=== PATIENT | male | born 1975 | race Caucasian/White ===

== ENCOUNTER → 2016-06-08 | Outpatient (CLI) | payer MEDICARE, MEDICAID ==
[~2016-06-08] MED LIST: /AUGM875TA; /NEPHROTA; ACET65TA; AMLO10TA; CARV25TA PO; CATA0.2T; CIPRO; CLON-412 PO; CLON0.2T; COLA100C2; COLA50CA; CORE12.5; CORE25TA; COUM1TAB14 PO; COUM6TAB PO; EPOGEN; KLON0.5T; KLON2TAB; KLON2TAB PO; LYRI200C; LYRI200C PO; LYRI75CA; METH10TA2; METH40TA PO; METH5TAB2; METHADONE; MINOXIDIL; NEPHROVITE; No Historical Meds; PRIL40CA PO; RENA800T; RENA800T7 PO; RENAGEL; VITATAB11 PO; XANA3TAB; [UNRECOGNIZED DRUG - CODE]; [UNRECOGNIZED DRUG - OTHER]; loratidine; minoxidil; sensipar
== END ==
LOC: M LAB 09:38
PROVIDERS: ATTEND Family Medicine
DX: F11.20 Opioid dependence, uncomplicated (principal)

== ENCOUNTER 2016-06-13 00:04 | Emergency (ER) | payer MEDICARE, MEDICAID ==
[2016-06-13] MEDS ORDERED: KETOROLAC 30 MG/ML VIAL (J1885) As Ordered ONE (01:22)
[2016-06-13 01:34] LABS: ABG BASE EXCESS 0.8 (-2.0-2.0); ABG DEVICE NASAL CANN; ABG HCO3 25.7 MEQ/L (22.0-26.0); ABG PARTIAL PRESSURE CO2 41.8 mmHg (35.0-45.0); ABG PARTIAL PRESSURE O2 96.3 mmHg (75.0-100.0); ABG STANDARD HCO3 25.2 MEQ/L (22.0-26.0); ABG TOTAL CO2 26.9 MEQ/L (22.0-29.0); ABG pH (ARTERIAL) 7.406 UNITS (7.350-7.450)
--- NOTE | 2016-06-13 03:40 | EDDOCDS ---
Nurse's Notes [facility] Name: Jas Khan Ii Age: 40 yrs Sex: Male : 1975 Arrival Date: 06/13/2016 Time: 00:04 Bed 15 Private MD: Diagnosis: Pleurodynia;Chest pain on breathing Presentation: 06/13 00:07 Presenting complaint: Patient states: Patient reports sharp pain on inspiration. jmb Patient reports that it does not radiate. Patient reports symptoms present x 3 days. Aspirin was not taken prior to arrival. Adult Sepsis Screening: The patient does not have new or worsening altered mentation. Patient's respiratory rate is less than 22. Systolic blood pressure is greater than 100. Patient has a qSOFA score of. Suicide/Homicide risk assessment- the patient denies having any suicidal and/or homicidal ideations and does not present with any other emotional, behavioral or mental health complaints. Status: Patient is not a service or work dispatcher or dependent. Transition of care: patient was not received from another setting of care. 00:07 Acuity: BRAULIO Level 3 b 00:07 Method Of Arrival: Walkin/Carried/Asstd jmb Triage Assessment: 00:09 General: Appears in no apparent distress. Pain: Location: anterior aspect of right jmb upper chest and right breast Pain currently is 8 out of 10 on a pain scale. HIV screening NA for this visit Offered previously. Neurological: Level of Consciousness is awake, alert, obeys commands, Oriented to person, place, time, Speech is normal, Facial symmetry appears normal, Facial symmetry: tongue is midline. Cardiovascular: Chest pain is described as Pain is 8 out of 10 on a pain scale. radiates Does not radiate. episodes are intermittent began 3 days ago. Respiratory: Airway is patent Respiratory effort is even, unlabored, Respiratory pattern is regular, symmetrical. Derm: Skin is pink, warm & dry. Decubitus. Musculoskeletal: Range of motion intact in all extremities. Historical: - Allergies: No known drug Allergies; - Home Meds: 1. BuSpar 10 mg Oral tab 1 tab 2 times per day 2. Coreg 3.125 mg Oral tab 1 tab 2 times per day 3. Coumadin 2 mg Oral tab once daily for has not been taking 4. gabapentin 800 mg Oral tab 1 tab twice a day 5. Lyrica 200 mg Oral 2 times per day out of 6. methadone 5 mg/5 mL Oral soln 40 mg daily 7. nephrovite 1 tab qd 8. omeprazole 20 mg Oral cpDR 1 cap once daily 9. oscal 500mg 1 tab bid 10. Renvela 800 mg oral tab 1 tab 3 times per day 11. Sensipar 30 mg oral tab 1 tab once daily 12. Xanax 2 mg Oral tab 1 tab 4 times per day - PMHx: CAD; Hypertension; Renal Failure with Dialysis; - PSHx: none; - Social history: Smoking status: Patient uses tobacco products, heavy tobacco smoker. No barriers to communication noted, The patient speaks fluent Martiniquais, Speaks appropriately for age. - Family history: Not pertinent. - : The pt / caregiver states he / she is on anticoagulants: coumadin. Home medication list is obtained from the patient. - Exposure Risk Screening:: None identified. Screenin:21 Screening information is obtained from the patient. Fall risk: No risks identified. tm5 Assistance ADL's: requires no assistance with activities of daily living. Abuse/DV Screen: The patient / caregiver reports he/she is: not in a situation that causes fear, pain or injury. Nutritional screening: No deficits noted. Advance Directives: There is no active DNR order. home support is adequate. Assessment: 00:28 General: Appears in no apparent distress, Behavior is appropriate for age, cooperative. tm5 Pain: Location: anterior aspect of right upper chest and right breast Pain currently is 5 out of 10 on a pain scale. Quality of pain is described as aching, Pain began 2-3 days ago. Neurological: Level of Consciousness is awake, alert, Oriented to person, place, time. Cardiovascular: Rhythm is sinus rhythm No ectopy. Respiratory: Airway is patent Respiratory effort is even, unlabored, Respiratory pattern is regular, symmetrical, Breath sounds are clear bilaterally. GI: No deficits noted. : No deficits noted. Derm: Skin is pink, warm & dry. 01:25 General: medicated per orders, Resp therapy at bedside to draw ABG. Cardiovascular: tm5 Rhythm is sinus rhythm No ectopy. 02:49 Reassessment: Patient appears in no apparent distress at this time. Patient states tm5 feeling better. Patient states symptoms have improved. Cardiovascular: Rhythm is sinus rhythm No ectopy. 03:38 General: [employer] taxi called for pt by this RN, pt awaiting ride in the waiting room . tm5 Vital Signs: 00:09 BP 123 / 78; Pulse 111; Resp 20; Temp 98.0(TE); Pulse Ox 100% ; Weight 61.23 kg (R); [facility] Height 5 ft. 5 in. (165.10 cm) (R); Pain 8/10; 00:26 BP 102 / 64 (auto/); tm5 00:27 Pulse 100 MON; Resp 18 S; Pulse Ox 100% on R/A; Pain 6/10; tm5 00:55 BP 121 / 61 (auto/); tm5 00:55 Pulse 100 MON; Pulse Ox 99% ; tm5 02:49 BP 122 / 58; Pulse 77; Resp 18; Pulse Ox 98% on R/A; Pain 7/10; tm5 03:35 BP 118 / 56; Pulse 74; Resp 18; Temp 98.3; Pulse Ox 100% on R/A; Pain 3/10; tm5 00:09 Body Mass Index 22.46 (61.23 kg, 165.10 cm) [facility] Vitals: 00:09 Log In Time: June 13, 2016 at 00:10. [facility] ED Course: 00:05 Patient visited by Renuka Seals Reg. hs2 00:05 Patient moved to Waiting hs2 00:08 Triage Initiated b 00:13 Jonathon Roberts DO is Attending Physician. cs11 00:13 Patient moved to 15 b 00:14 Patient visited by Jonathon Roberts DO. cs11 00:21 Patient visited by Avani Esparza RN. tm5 00:27 Awaiting ED physician evaluation. tm5 00:27 The patient / caregiver is instructed regarding the plan of care and ED course. Cardiac tm5 monitor on. Pulse ox on. NIBP on. 00:28 Avani Esparza,HARLAN is Primary Nurse. tm5 00:28 Patient visited by Avani Esparza RN. tm5 00:29 Patient visited by Syeda Reynoso, Ordering Machine Operator. jlm 00:29 EKG done. (by ED staff). Reviewed by Jonathon Roberts DO. jlm 00:59 Patient visited by Avani Esparza RN. tm5 00:59 Patient moved back from radiology. tm5 01:12 [facility] Payment Agreement was scanned into [employer] and attached to record. pm4 01:31 -Arterial Blood Gas Sent. jc3 02:28 Patient visited by Avani Esparza RN. tm5 02:49 Patient visited by Avani Esparza RN. tm5 02:49 awaiting re-evaluation by ER physician. tm5 03:35 Patient visited by Avani Esparza RN. tm5 03:35 No IV's were initiated during this patient's visit. No procedures done that require tm5 assistance. Administered Medications: 01:25 Drug: ketorolac 60 mg [ketorolac 30 mg/mL (1 mL) injection solution (2 mL)] Route: IM; tm5 Site: right gluteus; 02:00 Follow up: Response: No Adverse Reaction; Pain is decreased tm5 RT: 01:31 ABG's drawn from right radial artery pressure held for 5 minutes no bleeding noted jc3 pressure bandage applied specimen sent pt. tolerated well. Order Results: Lab Order: -Arterial Blood Gas; SPEC'M 06/13/16 01:26 Test: ABG pH (ARTERIAL); Value: 7.406; Range: 7.350-7.450; Units: UNITS; Status: F Test: ABG PARTIAL PRESSURE CO2; Value: 41.8; Range: 35.0-45.0; Units: mmHg; Status: F Test: ABG PARTIAL PRESSURE O2; Value: 96.3; Range: 75.0-100.0; Units: mmHg; Status: F Test: ABG TOTAL CO2; Value: 26.9; Range: 22.0-29.0; Units: MEQ/L; Status: F Test: ABG HCO3; Value: 25.7; Range: 22.0-26.0; Units: MEQ/L; Status: F Test: ABG BASE EXCESS; Value: 0.8; Range: -2.0-2.0; Status: F Test: ABG STANDARD HCO3; Value: 25.2; Range: 22.0-26.0; Units: MEQ/L; Status: F Test: ABG O2 SATURATION; Value: 97.4; Range: 95.0-99.0; Units: %; Status: F Test: ABG DEVICE; Value: NASAL BRYN; Status: F Outcome: 03:23 Discharge ordered by Provider. cs11 03:35 Discharge Assessment: Patient awake, alert and oriented x 3. No cognitive and/or tm5 functional deficits noted. Patient verbalized understanding of disposition instructions. patient administered narcotics - no. The following High Risk Discharge criteria are identified: None. Discharged to home ambulatory. Condition: good Condition: stable Condition: improved. Discharge instructions given to patient, Instructed on discharge instructions, follow up and referral plans. medication usage, Demonstrated understanding of instructions, medications, Pt was receptive of discharge instructions/ teaching. Prescriptions given X 1. No special radiology studies were completed. Property :Personal belongings accompany Pt. 03:39 Patient left the ED. tm5 Signatures: Jarocho Bell jc3 Jonathon Roberts, DO cs11 Robby Fernandez,RN RN Syeda Haley, Ordering Machine Operator [facility] Renuka Seals, Reg Reg hs2 Avani EsparzaRN RN tm5 Isac Do, Reg Reg pm4 MTDD
--- NOTE | 2016-06-13 03:40 | EDDOCDS ---
Physician Documentation [facility] Name: Jas Khan Ii Age: 40 yrs Sex: Male : 1975 Arrival Date: 06/13/2016 Time: 00:04 Bed 15 Private MD: Disposition: 06/13/16 03:23 Discharged to Home/Self Care. Impression: Pleurodynia, Chest pain on breathing. - Condition is Stable. - Prescriptions for ketorolac 10 mg Oral Tablet - take 1 tablet by ORAL route 3 times per day As needed MDD- 30mg. Up to 5 days total use.; 9 tablet. - Medication Reconciliation, Local Pharmacy Hours form. - Follow up: Private Physician; When: Call to arrange an appointment; Reason: Recheck today's complaints. - Problem is new. - Symptoms have improved. Historical: - Allergies: No known drug Allergies; - Home Meds: 1. BuSpar 10 mg Oral tab 1 tab 2 times per day 2. Coreg 3.125 mg Oral tab 1 tab 2 times per day 3. Coumadin 2 mg Oral tab once daily for has not been taking 4. gabapentin 800 mg Oral tab 1 tab twice a day 5. Lyrica 200 mg Oral 2 times per day out of 6. methadone 5 mg/5 mL Oral soln 40 mg daily 7. nephrovite 1 tab qd 8. omeprazole 20 mg Oral cpDR 1 cap once daily 9. oscal 500mg 1 tab bid 10. Renvela 800 mg oral tab 1 tab 3 times per day 11. Sensipar 30 mg oral tab 1 tab once daily 12. Xanax 2 mg Oral tab 1 tab 4 times per day - PMHx: CAD; Hypertension; Renal Failure with Dialysis; - PSHx: none; - Social history: Smoking status: Patient uses tobacco products, heavy tobacco smoker. No barriers to communication noted, The patient speaks fluent South Sudanese, Speaks appropriately for age. - Family history: Not pertinent. - : The pt / caregiver states he / she is on anticoagulants: coumadin. Home medication list is obtained from the patient. - Exposure Risk Screening:: None identified. Vital Signs: 06/13 00:09 BP 123 / 78; Pulse 111; Resp 20; Temp 98.0(TE); Pulse Ox 100% ; Weight 61.23 kg / jmb 134.99 lbs (R); Height 5 ft. 5 in. (165.10 cm) (R); Pain 8/10; 00:26 BP 102 / 64 (auto/); tm5 00:27 Pulse 100 MON; Resp 18 S; Pulse Ox 100% on R/A; Pain 6/10; tm5 00:55 BP 121 / 61 (auto/); tm5 00:55 Pulse 100 MON; Pulse Ox 99% ; tm5 02:49 BP 122 / 58; Pulse 77; Resp 18; Pulse Ox 98% on R/A; Pain 7/10; tm5 03:35 BP 118 / 56; Pulse 74; Resp 18; Temp 98.3; Pulse Ox 100% on R/A; Pain 3/10; tm5 00:09 Body Mass Index 22.46 (61.23 kg, 165.10 cm) jesus MDM: 00:13 ECG WITH READING ER PHYS+CARDIAG ordered. EDMS 00:54 Financial registration complete. pm4 00:55 Chest, 2 View (pa\E\lat) Ordered. EDMS 01:12 [facility] Payment Agreement was scanned into [employer] and attached to record. pm4 01:15 ketorolac 60 mg IM once ordered. cs11 01:15 Call Respiratory ordered. cs11 01:16 -Arterial Blood Gas Ordered. EDMS 01:17 Call Respiratory complete. tmm1 01:45 -Arterial Blood Gas Reviewed. cs11 Administered Medications: 01:25 Drug: ketorolac 60 mg [ketorolac 30 mg/mL (1 mL) injection solution (2 mL)] Route: IM; tm5 Site: right gluteus; 02:00 Follow up: Response: No Adverse Reaction; Pain is decreased tm5 Signatures: Dispatcher [employer] EDMS Jonathon Roberts DO DO cs11 Tata Saucedo, STYLE ADVISOR STYLE ADVISOR tmm1 Robby Fernandez RN RN jmb Avani Esparza,HARLAN RN tm5 Isac Do, Reg Reg pm4 The chart was reviewed and I authenticate all verbal orders and agree with the evaluation and treatment provided.Attachments: 01:12 [facility] Payment Agreement pm4 MTDD
--- NOTE | 2016-06-13 07:16 | ECGEPIP ---
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
--- NOTE | 2016-06-13 08:20 | REP ---
Clinical: Chest pain. Technique: PA and lateral. Comparison: 09/17/2014. Findings: Vascular stent extends from the mediastinum to the right upper extremity stable compared to prior examination. Dialysis catheter with tips in the right atrium. Evidence of prior sternotomy. Cardiac silhouette is normal. Lung tavares are clear without focal consolidation, effusion, or pneumothorax. Skeletal structures are intact. Impression: No acute cardiopulmonary process or focal consolidation. Signed by Reuben Garza MD 06/13/2016 08:11 A
--- NOTE | 2016-06-15 04:40 | EDDOCDS ---
Physician Documentation [facility] Name: Jas Khan Ii Age: 40 yrs Sex: Male : 1975 Arrival Date: 06/13/2016 Time: 00:04 Bed 15 Private MD: Disposition: 06/13/16 03:23 Discharged to Home/Self Care. Impression: Pleurodynia, Chest pain on breathing. - Condition is Stable. - Prescriptions for ketorolac 10 mg Oral Tablet - take 1 tablet by ORAL route 3 times per day As needed MDD- 30mg. Up to 5 days total use.; 9 tablet. - Medication Reconciliation, Local Pharmacy Hours form. - Follow up: Private Physician; When: Call to arrange an appointment; Reason: Recheck today's complaints. - Problem is new. - Symptoms have improved. Historical: - Allergies: No known drug Allergies; - Home Meds: 1. BuSpar 10 mg Oral tab 1 tab 2 times per day 2. Coreg 3.125 mg Oral tab 1 tab 2 times per day 3. Coumadin 2 mg Oral tab once daily for has not been taking 4. gabapentin 800 mg Oral tab 1 tab twice a day 5. Lyrica 200 mg Oral 2 times per day out of 6. methadone 5 mg/5 mL Oral soln 40 mg daily 7. nephrovite 1 tab qd 8. omeprazole 20 mg Oral cpDR 1 cap once daily 9. oscal 500mg 1 tab bid 10. Renvela 800 mg oral tab 1 tab 3 times per day 11. Sensipar 30 mg oral tab 1 tab once daily 12. Xanax 2 mg Oral tab 1 tab 4 times per day - PMHx: CAD; Hypertension; Renal Failure with Dialysis; - PSHx: none; - Social history: Smoking status: Patient uses tobacco products, heavy tobacco smoker. No barriers to communication noted, The patient speaks fluent Bruneian, Speaks appropriately for age. - Family history: Not pertinent. - : The pt / caregiver states he / she is on anticoagulants: coumadin. Home medication list is obtained from the patient. - Exposure Risk Screening:: None identified. Vital Signs: 06/13 00:09 BP 123 / 78; Pulse 111; Resp 20; Temp 98.0(TE); Pulse Ox 100% ; Weight 61.23 kg / jmb 134.99 lbs (R); Height 5 ft. 5 in. (165.10 cm) (R); Pain 8/10; 00:26 BP 102 / 64 (auto/); tm5 00:27 Pulse 100 MON; Resp 18 S; Pulse Ox 100% on R/A; Pain 6/10; tm5 00:55 BP 121 / 61 (auto/); tm5 00:55 Pulse 100 MON; Pulse Ox 99% ; tm5 02:49 BP 122 / 58; Pulse 77; Resp 18; Pulse Ox 98% on R/A; Pain 7/10; tm5 03:35 BP 118 / 56; Pulse 74; Resp 18; Temp 98.3; Pulse Ox 100% on R/A; Pain 3/10; tm5 00:09 Body Mass Index 22.46 (61.23 kg, 165.10 cm) jesus MDM: 00:13 ECG WITH READING ER PHYS+CARDIAG ordered. EDMS 00:54 Financial registration complete. pm4 00:55 Chest, 2 View (pa\E\lat) Ordered. EDMS 01:12 [facility] Payment Agreement was scanned into [employer] and attached to record. pm4 01:15 ketorolac 60 mg IM once ordered. cs11 01:15 Call Respiratory ordered. cs11 01:16 -Arterial Blood Gas Ordered. EDMS 01:17 Call Respiratory complete. tmm1 01:45 -Arterial Blood Gas Reviewed. cs11 07:43 T-Sheet-- Draft Copy was scanned into [employer] and attached to record. seh 13:11 ECG/EKG was scanned into [employer] and attached to record. gb Administered Medications: 01:25 Drug: ketorolac 60 mg [ketorolac 30 mg/mL (1 mL) injection solution (2 mL)] Route: IM; tm5 Site: right gluteus; 02:00 Follow up: Response: No Adverse Reaction; Pain is decreased tm5 Signatures: Dispatcher [employer] EDMS Zahraa Richards, Reg Reg gb Jonathon Roberts DO DO cs11 McLear, Tata, SCOOP MACHINE OPERATOR SCOOP MACHINE OPERATOR tmm1 Robby Fernandez,RN Katarina Chowdary Tonya, RN RN tm5 Isac Do, Reg Reg pm4 The chart was reviewed and I authenticate all verbal orders and agree with the evaluation and treatment provided.Attachments: 01:12 [facility] Payment Agreement pm4 07:43 T-Sheet-- Draft Copy [facility] 13:11 ECG/EKG gb Chart Complete MTDD
--- NOTE | 2016-06-15 04:40 | EDDOCDS ---
Nurse's Notes [facility] Name: Jas Khan Ii Age: 40 yrs Sex: Male : 1975 Arrival Date: 06/13/2016 Time: 00:04 Bed 15 Private MD: Diagnosis: Pleurodynia;Chest pain on breathing Presentation: 06/13 00:07 Presenting complaint: Patient states: Patient reports sharp pain on inspiration. jmb Patient reports that it does not radiate. Patient reports symptoms present x 3 days. Aspirin was not taken prior to arrival. Adult Sepsis Screening: The patient does not have new or worsening altered mentation. Patient's respiratory rate is less than 22. Systolic blood pressure is greater than 100. Patient has a qSOFA score of. Suicide/Homicide risk assessment- the patient denies having any suicidal and/or homicidal ideations and does not present with any other emotional, behavioral or mental health complaints. Status: Patient is not a environmental services worker or dependent. Transition of care: patient was not received from another setting of care. 00:07 Acuity: BRAULIO Level 3 b 00:07 Method Of Arrival: Walkin/Carried/Asstd jmb Triage Assessment: 00:09 General: Appears in no apparent distress. Pain: Location: anterior aspect of right jmb upper chest and right breast Pain currently is 8 out of 10 on a pain scale. HIV screening NA for this visit Offered previously. Neurological: Level of Consciousness is awake, alert, obeys commands, Oriented to person, place, time, Speech is normal, Facial symmetry appears normal, Facial symmetry: tongue is midline. Cardiovascular: Chest pain is described as Pain is 8 out of 10 on a pain scale. radiates Does not radiate. episodes are intermittent began 3 days ago. Respiratory: Airway is patent Respiratory effort is even, unlabored, Respiratory pattern is regular, symmetrical. Derm: Skin is pink, warm & dry. Decubitus. Musculoskeletal: Range of motion intact in all extremities. Historical: - Allergies: No known drug Allergies; - Home Meds: 1. BuSpar 10 mg Oral tab 1 tab 2 times per day 2. Coreg 3.125 mg Oral tab 1 tab 2 times per day 3. Coumadin 2 mg Oral tab once daily for has not been taking 4. gabapentin 800 mg Oral tab 1 tab twice a day 5. Lyrica 200 mg Oral 2 times per day out of 6. methadone 5 mg/5 mL Oral soln 40 mg daily 7. nephrovite 1 tab qd 8. omeprazole 20 mg Oral cpDR 1 cap once daily 9. oscal 500mg 1 tab bid 10. Renvela 800 mg oral tab 1 tab 3 times per day 11. Sensipar 30 mg oral tab 1 tab once daily 12. Xanax 2 mg Oral tab 1 tab 4 times per day - PMHx: CAD; Hypertension; Renal Failure with Dialysis; - PSHx: none; - Social history: Smoking status: Patient uses tobacco products, heavy tobacco smoker. No barriers to communication noted, The patient speaks fluent [place]an, Speaks appropriately for age. - Family history: Not pertinent. - : The pt / caregiver states he / she is on anticoagulants: coumadin. Home medication list is obtained from the patient. - Exposure Risk Screening:: None identified. Screenin:21 Screening information is obtained from the patient. Fall risk: No risks identified. tm5 Assistance ADL's: requires no assistance with activities of daily living. Abuse/DV Screen: The patient / caregiver reports he/she is: not in a situation that causes fear, pain or injury. Nutritional screening: No deficits noted. Advance Directives: There is no active DNR order. home support is adequate. Assessment: 00:28 General: Appears in no apparent distress, Behavior is appropriate for age, cooperative. tm5 Pain: Location: anterior aspect of right upper chest and right breast Pain currently is 5 out of 10 on a pain scale. Quality of pain is described as aching, Pain began 2-3 days ago. Neurological: Level of Consciousness is awake, alert, Oriented to person, place, time. Cardiovascular: Rhythm is sinus rhythm No ectopy. Respiratory: Airway is patent Respiratory effort is even, unlabored, Respiratory pattern is regular, symmetrical, Breath sounds are clear bilaterally. GI: No deficits noted. : No deficits noted. Derm: Skin is pink, warm & dry. 01:25 General: medicated per orders, Resp therapy at bedside to draw ABG. Cardiovascular: tm5 Rhythm is sinus rhythm No ectopy. 02:49 Reassessment: Patient appears in no apparent distress at this time. Patient states tm5 feeling better. Patient states symptoms have improved. Cardiovascular: Rhythm is sinus rhythm No ectopy. 03:38 General: Medicaid taxi called for pt by this RN, pt awaiting ride in the waiting room . tm5 Vital Signs: 00:09 BP 123 / 78; Pulse 111; Resp 20; Temp 98.0(TE); Pulse Ox 100% ; Weight 61.23 kg (R); [facility] Height 5 ft. 5 in. (165.10 cm) (R); Pain 8/10; 00:26 BP 102 / 64 (auto/); tm5 00:27 Pulse 100 MON; Resp 18 S; Pulse Ox 100% on R/A; Pain 6/10; tm5 00:55 BP 121 / 61 (auto/); tm5 00:55 Pulse 100 MON; Pulse Ox 99% ; tm5 02:49 BP 122 / 58; Pulse 77; Resp 18; Pulse Ox 98% on R/A; Pain 7/10; tm5 03:35 BP 118 / 56; Pulse 74; Resp 18; Temp 98.3; Pulse Ox 100% on R/A; Pain 3/10; tm5 00:09 Body Mass Index 22.46 (61.23 kg, 165.10 cm) [facility] Vitals: 00:09 Log In Time: June 13, 2016 at 00:10. [facility] ED Course: 00:05 Patient visited by Renuka Seals Reg. hs2 00:05 Patient moved to Waiting hs2 00:08 Triage Initiated b 00:13 Jonathon Barker DO is Attending Physician. cs11 00:13 Patient moved to 15 b 00:14 Patient visited by Jonathon Barker DO. cs11 00:21 Patient visited by Avani Esparza RN. tm5 00:27 Awaiting ED physician evaluation. tm5 00:27 The patient / caregiver is instructed regarding the plan of care and ED course. Cardiac tm5 monitor on. Pulse ox on. NIBP on. 00:28 Avani Esparza,HARLAN is Primary Nurse. tm5 00:28 Patient visited by Avani Esparza RN. tm5 00:29 Patient visited by Syeda Reynoso, Digital Producer. jlm 00:29 EKG done. (by ED staff). Reviewed by Jonathon Barker DO. jlm 00:59 Patient visited by Avani Esparza RN. tm5 00:59 Patient moved back from radiology. tm5 01:12 [facility] Payment Agreement was scanned into [employer] and attached to record. pm4 01:31 -Arterial Blood Gas Sent. jc3 02:28 Patient visited by Avani Esparza,HARLAN. tm5 02:49 Patient visited by Avani Esparza RN. tm5 02:49 awaiting re-evaluation by ER physician. tm5 03:35 Patient visited by Avani Esparza,HARLAN. tm5 03:35 No IV's were initiated during this patient's visit. No procedures done that require tm5 assistance. 07:23 EKG-ADULT Returned. EDMS 07:43 T-Sheet-- Draft Copy was scanned into [employer] and attached to record. seh 08:46 Chest, 2 View (pa\E\lat) Returned. EDMS 13:11 ECG/EKG was scanned into [employer] and attached to record. gb Administered Medications: 01:25 Drug: ketorolac 60 mg [ketorolac 30 mg/mL (1 mL) injection solution (2 mL)] Route: IM; tm5 Site: right gluteus; 02:00 Follow up: Response: No Adverse Reaction; Pain is decreased tm5 RT: 01:31 ABG's drawn from right radial artery pressure held for 5 minutes no bleeding noted jc3 pressure bandage applied specimen sent pt. tolerated well. Order Results: Lab Order: -Arterial Blood Gas; SPEC'M 06/13/16 01:26 Test: ABG pH (ARTERIAL); Value: 7.406; Range: 7.350-7.450; Units: UNITS; Status: F Test: ABG PARTIAL PRESSURE CO2; Value: 41.8; Range: 35.0-45.0; Units: mmHg; Status: F Test: ABG PARTIAL PRESSURE O2; Value: 96.3; Range: 75.0-100.0; Units: mmHg; Status: F Test: ABG TOTAL CO2; Value: 26.9; Range: 22.0-29.0; Units: MEQ/L; Status: F Test: ABG HCO3; Value: 25.7; Range: 22.0-26.0; Units: MEQ/L; Status: F Test: ABG BASE EXCESS; Value: 0.8; Range: -2.0-2.0; Status: F Test: ABG STANDARD HCO3; Value: 25.2; Range: 22.0-26.0; Units: MEQ/L; Status: F Test: ABG O2 SATURATION; Value: 97.4; Range: 95.0-99.0; Units: %; Status: F Test: ABG DEVICE; Value: NASAL BRYN; Status: F Radiology Order: EKG-ADULT Test: EKG-ADULT REASON FOR EXAMINATION: Chest Pain; Stationary ECG Study; [facility] - ED; ; Test Date: 2016-06-13; Pat Name: JAS KHAN II Department:; Room: -; Gender: M 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: onel; : 1975 Requested By: JONATHON BARKER; Order Number: [id number] Reading MD: Katarina Crum; Measurements; Intervals [place]; Rate: 99 P: 75; IL: 127 QRS: 83; QRSD: 88 T: 71; QT: 334; QTc: 430; Interpretive Statements; SINUS RHYTHM; RIGHT ATRIAL ENLARGEMENT; NONSPECIFIC T-WAVE ABNORMALITY; DECREASED RATE 01/19/15; Electronically Signed On 06-13-2016 7:15:54 EST by Katarina Crum; Radiology Order: Chest, 2 View (pa\E\lat) Test: Chest, 2 View (pa\E\lat) REASON FOR EXAMINATION: Chest Pain; Clinical: Chest pain.; ; Technique: PA and lateral.; ; Comparison: 09/17/2014.; ; Findings:; Vascular stent extends from the mediastinum to the right upper extremity stable; compared to prior examination. Dialysis catheter with tips in the right atrium.; Evidence of prior sternotomy. Cardiac silhouette is normal. Lung tavares are; clear without focal consolidation, effusion, or pneumothorax. Skeletal; structures are intact.; ; Impression:; No acute cardiopulmonary process or focal consolidation.; ; ; Signed by; Reuben Garza MD 06/13/2016 08:11 A; Outcome: 03:23 Discharge ordered by Provider. cs11 03:35 Discharge Assessment: Patient awake, alert and oriented x 3. No cognitive and/or tm5 functional deficits noted. Patient verbalized understanding of disposition instructions. patient administered narcotics - no. The following High Risk Discharge criteria are identified: None. Discharged to home ambulatory. Condition: good Condition: stable Condition: improved. Discharge instructions given to patient, Instructed on discharge instructions, follow up and referral plans. medication usage, Demonstrated understanding of instructions, medications, Pt was receptive of discharge instructions/ teaching. Prescriptions given X 1. No special radiology studies were completed. Property :Personal belongings accompany Pt. 03:39 Patient left the ED. tm5 Signatures: Dispatcher [employer] EDMS Zahraa Richards, Reg Reg gb Jarocho Bell jc3 Jonathon Barker, DO cs11 Robby Fernandez,RN RN Syeda Haley, Digital Producer Unit m Renuka Seals, Reg Reg hs2 Katarina Waggoner Tonya, RN RN tm5 Isac Do, Reg Reg pm4 Chart Complete [facility]
--- NOTE | 2016-06-15 04:40 | EDDOCDS ---
Physician Documentation [facility] Name: Jas Khan Ii Age: 40 yrs Sex: Male : 1975 Arrival Date: 06/13/2016 Time: 00:04 Bed 15 Private MD: Disposition: 06/13/16 03:23 Discharged to Home/Self Care. Impression: Pleurodynia, Chest pain on breathing. - Condition is Stable. - Prescriptions for ketorolac 10 mg Oral Tablet - take 1 tablet by ORAL route 3 times per day As needed MDD- 30mg. Up to 5 days total use.; 9 tablet. - Medication Reconciliation, Local Pharmacy Hours form. - Follow up: Private Physician; When: Call to arrange an appointment; Reason: Recheck today's complaints. - Problem is new. - Symptoms have improved. Historical: - Allergies: No known drug Allergies; - Home Meds: 1. BuSpar 10 mg Oral tab 1 tab 2 times per day 2. Coreg 3.125 mg Oral tab 1 tab 2 times per day 3. Coumadin 2 mg Oral tab once daily for has not been taking 4. gabapentin 800 mg Oral tab 1 tab twice a day 5. Lyrica 200 mg Oral 2 times per day out of 6. methadone 5 mg/5 mL Oral soln 40 mg daily 7. nephrovite 1 tab qd 8. omeprazole 20 mg Oral cpDR 1 cap once daily 9. oscal 500mg 1 tab bid 10. Renvela 800 mg oral tab 1 tab 3 times per day 11. Sensipar 30 mg oral tab 1 tab once daily 12. Xanax 2 mg Oral tab 1 tab 4 times per day - PMHx: CAD; Hypertension; Renal Failure with Dialysis; - PSHx: none; - Social history: Smoking status: Patient uses tobacco products, heavy tobacco smoker. No barriers to communication noted, The patient speaks fluent Canadian, Speaks appropriately for age. - Family history: Not pertinent. - : The pt / caregiver states he / she is on anticoagulants: coumadin. Home medication list is obtained from the patient. - Exposure Risk Screening:: None identified. Vital Signs: 06/13 00:09 BP 123 / 78; Pulse 111; Resp 20; Temp 98.0(TE); Pulse Ox 100% ; Weight 61.23 kg / jmb 134.99 lbs (R); Height 5 ft. 5 in. (165.10 cm) (R); Pain 8/10; 00:26 BP 102 / 64 (auto/); tm5 00:27 Pulse 100 MON; Resp 18 S; Pulse Ox 100% on R/A; Pain 6/10; tm5 00:55 BP 121 / 61 (auto/); tm5 00:55 Pulse 100 MON; Pulse Ox 99% ; tm5 02:49 BP 122 / 58; Pulse 77; Resp 18; Pulse Ox 98% on R/A; Pain 7/10; tm5 03:35 BP 118 / 56; Pulse 74; Resp 18; Temp 98.3; Pulse Ox 100% on R/A; Pain 3/10; tm5 00:09 Body Mass Index 22.46 (61.23 kg, 165.10 cm) jesus MDM: 00:13 ECG WITH READING ER PHYS+CARDIAG ordered. EDMS 00:54 Financial registration complete. pm4 00:55 Chest, 2 View (pa\E\lat) Ordered. EDMS 01:12 [facility] Payment Agreement was scanned into [employer] and attached to record. pm4 01:15 ketorolac 60 mg IM once ordered. cs11 01:15 Call Respiratory ordered. cs11 01:16 -Arterial Blood Gas Ordered. EDMS 01:17 Call Respiratory complete. tmm1 01:45 -Arterial Blood Gas Reviewed. cs11 07:43 T-Sheet-- Draft Copy was scanned into [employer] and attached to record. seh 13:11 ECG/EKG was scanned into [employer] and attached to record. gb Administered Medications: 01:25 Drug: ketorolac 60 mg [ketorolac 30 mg/mL (1 mL) injection solution (2 mL)] Route: IM; tm5 Site: right gluteus; 02:00 Follow up: Response: No Adverse Reaction; Pain is decreased tm5 Signatures: Dispatcher [employer] EDMS Zahraa Richards, Reg Reg gb Jonathon Roberts DO DO cs11 McLear, Tata, DIRECTOR OF INFECTION PREVENTION DIRECTOR OF INFECTION PREVENTION tmm1 Robby Fernandez,RN Katarina Chowdary Tonya, RN RN tm5 Isac Do, Reg Reg pm4 The chart was reviewed and I authenticate all verbal orders and agree with the evaluation and treatment provided.Attachments: 01:12 [facility] Payment Agreement pm4 07:43 T-Sheet-- Draft Copy [facility] 13:11 ECG/EKG gb Chart Complete MTDD
== END 2016-06-13 03:39 | disposition home or self-care (01) ==
LOC: M ED 00:04
DX: R07.81 Pleurodynia (principal); I25.10 Atherosclerotic heart disease of native coronary artery without angina pectoris; I12.9 Hypertensive chronic kidney disease with stage 1 through stage 4 chronic kidney disease, or unspecified chronic kidney disease; N18.9 Chronic kidney disease, unspecified; Z99.2 Dependence on renal dialysis; F17.200 Nicotine dependence, unspecified, uncomplicated; Z79.01 Long term (current) use of anticoagulants; Z79.899 Other long term (current) drug therapy
CPT/HCPCS: 36600; 71020; 82803; 93005; 96372; 99284; J1885

== ENCOUNTER → 2016-07-01 | Outpatient (CLI) | payer MEDICARE, MEDICAID ==
[~2016-07-01] MED LIST changes: +LIDOCAINE 1% MDV 20ML VIAL As Ordered ONE; +LIDOCAINE 2% MDV 20 ML VIAL As Ordered ONE; +SODIUM BICARBONATE 8.4% INJ 50MEQ 50 ML VIAL As Ordered ONE
--- NOTE | 2016-07-01 17:40 | REPKIM ---
CLINICAL HISTORY: Patient with ESRD presents with a tunneled left IJ hemodialysis catheter. Patient now has a functioning left femoral AVG. The referring nephrology service has requested to remove the TDC because it is no longer needed. PROCEDURE PERFORMED: Left IJ Tunneled Dialysis Catheter Removal INTERVENTIONALIST: Dr. Lesley Wilkerson CONSENT: The risks, benefits and alternatives to the procedure were explained to the patient and informed written consent was obtained. MEDICATION: Local Lidocaine 2% EBL: 5 mL PROCEDURE/FINDINGS: The patient was brought to the interventional radiology suite and placed in the supine position with head of bed elevated. Time out procedure was performed. The area was prepped and draped in a usual sterile fashion. Local anesthesia was administered subcutaneously to the catheter exit site using 2% Lidocaine. The catheter cuff was bluntly dissected free from the surrounding soft tissues. The catheter was removed, inspected and confirmed to be removed in its entirety. Hemostasis was achieved by manual compression. A sterile dressing was applied. The patient tolerated the procedure well with no immediate complications. No imaging was used. Dr. Wilkerson was present. IMPRESSION: Tunneled dialysis catheter removal as discussed above. cc: Camila Webster MD MTDD
== END | disposition home or self-care (01) ==
LOC: M IRPRO 12:52
PROVIDERS: ATTEND Internal Medicine Nephrology
DX: Z45.2 Encounter for adjustment and management of vascular access device (principal); N18.6 End stage renal disease

== ENCOUNTER 2016-07-02 16:22 | Emergency (ER) | payer MEDICARE, MEDICAID ==
[~2016-07-02 16:22] MED LIST changes: -LIDOCAINE 1% MDV 20ML VIAL As Ordered ONE; -LIDOCAINE 2% MDV 20 ML VIAL As Ordered ONE; -SODIUM BICARBONATE 8.4% INJ 50MEQ 50 ML VIAL As Ordered ONE
[2016-07-02] MEDS ORDERED: PERCOCET 5MG/325MG TAB As Ordered ONE (17:47)
--- NOTE | 2016-07-02 19:02 | REP ---
PA CHEST WITH LEFT RIB SERIES: 07/02/2016. COMPARISON: 06/13/2016 chest x-ray. CLINICAL HISTORY: Trauma, patient fell with bruising left chest. FINDINGS: PA CHEST: Sternotomy wires and clips from CABG are noted. There is no gross cardiomegaly, vascular redistribution or joyce edema. Underlying mild prominence of interstitial markings seen. No effusion, lateral pleural thickening, apical scar or pneumothorax. Wall stents are noted in the right subclavian and axillary vein into the brachial vein in the right upper extremity. There are surgical clips and calcifications in the soft tissues of the medial upper arm on the left, likely from dialysis graft. The left subclavian dialysis catheter has been removed since the previous chest. No free air under the diaphragm. No visible fracture. LEFT RIBS: Four views of the left ribs show no visible or displaced rib fracture. The bones are demineralized and washed out radiographically, which could obscure subtle nondisplaced fractures. There is no effusion, lateral pleural thickening, apical scarring or pneumothorax. Clavicle, scapula and humerus are intact. Visualized vertebral bodies show no compression deformity. The posterior rib articulations intact. IMPRESSION: 1. No acute cardiopulmonary change. Some chronic changes in the chest with wall stents and the subclavian and the axillary vein and brachial vein in the right upper extremity along with sternotomy wires and clips from CABG. 2. Interval removal of the left subclavian catheter in the previous chest x-ray 2 weeks ago. 3. Demineralization of the bones makes exclusion of a nondisplaced fracture very difficult, but no visible or displaced fracture, pleural effusion or pneumothorax. Signed by Jules Gudino MD 07/02/2016 07:57 P
--- NOTE | 2016-07-02 19:28 | EDDOCDS ---
Nurse's Notes [facility] Name: Joyce Khan Ii Age: 40 yrs Sex: Male : 1975 Arrival Date: 07/02/2016 Time: 16:22 Bed PR1 / 25 Private MD: Camila Webster Diagnosis: Contusion of left front wall of thorax Presentation: 07/02 16:36 Presenting complaint: Patient states: Slipped and fell onto the coffee table. Has pain jo3 to left arm and left rib area. Adult Sepsis Screening: The patient does not have new or worsening altered mentation. Patient's respiratory rate is less than 22. Systolic blood pressure is greater than 100. Patient has a qSOFA score of 0- Negative Sepsis Screen. Suicide/Homicide risk assessment- the patient denies having any suicidal and/or homicidal ideations and does not present with any other emotional, behavioral or mental health complaints. Status: Patient is not a therapeutic activities services worker or dependent. Transition of care: patient was not received from another setting of care. 16:36 Acuity: BRAULIO Level 4 jo3 16:36 Method Of Arrival: Walkin/Carried/Asstd jo3 Triage Assessment: 16:39 General: Appears in no apparent distress, Behavior is appropriate for age, cooperative. jo3 Pain: Pain currently is 10 out of 10 on a pain scale. HIV screening NA for this visit Offered previously. Neurological: Level of Consciousness is awake, alert. Historical: - Allergies: No known drug Allergies; - Home Meds: 1. BuSpar 10 mg Oral tab 1 tab 2 times per day 2. Coreg 3.125 mg Oral tab 1 tab 2 times per day 3. Coumadin 2 mg Oral tab once daily for has not been taking 4. gabapentin 800 mg Oral tab 1 tab twice a day 5. Lyrica 200 mg Oral 2 times per day out of 6. methadone 5 mg/5 mL Oral soln 40 mg daily 7. nephrovite 1 tab qd 8. omeprazole 20 mg Oral cpDR 1 cap once daily 9. oscal 500mg 1 tab bid 10. Renvela 800 mg oral tab 1 tab 3 times per day 11. Sensipar 30 mg oral tab 1 tab once daily 12. Xanax 2 mg Oral tab 1 tab 4 times per day - PMHx: CAD; Hypertension; Renal Failure with Dialysis; - PSHx: none; - Social history: Smoking status: Patient uses tobacco products, light tobacco smoker. No barriers to communication noted, The patient speaks fluent Monegasque, Speaks appropriately for age. - Family history: Not pertinent. - : The pt / caregiver states he / she is on anticoagulants: coumadin. Home medication list is obtained from the patient. - Exposure Risk Screening:: None identified. Screenin:05 Fall risk: No risks identified. Assistance ADL's: requires no assistance with jo3 activities of daily living. Abuse/DV Screen: The patient / caregiver reports he/she is: not in a situation that causes fear, pain or injury. Nutritional screening: No deficits noted. Advance Directives: There is no active DNR order. home support is adequate. 19:26 Screening information is obtained from the patient. jo3 Assessment: 18:50 General: Appears in no apparent distress, Behavior is cooperative, flat. Neurological: jo3 Level of Consciousness is awake, alert, Oriented to person, place, time. Respiratory: Airway is patent Respiratory effort is even, unlabored. Derm: 19:21 Reassessment: Pt dissatisfied with provider decision to prescribe Lidoderm. Asking to jo3 speak to surgical garment assembly supervisor. Penelope Zamarripa notified and went to room . 19:26 Reassessment: Pt refused paperwork and left ED . jo3 Vital Signs: 16:24 BP 102 / 62; Pulse 116; Resp 20; Temp 98.5(O); Pulse Ox 96% ; Weight 61.23 kg; Height 5 elp ft. 5 in. (165.10 cm); Pain 10/10; 19:01 BP 102 / 56; Pulse 108; Resp 18; Temp 97.6(O); Pulse Ox 98% on R/A; Pain 10/10; ct3 16:24 Body Mass Index 22.46 (61.23 kg, 165.10 cm) [facility] Vitals: 16:24 Log In Time: July 02, 2016 at 16:10. [facility] ED Course: 16:23 Patient visited by Zena Lee PCA. elp 16:23 Patient moved to Waiting elp 16:24 Camila Webster is Private Physician. elp 16:25 Patient visited by Zena Lee PCA. elp 16:25 Patient moved to Pre RCE elp 16:38 Triage Initiated jo3 16:40 Patient visited by Stefanie Matamoros RN. jo3 17:25 Jaime Duarte PA-C is PHCP. cc10 17:25 Kd Carrillo MD is Attending Physician. cc10 17:25 Patient moved to Triage 3 ct3 17:34 Patient visited by Malia Lozano RN. ck1 17:34 Patient visited by Jaime Duarte PA-C. cc10 17:34 Patient visited by Jaime Duarte PA-C. cc10 17:51 Patient moved to TR2 kcs 17:55 ON LICENSE OF [facility] Payment Agreement was scanned into [email or web address] and attached to record. gjb 18:06 Patient visited by Kristy Brian PCA. ct3 18:49 Patient moved to PR1 / 25 kcs 19:01 Patient visited by Kristy Brian PCA. ct3 19:05 The patient / caregiver is instructed regarding the plan of care and ED course. jo3 19:05 No IV's were initiated during this patient's visit. No procedures done that require jo3 assistance. 19:09 Camila Webster is Referral Physician. cc10 19:17 [facility] is Referral Physician. cc10 19:19 Rib Unilat W/PA Chest Only Returned. EDMS 19:22 Patient visited by Stefanie Matamoros RN. jo3 Administered Medications: 17:50 Drug: oxyCODONE-acetaminophen 1 tabs [oxycodone-acetaminophen 5 mg-325 mg tablet (1 kcs tabs)] Route: PO; 17:50 Follow up: Response: Confirmed pt not driving. kcs Order Results: Radiology Order: Rib Unilat W/PA Chest Only Test: Rib Unilat W/PA Chest Only REASON FOR EXAMINATION: Trauma; PA CHEST WITH LEFT RIB SERIES: 07/02/2016.; ; COMPARISON: 06/13/2016 chest x-ray.; ; CLINICAL HISTORY: Trauma, patient fell with bruising left chest.; ; FINDINGS:; ; PA CHEST: Sternotomy wires and clips from CABG are noted. There is no gross; cardiomegaly, vascular redistribution or joyce edema. Underlying mild prominence; of interstitial markings seen. No effusion, lateral pleural thickening, apical; scar or pneumothorax. Wall stents are noted in the right subclavian and axillary; vein into the brachial vein in the right upper extremity. There are surgical; clips and calcifications in the soft tissues of the medial upper arm on the left,; likely from dialysis graft. The left subclavian dialysis catheter has been; removed since the previous chest. No free air under the diaphragm. No visible; fracture.; ; LEFT RIBS: Four views of the left ribs show no visible or displaced rib fracture.; The bones are demineralized and washed out radiographically, which could obscure; subtle nondisplaced fractures. There is no effusion, lateral pleural thickening,; apical scarring or pneumothorax. Clavicle, scapula and humerus are intact.; Visualized vertebral bodies show no compression deformity. The posterior rib; articulations intact.; ; IMPRESSION:; 1. No acute cardiopulmonary change. Some chronic changes in the chest with wall; stents and the subclavian and the axillary vein and brachial vein in the right; upper extremity along with sternotomy wires and clips from CABG.; 2. Interval removal of the left subclavian catheter in the previous chest x-ray; 2 weeks ago.; 3. Demineralization of the bones makes exclusion of a nondisplaced fracture very; difficult, but no visible or displaced fracture, pleural effusion or; pneumothorax.; ; ; ; ; Unreviewed; Outcome: 19:05 Discharge Assessment: Patient awake, alert and oriented x 3. No cognitive and/or jo3 functional deficits noted. Patient verbalized understanding of disposition instructions. patient administered narcotics - no. The following High Risk Discharge criteria are identified: None. Discharged to home ambulatory. Condition: stable. No special radiology studies were completed. Property sent home with patient. 19:09 Discharge ordered by Provider. cc10 19:28 Patient left the ED. jo3 Signatures: Dispatcher [employer] EDIN Re Garduno RN RN [facility] Malia LozanoRN RN ck1 Stefanie MatamorosRN RN jo3 Kristy Brian, ELECTRICAL AND RADIO AIRCRAFT MECHANIC ELECTRICAL AND RADIO AIRCRAFT MECHANIC ct3 Zena Lee, ELECTRICAL AND RADIO AIRCRAFT MECHANIC ELECTRICAL AND RADIO AIRCRAFT MECHANIC elp Jaime Duarte, PA-C PA-C cc10 Génesis Koch Corrections: (The following items were deleted from the chart) 19:27 19:26 Reassessment: Pt refused paperwork and VS and left ED . jo3 jo3 MTDD
--- NOTE | 2016-07-02 19:28 | EDDOCDS ---
Physician Documentation [facility] Name: Jas Khan Ii Age: 40 yrs Sex: Male : 1975 Arrival Date: 07/02/2016 Time: 16:22 Bed PR Private MD: Camila Webster Disposition: 07/02/16 19:09 Discharged to Home/Self Care. Impression: Contusion of left front wall of thorax. - Condition is Stable. - Discharge Instructions: Chest Contusion. - Prescriptions for Lidoderm 5 % Topical - apply to affected area 1 application by TOPICAL route as needed; 1 box. - Medication Reconciliation, Local Pharmacy Hours form. - Follow up: Camila Webster; When: Call to arrange an appointment; Reason: Recheck today's complaints, Continuance of care. [facility]; When: Call to arrange an appointment; Reason: Wound/Symptom Recheck, Recheck today's complaints, Worsening of conditions, Continuance of care. - Problem is an ongoing problem. - Symptoms are unchanged. Historical: - Allergies: No known drug Allergies; - Home Meds: 1. BuSpar 10 mg Oral tab 1 tab 2 times per day 2. Coreg 3.125 mg Oral tab 1 tab 2 times per day 3. Coumadin 2 mg Oral tab once daily for has not been taking 4. gabapentin 800 mg Oral tab 1 tab twice a day 5. Lyrica 200 mg Oral 2 times per day out of 6. methadone 5 mg/5 mL Oral soln 40 mg daily 7. nephrovite 1 tab qd 8. omeprazole 20 mg Oral cpDR 1 cap once daily 9. oscal 500mg 1 tab bid 10. Renvela 800 mg oral tab 1 tab 3 times per day 11. Sensipar 30 mg oral tab 1 tab once daily 12. Xanax 2 mg Oral tab 1 tab 4 times per day - PMHx: CAD; Hypertension; Renal Failure with Dialysis; - PSHx: none; - Social history: Smoking status: Patient uses tobacco products, light tobacco smoker. No barriers to communication noted, The patient speaks fluent Sudanese, Speaks appropriately for age. - Family history: Not pertinent. - : The pt / caregiver states he / she is on anticoagulants: coumadin. Home medication list is obtained from the patient. - Exposure Risk Screening:: None identified. Vital Signs: 02 16:24 BP 102 / 62; Pulse 116; Resp 20; Temp 98.5(O); Pulse Ox 96% ; Weight 61.23 kg / 134.99 elp lbs; Height 5 ft. 5 in. (165.10 cm); Pain 10/10; 19:01 BP 102 / 56; Pulse 108; Resp 18; Temp 97.6(O); Pulse Ox 98% on R/A; Pain 10/10; ct3 16:24 Body Mass Index 22.46 (61.23 kg, 165.10 cm) elp MDM: 17:44 oxyCODONE-acetaminophen 5 mg-325 mg 1 tabs PO once ordered. cc10 17:45 Rib Unilat W/PA Chest Only Ordered. EDMS 17:51 Financial registration complete. ruben 17:55 [facility] Payment Agreement was scanned into [employer] and attached to record. gjfarrukh Administered Medications: 17:50 Drug: oxyCODONE-acetaminophen 1 tabs [oxycodone-acetaminophen 5 mg-325 mg tablet (1 kcs tabs)] Route: PO; 17:50 Follow up: Response: Confirmed pt not driving. kcs Signatures: Dispatcher [employer] EDMS Stefanie Matamoros RN RN Jaime Rojo, PATeressaC PA-C cc10 Génesis Koch Kacey RN kcs The chart was reviewed and I authenticate all verbal orders and agree with the evaluation and treatment provided.Attachments: 17:55 [facility] Payment Agreement gjfarrukh MTDD
--- NOTE | 2016-07-04 20:29 | EDDOCDS ---
Nurse's Notes [facility] Name: Joyce Khan Ii Age: 40 yrs Sex: Male : 1975 Arrival Date: 07/02/2016 Time: 16:22 Bed PR1 / 25 Private MD: Camila Webster Diagnosis: Contusion of left front wall of thorax Presentation: 07/02 16:36 Presenting complaint: Patient states: Slipped and fell onto the coffee table. Has pain jo3 to left arm and left rib area. Adult Sepsis Screening: The patient does not have new or worsening altered mentation. Patient's respiratory rate is less than 22. Systolic blood pressure is greater than 100. Patient has a qSOFA score of 0- Negative Sepsis Screen. Suicide/Homicide risk assessment- the patient denies having any suicidal and/or homicidal ideations and does not present with any other emotional, behavioral or mental health complaints. Status: Patient is not a underwriting service representative or dependent. Transition of care: patient was not received from another setting of care. 16:36 Acuity: BRAULIO Level 4 jo3 16:36 Method Of Arrival: Walkin/Carried/Asstd jo3 Triage Assessment: 16:39 General: Appears in no apparent distress, Behavior is appropriate for age, cooperative. jo3 Pain: Pain currently is 10 out of 10 on a pain scale. HIV screening NA for this visit Offered previously. Neurological: Level of Consciousness is awake, alert. Historical: - Allergies: No known drug Allergies; - Home Meds: 1. BuSpar 10 mg Oral tab 1 tab 2 times per day 2. Coreg 3.125 mg Oral tab 1 tab 2 times per day 3. Coumadin 2 mg Oral tab once daily for has not been taking 4. gabapentin 800 mg Oral tab 1 tab twice a day 5. Lyrica 200 mg Oral 2 times per day out of 6. methadone 5 mg/5 mL Oral soln 40 mg daily 7. nephrovite 1 tab qd 8. omeprazole 20 mg Oral cpDR 1 cap once daily 9. oscal 500mg 1 tab bid 10. Renvela 800 mg oral tab 1 tab 3 times per day 11. Sensipar 30 mg oral tab 1 tab once daily 12. Xanax 2 mg Oral tab 1 tab 4 times per day - PMHx: CAD; Hypertension; Renal Failure with Dialysis; - PSHx: none; - Social history: Smoking status: Patient uses tobacco products, light tobacco smoker. No barriers to communication noted, The patient speaks fluent Barbadian, Speaks appropriately for age. - Family history: Not pertinent. - : The pt / caregiver states he / she is on anticoagulants: coumadin. Home medication list is obtained from the patient. - Exposure Risk Screening:: None identified. Screenin:05 Fall risk: No risks identified. Assistance ADL's: requires no assistance with jo3 activities of daily living. Abuse/DV Screen: The patient / caregiver reports he/she is: not in a situation that causes fear, pain or injury. Nutritional screening: No deficits noted. Advance Directives: There is no active DNR order. home support is adequate. 19:26 Screening information is obtained from the patient. jo3 Assessment: 18:50 General: Appears in no apparent distress, Behavior is cooperative, flat. Neurological: jo3 Level of Consciousness is awake, alert, Oriented to person, place, time. Respiratory: Airway is patent Respiratory effort is even, unlabored. Derm: 19:21 Reassessment: Pt dissatisfied with provider decision to prescribe Lidoderm. Asking to jo3 speak to supervisor matrix. Penelope Zamarripa notified and went to room . 19:26 Reassessment: Pt refused paperwork and left ED . jo3 Vital Signs: 16:24 BP 102 / 62; Pulse 116; Resp 20; Temp 98.5(O); Pulse Ox 96% ; Weight 61.23 kg; Height 5 elp ft. 5 in. (165.10 cm); Pain 10/10; 19:01 BP 102 / 56; Pulse 108; Resp 18; Temp 97.6(O); Pulse Ox 98% on R/A; Pain 10/10; ct3 16:24 Body Mass Index 22.46 (61.23 kg, 165.10 cm) [facility] Vitals: 16:24 Log In Time: July 02, 2016 at 16:10. [facility] ED Course: 16:23 Patient visited by Zena Lee PCA. elp 16:23 Patient moved to Waiting elp 16:24 Camila Webster is Private Physician. elp 16:25 Patient visited by Zena Lee PCA. elp 16:25 Patient moved to Pre RCE elp 16:38 Triage Initiated jo3 16:40 Patient visited by Stefanie Matamoros RN. jo3 17:25 Jaime Duarte PA-C is PHCP. cc10 17:25 Kd Carrillo MD is Attending Physician. cc10 17:25 Patient moved to Triage 3 ct3 17:34 Patient visited by Malia Lozano RN. ck1 17:34 Patient visited by Jaime Duarte PA-C. cc10 17:34 Patient visited by Jaime Duarte PA-C. cc10 17:51 Patient moved to TR2 kcs 17:55 [facility] Payment Agreement was scanned into [employer] and attached to record. gjb 18:06 Patient visited by Kristy Brian PCA. ct3 18:49 Patient moved to PR1 / 25 kcs 19:01 Patient visited by Kristy Brian PCA. ct3 19:05 The patient / caregiver is instructed regarding the plan of care and ED course. jo3 19:05 No IV's were initiated during this patient's visit. No procedures done that require jo3 assistance. 19:09 Camila Webster is Referral Physician. cc10 19:17 [facility] is Referral Physician. cc10 19:19 Rib Unilat W/PA Chest Only Returned. EDMS 19:22 Patient visited by Stefanie Matamoros RN. jo3 0203 11:45 T-Sheet-- Draft Copy was scanned into [employer] and attached to record. gb Administered Medications: 07/02 17:50 Drug: oxyCODONE-acetaminophen 1 tabs [oxycodone-acetaminophen 5 mg-325 mg tablet (1 kcs tabs)] Route: PO; 17:50 Follow up: Response: Confirmed pt not driving. kcs Order Results: Radiology Order: Rib Unilat W/PA Chest Only Test: Rib Unilat W/PA Chest Only REASON FOR EXAMINATION: Trauma; PA CHEST WITH LEFT RIB SERIES: 07/02/2016.; ; COMPARISON: 06/13/2016 chest x-ray.; ; CLINICAL HISTORY: Trauma, patient fell with bruising left chest.; ; FINDINGS:; ; PA CHEST: Sternotomy wires and clips from CABG are noted. There is no gross; cardiomegaly, vascular redistribution or joyce edema. Underlying mild prominence; of interstitial markings seen. No effusion, lateral pleural thickening, apical; scar or pneumothorax. Wall stents are noted in the right subclavian and axillary; vein into the brachial vein in the right upper extremity. There are surgical; clips and calcifications in the soft tissues of the medial upper arm on the left,; likely from dialysis graft. The left subclavian dialysis catheter has been; removed since the previous chest. No free air under the diaphragm. No visible; fracture.; ; LEFT RIBS: Four views of the left ribs show no visible or displaced rib fracture.; The bones are demineralized and washed out radiographically, which could obscure; subtle nondisplaced fractures. There is no effusion, lateral pleural thickening,; apical scarring or pneumothorax. Clavicle, scapula and humerus are intact.; Visualized vertebral bodies show no compression deformity. The posterior rib; articulations intact.; ; IMPRESSION:; ; 1. No acute cardiopulmonary change. Some chronic changes in the chest with wall; stents and the subclavian and the axillary vein and brachial vein in the right; upper extremity along with sternotomy wires and clips from CABG.; ; 2. Interval removal of the left subclavian catheter in the previous chest x-ray; 2 weeks ago.; ; 3. Demineralization of the bones makes exclusion of a nondisplaced fracture very; difficult, but no visible or displaced fracture, pleural effusion or; pneumothorax.; ; ; Signed by; Jules Gudino MD 07/02/2016 07:57 P; Outcome: 19:05 Discharge Assessment: Patient awake, alert and oriented x 3. No cognitive and/or jo3 functional deficits noted. Patient verbalized understanding of disposition instructions. patient administered narcotics - no. The following High Risk Discharge criteria are identified: None. Discharged to home ambulatory. Condition: stable. No special radiology studies were completed. Property sent home with patient. 19:09 Discharge ordered by Provider. cc10 19:28 Patient left the ED. jo3 Signatures: Dispatcher [employer] EDMS Re Garduno, RN RN Zahraa Menard, Reg Reg Malia Mohamud RN RN ck1 Stefanie Matamoros RN RN jo3 Kristy Brian, THERAPY COORDINATOR THERAPY COORDINATOR ct3 Zena Lee, THERAPY COORDINATOR THERAPY COORDINATOR elp ConJaime adams PA-C PATeressaC cc10 Génesis Kochb Corrections: (The following items were deleted from the chart) 19:27 19:26 Reassessment: Pt refused paperwork and VS and left ED . jo3 jo3 Chart Complete MTDD
--- NOTE | 2016-07-04 20:29 | EDDOCDS ---
Physician Documentation [facility] Name: Jas Khan Ii Age: 40 yrs Sex: Male : 1975 Arrival Date: 07/02/2016 Time: 16:22 Bed PR Private MD: Camila Webster Disposition: 07/02/16 19:09 Discharged to Home/Self Care. Impression: Contusion of left front wall of thorax. - Condition is Stable. - Discharge Instructions: Chest Contusion. - Prescriptions for Lidoderm 5 % Topical - apply to affected area 1 application by TOPICAL route as needed; 1 box. - Medication Reconciliation, Local Pharmacy Hours form. - Follow up: Camila Webster; When: Call to arrange an appointment; Reason: Recheck today's complaints, Continuance of care. [facility]; When: Call to arrange an appointment; Reason: Wound/Symptom Recheck, Recheck today's complaints, Worsening of conditions, Continuance of care. - Problem is an ongoing problem. - Symptoms are unchanged. Historical: - Allergies: No known drug Allergies; - Home Meds: 1. BuSpar 10 mg Oral tab 1 tab 2 times per day 2. Coreg 3.125 mg Oral tab 1 tab 2 times per day 3. Coumadin 2 mg Oral tab once daily for has not been taking 4. gabapentin 800 mg Oral tab 1 tab twice a day 5. Lyrica 200 mg Oral 2 times per day out of 6. methadone 5 mg/5 mL Oral soln 40 mg daily 7. nephrovite 1 tab qd 8. omeprazole 20 mg Oral cpDR 1 cap once daily 9. oscal 500mg 1 tab bid 10. Renvela 800 mg oral tab 1 tab 3 times per day 11. Sensipar 30 mg oral tab 1 tab once daily 12. Xanax 2 mg Oral tab 1 tab 4 times per day - PMHx: CAD; Hypertension; Renal Failure with Dialysis; - PSHx: none; - Social history: Smoking status: Patient uses tobacco products, light tobacco smoker. No barriers to communication noted, The patient speaks fluent Luxembourger, Speaks appropriately for age. - Family history: Not pertinent. - : The pt / caregiver states he / she is on anticoagulants: coumadin. Home medication list is obtained from the patient. - Exposure Risk Screening:: None identified. Vital Signs: 02 16:24 BP 102 / 62; Pulse 116; Resp 20; Temp 98.5(O); Pulse Ox 96% ; Weight 61.23 kg / 134.99 elp lbs; Height 5 ft. 5 in. (165.10 cm); Pain 10/10; 19:01 BP 102 / 56; Pulse 108; Resp 18; Temp 97.6(O); Pulse Ox 98% on R/A; Pain 10/10; ct3 16:24 Body Mass Index 22.46 (61.23 kg, 165.10 cm) elp MDM: 17:44 oxyCODONE-acetaminophen 5 mg-325 mg 1 tabs PO once ordered. cc10 17:45 Rib Unilat W/PA Chest Only Ordered. EDMS 17:51 Financial registration complete. [facility] 17:55 [facility] Payment Agreement was scanned into [employer] and attached to record. [facility] 07/03 11:45 T-Sheet-- Draft Copy was scanned into [employer] and attached to record. gb Administered Medications: 07/02 17:50 Drug: oxyCODONE-acetaminophen 1 tabs [oxycodone-acetaminophen 5 mg-325 mg tablet (1 kcs tabs)] Route: PO; 17:50 Follow up: Response: Confirmed pt not driving. kcs Signatures: Dispatcher [employer] EDNJ Zahraa Richards, Reg Reg Stefanie Matamoros RN RN Jaime Rojo, PATeressaC PATeressaC cc10 Génesis Koch Re Castorena RN The chart was reviewed and I authenticate all verbal orders and agree with the evaluation and treatment provided.Attachments: 17:55 [facility] Payment Agreement [facility] 07/03 11:45 T-Sheet-- Draft Copy gb Chart Complete MTDD
--- NOTE | 2016-07-04 20:29 | EDDOCDS ---
Physician Documentation [facility] Name: Jas Khan Ii Age: 40 yrs Sex: Male : 1975 Arrival Date: 07/02/2016 Time: 16:22 Bed PR Private MD: Camila Webster Disposition: 07/02/16 19:09 Discharged to Home/Self Care. Impression: Contusion of left front wall of thorax. - Condition is Stable. - Discharge Instructions: Chest Contusion. - Prescriptions for Lidoderm 5 % Topical - apply to affected area 1 application by TOPICAL route as needed; 1 box. - Medication Reconciliation, Local Pharmacy Hours form. - Follow up: Camila Webster; When: Call to arrange an appointment; Reason: Recheck today's complaints, Continuance of care. [facility]; When: Call to arrange an appointment; Reason: Wound/Symptom Recheck, Recheck today's complaints, Worsening of conditions, Continuance of care. - Problem is an ongoing problem. - Symptoms are unchanged. Historical: - Allergies: No known drug Allergies; - Home Meds: 1. BuSpar 10 mg Oral tab 1 tab 2 times per day 2. Coreg 3.125 mg Oral tab 1 tab 2 times per day 3. Coumadin 2 mg Oral tab once daily for has not been taking 4. gabapentin 800 mg Oral tab 1 tab twice a day 5. Lyrica 200 mg Oral 2 times per day out of 6. methadone 5 mg/5 mL Oral soln 40 mg daily 7. nephrovite 1 tab qd 8. omeprazole 20 mg Oral cpDR 1 cap once daily 9. oscal 500mg 1 tab bid 10. Renvela 800 mg oral tab 1 tab 3 times per day 11. Sensipar 30 mg oral tab 1 tab once daily 12. Xanax 2 mg Oral tab 1 tab 4 times per day - PMHx: CAD; Hypertension; Renal Failure with Dialysis; - PSHx: none; - Social history: Smoking status: Patient uses tobacco products, light tobacco smoker. No barriers to communication noted, The patient speaks fluent Jamaican, Speaks appropriately for age. - Family history: Not pertinent. - : The pt / caregiver states he / she is on anticoagulants: coumadin. Home medication list is obtained from the patient. - Exposure Risk Screening:: None identified. Vital Signs: 02 16:24 BP 102 / 62; Pulse 116; Resp 20; Temp 98.5(O); Pulse Ox 96% ; Weight 61.23 kg / 134.99 elp lbs; Height 5 ft. 5 in. (165.10 cm); Pain 10/10; 19:01 BP 102 / 56; Pulse 108; Resp 18; Temp 97.6(O); Pulse Ox 98% on R/A; Pain 10/10; ct3 16:24 Body Mass Index 22.46 (61.23 kg, 165.10 cm) elp MDM: 17:44 oxyCODONE-acetaminophen 5 mg-325 mg 1 tabs PO once ordered. cc10 17:45 Rib Unilat W/PA Chest Only Ordered. EDMS 17:51 Financial registration complete. [facility] 17:55 [facility] Payment Agreement was scanned into [employer]orus and attached to record. [facility] 07/03 11:45 T-Sheet-- Draft Copy was scanned into [employer]orus and attached to record. gb Administered Medications: 07/02 17:50 Drug: oxyCODONE-acetaminophen 1 tabs [oxycodone-acetaminophen 5 mg-325 mg tablet (1 kcs tabs)] Route: PO; 17:50 Follow up: Response: Confirmed pt not driving. kcs Signatures: Dispatcher [employer] EDMA Zahraa Richards, Reg Reg Stefanie Matamoros RN RN Jaime Rojo, PATeressaC PATeressaC cc10 Génesis Koch Re Castorena RN The chart was reviewed and I authenticate all verbal orders and agree with the evaluation and treatment provided.Attachments: 17:55 [facility] Payment Agreement [facility] 07/03 11:45 T-Sheet-- Draft Copy gb Chart Complete MTDD
== END 2016-07-02 19:28 | disposition home or self-care (01) ==
LOC: M ED 16:22
DX: S20.219A Contusion of unspecified front wall of thorax, initial encounter (principal); W01.190A Fall on same level from slipping, tripping and stumbling with subsequent striking against furniture, initial encounter; Y92.098 Other place in other non-institutional residence as the place of occurrence of the external cause; Y93.89 Activity, other specified; Y99.8 Other external cause status; I25.10 Atherosclerotic heart disease of native coronary artery without angina pectoris; I10 Essential (primary) hypertension; N19 Unspecified kidney failure; Z99.2 Dependence on renal dialysis; Z79.899 Other long term (current) drug therapy; Z79.01 Long term (current) use of anticoagulants; F17.210 Nicotine dependence, cigarettes, uncomplicated; F19.10 Other psychoactive substance abuse, uncomplicated

== ENCOUNTER 2016-07-03 15:25 | Emergency (ER) | payer MEDICARE, MEDICAID ==
[2016-07-03] MEDS ORDERED: diphenhydrAMINE 25 MG CAP As Ordered ONE (16:00)
[2016-07-03] MEDS ORDERED: METOCLOPRAMIDE INJ 10MG/2ML VIAL (J2765) As Ordered ONE (16:00)
[2016-07-03 16:14] LABS: BASO % 0.4 % (0.0-1.0); EOS # 0.4 K/mm3 (0.0-0.50); EOS % 5.4 % (0.0-3.0); LARGE UNSTAINED CELL # 0.2 K/mm3 (0.0-0.4); LARGE UNSTAINED CELL % 3.6 % (0.0-4.0); LYMPH # 1.6 K/mm3 (1.5-4.5); LYMPH % 20.4 % (24.0-44.0); MEAN CORPUSCULAR HEMOGLOBIN 33.8 pg (27.0-33.0); MEAN CORPUSCULAR HGB CONC 32.2 g/dl (32.0-36.5); MEAN CORPUSCULAR VOLUME 104.8 fl (80.0-96.0); MONO # 0.6 K/mm3 (0.0-0.8); MONO % 8.6 % (0.0-5.0); NEUTROPHILS % 61.6 % (36.0-66.0); PLATELET COUNT, AUTOMATED 145 k/mm3 (150-450); RED CELL DISTRIBUTION WIDTH 13.3 % (11.5-14.5); WHITE BLOOD COUNT 6.5 K/mm3 (4.0-10.0)
[2016-07-03 16:21] LABS: INR 1.18
[2016-07-03 16:38] LABS: ALBUMIN 3.3 GM/DL (3.2-5.2); ALBUMIN/GLOBULIN RATIO 0.85 (1.00-1.93); BILIRUBIN,TOTAL 0.5 MG/DL (0.2-1.0); CALCIUM LEVEL 8.4 MG/DL (8.5-10.1); CREATININE FOR GFR 11.8 MG/DL (0.70-1.30); GLOMERULAR FILTRATION RATE 5.1 (>60); TOTAL PROTEIN 7.2 GM/DL (6.4-8.2)
[2016-07-03 16:43] LABS: POTASSIUM SERUM 5.6 MEQ/L (3.5-5.1)
--- NOTE | 2016-07-03 17:04 | REP ---
CT study of the abdomen and pelvis with IV or oral contrast: History: Left upper quadrant pain. Patient has a history of renal failure on dialysis. CT findings: Preliminary digital paint and table edger radiograph demonstrates air and stool in a dilated colon. Dilated small bowel loops are noted as well. The lung bases show a small amount of left pleural fluid and minimal plate-like atelectasis in the left lower lobe. There is a large quantity of formed stool throughout the colon including the rectum and rectosigmoid colon. There is gaseous distension in addition to fecal content within the colon. Moderate gaseous distension of dilated small bowel loops is also seen. No evidence of free intraperitoneal air is noted. The liver and the spleen are normal in size and homogeneous in texture. The gallbladder is unremarkable. No pancreatic lesion is appreciated. There are multiple collateral veins in the anterior abdominal wall subcutaneous space throughout the abdomen and into the chest. The patient's benton kidneys are profoundly atrophic bilaterally without hydronephrosis. Prostate and seminal vesicles are unremarkable. Bladder is largely empty. No focal GI tract lesion is seen. Bone window settings show evidence of osteomalacia consistent with chronic renal disease. No focal bony destructive lesion is seen. A normal appendix is seen. Impression: Constipation pattern with gas and stool distended colon. Dilated small bowel loops also noted diffusely. No other obstructive lesion seen. Osteomalacia consistent with renal osteodystrophy. Profoundly atrophic benton kidneys bilaterally. No evidence of free air. Collateral veins in the anterior abdominal wall. A normal appendix is seen. Signed by Rich Rogel MD 07/03/2016 07:30 P
[2016-07-03] MEDS ORDERED: MAGNESIUM CITRATE 300 ML BTL As Ordered ONE (17:15)
--- NOTE | 2016-07-03 17:26 | EDDOCDS ---
Physician Documentation [facility] Name: Jas Khan Ii Age: 40 yrs Sex: Male : 1975 Arrival Date: 07/03/2016 Time: 15:25 Bed Private MD: Camila Webster P Disposition: 07/03/16 17:10 Discharged to Home/Self Care. Impression: Left upper quadrant abdominal tenderness, Constipation. - Condition is Stable. - Discharge Instructions: End-Stage Kidney Disease, Constipation, Adult, [id number], Abdominal Pain, Adult, [id number]. - Medication Reconciliation, Local Pharmacy Hours form. - Follow up: Camila Webster; When: As soon as possible; Reason: Further diagnostic work-up, Recheck today's complaints, Continuance of care. - Problem is an ongoing problem. - Symptoms are unchanged. Historical: - Allergies: no known allergies; - Home Meds: 1. BuSpar 10 mg Oral tab 1 tab 2 times per day 2. Coreg 3.125 mg Oral tab 1 tab 2 times per day 3. Coumadin 2 mg Oral tab once daily for has not been taking 4. gabapentin 800 mg Oral tab 1 tab twice a day 5. Lyrica 200 mg Oral 2 times per day out of 6. methadone 5 mg/5 mL Oral soln 40 mg daily 7. nephrovite 1 tab qd 8. omeprazole 20 mg Oral cpDR 1 cap once daily 9. oscal 500mg 1 tab bid 10. Renvela 800 mg oral tab 1 tab 3 times per day 11. Sensipar 30 mg oral tab 1 tab once daily 12. Xanax 2 mg Oral tab 1 tab 4 times per day - PMHx: CAD; Hypertension; Renal Failure with Dialysis; - PSHx: CABG; Dialysis Graft Construction, Leg; Dialysis Graft Construction, Arm; - Social history: Smoking status: Patient uses tobacco products, current every day smoker. No barriers to communication noted, The patient speaks fluent Macanese. - Family history: Not pertinent. - : The pt / caregiver states he / she is on anticoagulants: coumadin. Home medication list is obtained from the patient, CRE Secure import data. - Exposure Risk Screening:: None identified. Vital Signs: 07/03 15:27 BP 114 / 75; Pulse 114; Resp 20; Temp 97.3; Pulse Ox 97% ; Weight 61.23 kg / 134.99 lbs elp (R); Height 5 ft. 5 in. (165.10 cm) (R); Pain 10/10; 17:19 BP 133 / 75; Pulse 110; Resp 18; Temp 95.7(T); Pulse Ox 99% on R/A; Pain 6/10; ttb 15:27 Body Mass Index 22.46 (61.23 kg, 165.10 cm) elp MDM: 15:57 Metoclopramide 10 mg IM once ordered. btw 15:57 diphenhydrAMINE 50 mg PO once ordered. btw 15:59 CBC with Diff Ordered. EDMS 15:59 Complete Comphrensive Metabolic Ordered. EDMS 15:59 CT ABD & PELVIS: No Contrast Ordered. EDMS 15:59 PT/INR Ordered. EDMS 16:35 Financial registration complete. zo 16:47 [facility] Payment Agreement was scanned into [employer] and attached to record. jp5 16:47 Undo -Financial registration. jp5 16:47 Financial registration complete. jp5 16:48 CBC with Diff Reviewed. btw 16:48 Complete Comphrensive Metabolic Reviewed. btw 16:48 PT/INR Reviewed. btw 17:10 Magnesium Citrate Liquid 300 ml PO once; Dispense home with pt. ordered. btw 17:10 CT ABD & PELVIS: No Contrast Reviewed. btw Administered Medications: 16:05 Drug: Metoclopramide 10 mg [metoclopramide 5 mg/mL injection solution (2 mL)] Route: ttb IM; Site: left gluteus; 16:05 Drug: diphenhydrAMINE 50 mg [diphenhydramine 25 mg capsule (2 caps)] Route: PO; ttb 17:19 Drug: Magnesium Citrate 300 ml [magnesium citrate oral solution (300 mL)] Route: PO; ttb 17:19 Follow up: Response: Med's dispensed home ttb Signatures: Dispatcher [employer] EDAntonio Calle Brandon, PA PA btw Conner, Teresa, RN RN ttb Lesli Fuller RN RN [id number] Tony Boudreaux jp5 The chart was reviewed and I authenticate all verbal orders and agree with the evaluation and treatment provided.Attachments: 16:47 [facility] Payment Agreement jp5 MTDD
--- NOTE | 2016-07-03 17:26 | EDDOCDS ---
Nurse's Notes [facility] Name: Jas Khan Ii Age: 40 yrs Sex: Male : 1975 Arrival Date: 07/03/2016 Time: 15:25 Bed PR Private MD: Camila Webster P Diagnosis: Left upper quadrant abdominal tenderness;Constipation Presentation: 07/03 15:28 Presenting complaint: Patient states: that he is having severe pains to his LUQ. Pt ms18 states the pain started yesterday and that he fell unto that side approx 1 week ago. Risk factors: the patient reports not having a history of previous torsion. Adult Sepsis Screening: The patient does not have new or worsening altered mentation. Patient's respiratory rate is less than 22. Systolic blood pressure is greater than 100. Patient has a qSOFA score of 0- Negative Sepsis Screen. Suicide/Homicide risk assessment- the patient denies having any suicidal and/or homicidal ideations and does not present with any other emotional, behavioral or mental health complaints. Status: Patient is not a check services clerk or dependent. Transition of care: patient was not received from another setting of care. 15:28 Acuity: BRAULIO Level 3 ms18 15:28 Method Of Arrival: Walkin/Carried/Asstd ms18 Triage Assessment: 15:31 General: Appears in no apparent distress, uncomfortable, Behavior is appropriate for ms18 age, cooperative. Pain: Location: left upper quadrant Pain currently is 9 out of 10 on a pain scale. HIV screening NA for this visit Offered previously. Neurological: No deficits noted. Respiratory: Airway is patent Respiratory effort is even, unlabored. GI: Abdomen is non- distended Denies diarrhea, nausea, vomiting. Derm: Skin is pink, warm & dry. Historical: - Allergies: no known allergies; - Home Meds: 1. BuSpar 10 mg Oral tab 1 tab 2 times per day 2. Coreg 3.125 mg Oral tab 1 tab 2 times per day 3. Coumadin 2 mg Oral tab once daily for has not been taking 4. gabapentin 800 mg Oral tab 1 tab twice a day 5. Lyrica 200 mg Oral 2 times per day out of 6. methadone 5 mg/5 mL Oral soln 40 mg daily 7. nephrovite 1 tab qd 8. omeprazole 20 mg Oral cpDR 1 cap once daily 9. oscal 500mg 1 tab bid 10. Renvela 800 mg oral tab 1 tab 3 times per day 11. Sensipar 30 mg oral tab 1 tab once daily 12. Xanax 2 mg Oral tab 1 tab 4 times per day - PMHx: CAD; Hypertension; Renal Failure with Dialysis; - PSHx: CABG; Dialysis Graft Construction, Leg; Dialysis Graft Construction, Arm; - Social history: Smoking status: Patient uses tobacco products, current every day smoker. No barriers to communication noted, The patient speaks fluent Turkmen. - Family history: Not pertinent. - : The pt / caregiver states he / she is on anticoagulants: coumadin. Home medication list is obtained from the patient, [employer] import data. - Exposure Risk Screening:: None identified. Screenin:05 Screening information is obtained from the patient. Fall risk: No risks identified. ttb Assistance ADL's: requires no assistance with activities of daily living. Abuse/DV Screen: The patient / caregiver reports he/she is: not in a situation that causes fear, pain or injury. Nutritional screening: No deficits noted. Advance Directives: Currently, there is no health care proxy. home support is adequate. Assessment: 16:05 General: Appears uncomfortable, Behavior is anxious, appropriate for age, restless. ttb Neurological: Level of Consciousness is awake, alert. Cardiovascular: Chest pain is denied. Respiratory: No deficits noted. Airway is patent Respiratory effort is even, unlabored, Denies cough, shortness of breath. GI: Abdomen is flat, Reports constipation, lower abdominal pain, upper abd pain. Derm: Skin is normal, dusky. Injury Description: No known injury. 16:07 General: meds given per orders.. ttb 16:30 Reassessment: pt requests food d/t abd pain : aware NPO until CT resulted.. ttb 17:19 Reassessment: pain slightly improved. Pt ready for DC. . ttb 17:20 General: MEDICAID CAB REQUESTED AND SECURED PER REQUEST. ttb Vital Signs: 15:27 BP 114 / 75; Pulse 114; Resp 20; Temp 97.3; Pulse Ox 97% ; Weight 61.23 kg (R); Height elp 5 ft. 5 in. (165.10 cm) (R); Pain 10/10; 17:19 BP 133 / 75; Pulse 110; Resp 18; Temp 95.7(T); Pulse Ox 99% on R/A; Pain 6/10; ttb 15:27 Body Mass Index 22.46 (61.23 kg, 165.10 cm) elp Vitals: 15:27 Log In Time: July 03, 2016 at 15:25. elp ED Course: 15:26 Patient visited by Zena Lee PCA. elp 15:26 Patient moved to Waiting elp 15:27 Camila Webster is Private Physician. elp 15:28 Patient visited by Zena Lee PCA. elp 15:28 Patient moved to Pre RCE elp 15:30 Triage Initiated ms18 15:33 Patient moved to Triage 2 ms18 15:38 [facility]. btw 15:38 Kd Carrillo MD is Attending Physician. btw 15:38 Patient visited by Carlos Bravo PA. btw 16:04 Patient moved to TR1 jb5 16:04 PT/INR Sent. jb5 16:04 Complete Comphrensive Metabolic Sent. jb5 16:04 CBC with Diff Sent. jb5 16:05 The patient / caregiver is instructed regarding the plan of care and ED course. Patient ttb has correct armband on for positive identification. 16:05 Labs drawn. (by ED staff). ttb 16:07 Patient visited by Lesli Fuller RN. ms18 16:07 Patient visited by Heather Jacobs, HARLAN. ttb 16:38 Patient visited by Heather Jacobs, HARLAN. ttb 16:38 Patient visited by Heather Jacobs, HARLAN. ttb 16:47 [facility] Payment Agreement was scanned into [employer] and attached to record. jp5 17:09 Camila Webster is Referral Physician. btw 17:10 CT ABD & PELVIS: No Contrast Returned. EDMS 17:11 Patient moved to PR1 / 25 ttb 17:19 No IV's were initiated during this patient's visit. No procedures done that require ttb assistance. Administered Medications: 16:05 Drug: Metoclopramide 10 mg [metoclopramide 5 mg/mL injection solution (2 mL)] Route: ttb IM; Site: left gluteus; 16:05 Drug: diphenhydrAMINE 50 mg [diphenhydramine 25 mg capsule (2 caps)] Route: PO; ttb 17:19 Drug: Magnesium Citrate 300 ml [magnesium citrate oral solution (300 mL)] Route: PO; ttb 17:19 Follow up: Response: Med's dispensed home ttb Order Results: Lab Order: CBC with Diff; SPEC'M 07/03/16 16:04 Test: WHITE BLOOD COUNT; Value: 6.5; Range: 4.0-10.0; Units: K/mm3; Status: F Test: RED BLOOD COUNT; Value: 4.38; Range: 4.30-6.10; Units: M/mm3; Status: F Test: HEMOGLOBIN; Value: 14.8; Range: 14.0-18.0; Units: g/dl; Status: F Test: HEMATOCRIT; Value: 46.0; Range: 42.0-52.0; Units: %; Status: F Test: MEAN CORPUSCULAR VOLUME; Value: 104.8; Range: 80.0-96.0; Abnormal: Above high normal; Units: fl; Status: F Test: MEAN CORPUSCULAR HEMOGLOBIN; Value: 33.8; Range: 27.0-33.0; Abnormal: Above high normal; Units: pg; Status: F Test: MEAN CORPUSCULAR HGB CONC; Value: 32.2; Range: 32.0-36.5; Units: g/dl; Status: F Test: RED CELL DISTRIBUTION WIDTH; Value: 13.3; Range: 11.5-14.5; Units: %; Status: F Test: PLATELET COUNT, AUTOMATED; Value: 145; Range: 150-450; Abnormal: Below low normal; Units: k/mm3; Status: F Test: NEUTROPHILS %; Value: 61.6; Range: 36.0-66.0; Units: %; Status: F Test: LYMPH %; Value: 20.4; Range: 24.0-44.0; Abnormal: Below low normal; Units: %; Status: F Test: MONO %; Value: 8.6; Range: 0.0-5.0; Abnormal: Above high normal; Units: %; Status: F Test: EOS %; Value: 5.4; Range: 0.0-3.0; Abnormal: Above high normal; Units: %; Status: F Test: BASO %; Value: 0.4; Range: 0.0-1.0; Units: %; Status: F Test: LARGE UNSTAINED CELL %; Value: 3.6; Range: 0.0-4.0; Units: %; Status: F Test: NEUTROPHILS #; Value: 4.0; Range: 1.8-7.7; Units: K/mm3; Status: F Test: LYMPH #; Value: 1.6; Range: 1.5-4.5; Units: K/mm3; Status: F Test: MONO #; Value: 0.6; Range: 0.0-0.8; Units: K/mm3; Status: F Test: EOS #; Value: 0.4; Range: 0.0-0.50; Units: K/mm3; Status: F Test: BASO #; Value: 0.0; Range: 0.0-0.2; Units: K/mm3; Status: F Test: LARGE UNSTAINED CELL #; Value: 0.2; Range: 0.0-0.4; Units: K/mm3; Status: F Lab Order: Complete Comphrensive Metabolic; SPEC'M 07/03/16 16:04 Test: GLUCOSE, FASTING; Value: 98; Range: 70-105; Units: MG/DL; Status: F Test: BLOOD UREA NITROGEN; Value: 77; Range: 7-18; Abnormal: Above high normal; Units: MG/DL; Status: F Test: CREATININE FOR GFR; Value: 11.80; Range: 0.70-1.30; Abnormal: Above high normal; Units: MG/DL; Status: F Test: GLOMERULAR FILTRATION RATE; Value: 5.1; Range: >60; Abnormal: Below low normal; Status: F Test: SODIUM LEVEL; Value: 138; Range: 136-145; Units: MEQ/L; Status: F Test: POTASSIUM SERUM; Value: 5.6; Range: 3.5-5.1; Abnormal: Above high normal; Units: MEQ/L; Status: F Test: CHLORIDE LEVEL; Value: 98; Range: 98-107; Units: MEQ/L; Status: F Test: CARBON DIOXIDE LEVEL; Value: 26; Range: 21-32; Units: MEQ/L; Status: F Test: ANION GAP; Value: 14; Range: 8-16; Units: MEQ/L; Status: F Test: CALCIUM LEVEL; Value: 8.4; Range: 8.5-10.1; Abnormal: Below low normal; Units: MG/DL; Status: F Test: AST/SGOT; Value: 28; Range: 15-37; Units: U/L; Status: F Test: ALT/SGPT; Value: 34; Range: 12-78; Units: U/L; Status: F Test: ALKALINE PHOSPHATASE; Value: 356; Range: 45-117; Abnormal: Above high normal; Units: U/L; Status: F Test: BILIRUBIN,TOTAL; Value: 0.5; Range: 0.2-1.0; Units: MG/DL; Status: F Test: TOTAL PROTEIN; Value: 7.2; Range: 6.4-8.2; Units: GM/DL; Status: F Test: ALBUMIN; Value: 3.3; Range: 3.2-5.2; Units: GM/DL; Status: F Test: ALBUMIN/GLOBULIN RATIO; Value: 0.85; Range: 1.00-1.93; Abnormal: Below low normal; Status: F Test Note: ; Units are mL/min/1.73 m2 Chronic Kidney Disease Staging per NKF: Stage I & II GFR >=60 Normal to Mildly Decreased Stage III GFR 30-59 Moderately Decreased Stage IV GFR 15-29 Severely Decreased Stage V GFR <15 Very Little GFR Left ESRD GFR <15 on [facility]GER [facility] Lab Order: PT/INR; SPEC'M 07/03/16 16:04 Test: PROTHROMBIN TIME; Value: 15.1; Range: 12.3-14.5; Abnormal: Above high normal; Units: SECONDS; Status: F Test: INR; Value: 1.18; Status: F Test Note: ; THERAPUTIC HUMAN INR VALUES INDICATIONS NORMAL RANGES PROPHYLAXIS/TREATMENT OF: VENOUS THROMBOSIS 2.0-3.0 PULMONARY EMBOLISM 2.0-3.0 PREVENTION OF SYSTEMIC EMBOLISM FROM: TISSUE HEART VALVES 2.0-3.0 ACUTE MYOCARDIAL INFARCTION 2.0-3.0 VALVULAR HEART DISEASE 2.0-3.0 ATRIAL FIBRILLATION 2.0-3.0 MECHANICAL VALVES(HIGH RISK) 2.5-3.5 RECURRENT MYOCARDIAL INFARCTION 2.5-3.5 Radiology Order: CT ABD & PELVIS: No Contrast Test: CT ABD & PELVIS: No Contrast REASON FOR EXAMINATION: LUQ pain; CT study of the abdomen and pelvis with IV or oral contrast:; ; History: Left upper quadrant pain. Patient has a history of renal failure on; dialysis.; ; CT findings: Preliminary digital director of program management radiograph demonstrates air and stool in; a dilated colon. Dilated small bowel loops are noted as well. The lung bases; show a small amount of left pleural fluid and minimal plate-like atelectasis in; the left lower lobe.; ; There is a large quantity of formed stool throughout the colon including the; rectum and rectosigmoid colon. There is gaseous distension in addition to fecal; content within the colon. Moderate gaseous distension of dilated small bowel; loops is also seen. No evidence of free intraperitoneal air is noted. The liver; and the spleen are normal in size and homogeneous in texture. The gallbladder is; unremarkable. No pancreatic lesion is appreciated. There are multiple; collateral veins in the anterior abdominal wall subcutaneous space throughout the; abdomen and into the chest. The patient's [place] kidneys are profoundly atrophic; bilaterally without hydronephrosis. Prostate and seminal vesicles are; unremarkable. Bladder is largely empty. No focal GI tract lesion is seen. Bone; window settings show evidence of osteomalacia consistent with chronic renal; disease. No focal bony destructive lesion is seen. A normal appendix is seen.; ; Impression:; ; Constipation pattern with gas and stool distended colon. Dilated small bowel; loops also noted diffusely. No other obstructive lesion seen. Osteomalacia; consistent with renal osteodystrophy. Profoundly atrophic [place] kidneys; bilaterally. No evidence of free air. Collateral veins in the anterior; abdominal wall. A normal appendix is seen.; ; ; ; ; Unreviewed; Outcome: 16:05 CT Study completed. ttb 17:10 Discharge ordered by Provider. btw 17:19 Discharge Assessment: Patient awake, alert and oriented x 3. No cognitive and/or ttb functional deficits noted. Patient verbalized understanding of disposition instructions. Patient awake and alert. patient administered narcotics - no. The following High Risk Discharge criteria are identified: None. Discharged to home ambulatory. Condition: stable Condition: improved. Discharge instructions given to patient, Instructed on discharge instructions, follow up and referral plans. medication usage, diet, Demonstrated understanding of instructions, medications, Pt was receptive of discharge instructions/ teaching. Property :Personal belongings accompany Pt. 17:25 Patient left the ED. ttb Signatures: Dispatcher [employer] EDMS Ni Santiago, BRIAR SHOP SUPERVISOR BRIAR SHOP SUPERVISOR jb5 Carlos Bravo PA PA btw Conner, Teresa, RN RN ttb Zena Lee, BRIAR SHOP SUPERVISOR BRIAR SHOP SUPERVISOR Lesli GamezRN RN ms18 Tony Boudreaux jp5 MTDD
--- NOTE | 2016-07-05 18:26 | EDDOCDS ---
Physician Documentation [facility] Name: Jas Khan Ii Age: 40 yrs Sex: Male : 1975 Arrival Date: 07/03/2016 Time: 15:25 Bed Private MD: Camila Webster P Disposition: 07/03/16 17:10 Discharged to Home/Self Care. Impression: Left upper quadrant abdominal tenderness, Constipation. - Condition is Stable. - Discharge Instructions: End-Stage Kidney Disease, Constipation, Adult, [id number], Abdominal Pain, Adult, [id number]. - Medication Reconciliation, Local Pharmacy Hours form. - Follow up: Camila Webster; When: As soon as possible; Reason: Further diagnostic work-up, Recheck today's complaints, Continuance of care. - Problem is an ongoing problem. - Symptoms are unchanged. Historical: - Allergies: no known allergies; - Home Meds: 1. BuSpar 10 mg Oral tab 1 tab 2 times per day 2. Coreg 3.125 mg Oral tab 1 tab 2 times per day 3. Coumadin 2 mg Oral tab once daily for has not been taking 4. gabapentin 800 mg Oral tab 1 tab twice a day 5. Lyrica 200 mg Oral 2 times per day out of 6. methadone 5 mg/5 mL Oral soln 40 mg daily 7. nephrovite 1 tab qd 8. omeprazole 20 mg Oral cpDR 1 cap once daily 9. oscal 500mg 1 tab bid 10. Renvela 800 mg oral tab 1 tab 3 times per day 11. Sensipar 30 mg oral tab 1 tab once daily 12. Xanax 2 mg Oral tab 1 tab 4 times per day - PMHx: CAD; Hypertension; Renal Failure with Dialysis; - PSHx: CABG; Dialysis Graft Construction, Leg; Dialysis Graft Construction, Arm; - Social history: Smoking status: Patient uses tobacco products, current every day smoker. No barriers to communication noted, The patient speaks fluent Cymraes. - Family history: Not pertinent. - : The pt / caregiver states he / she is on anticoagulants: coumadin. Home medication list is obtained from the patient, [employer] import data. - Exposure Risk Screening:: None identified. Vital Signs: 07/03 15:27 BP 114 / 75; Pulse 114; Resp 20; Temp 97.3; Pulse Ox 97% ; Weight 61.23 kg / 134.99 lbs elp (R); Height 5 ft. 5 in. (165.10 cm) (R); Pain 10/10; 17:19 BP 133 / 75; Pulse 110; Resp 18; Temp 95.7(T); Pulse Ox 99% on R/A; Pain 6/10; ttb 15:27 Body Mass Index 22.46 (61.23 kg, 165.10 cm) elp MDM: 15:57 Metoclopramide 10 mg IM once ordered. btw 15:57 diphenhydrAMINE 50 mg PO once ordered. btw 15:59 CBC with Diff Ordered. EDMS 15:59 Complete Comphrensive Metabolic Ordered. EDMS 15:59 CT ABD & PELVIS: No Contrast Ordered. EDMS 15:59 PT/INR Ordered. EDMS 16:35 Financial registration complete. zo 16:47 [id number] Payment Agreement was scanned into [employer] and attached to record. jp5 16:47 Un[facility] -Financial registration. jp5 16:47 Financial registration complete. jp5 16:48 CBC with Diff Reviewed. btw 16:48 Complete Comphrensive Metabolic Reviewed. btw 16:48 PT/INR Reviewed. btw 17:10 Magnesium Citrate Liquid 300 ml PO once; Dispense home with pt. ordered. btw 17:10 CT ABD & PELVIS: No Contrast Reviewed. btw 0204 10:12 T-Sheet-- Draft Copy was scanned into [employer] and attached to record. mm15 Administered Medications: 07/03 16:05 Drug: Metoclopramide 10 mg [metoclopramide 5 mg/mL injection solution (2 mL)] Route: ttb IM; Site: left gluteus; 16:05 Drug: diphenhydrAMINE 50 mg [diphenhydramine 25 mg capsule (2 caps)] Route: PO; ttb 17:19 Drug: Magnesium Citrate 300 ml [magnesium citrate oral solution (300 mL)] Route: PO; ttb 17:19 Follow up: Response: Med's dispensed home ttb Signatures: Dispatcher [employer] [employer] EDMS Antonio Vick Brandon, PA PA btw Heather Jacobs RN RN ttb Gabi Altman mm15 Lesli Fuller RN RN ms18 Tony Boudreaux jp5 The chart was reviewed and I authenticate all verbal orders and agree with the evaluation and treatment provided.Attachments: 16:47 [facility] Payment Agreement jp5 07/04 10:12 T-Sheet-- Draft Copy mm15 Chart Complete MTDD
--- NOTE | 2016-07-05 18:26 | EDDOCDS ---
Nurse's Notes [facility] Name: Jas Khan Ii Age: 40 yrs Sex: Male : 1975 Arrival Date: 07/03/2016 Time: 15:25 Bed PR Private MD: Camila Webster P Diagnosis: Left upper quadrant abdominal tenderness;Constipation Presentation: 07/03 15:28 Presenting complaint: Patient states: that he is having severe pains to his LUQ. Pt ms18 states the pain started yesterday and that he fell unto that side approx 1 week ago. Risk factors: the patient reports not having a history of previous torsion. Adult Sepsis Screening: The patient does not have new or worsening altered mentation. Patient's respiratory rate is less than 22. Systolic blood pressure is greater than 100. Patient has a qSOFA score of 0- Negative Sepsis Screen. Suicide/Homicide risk assessment- the patient denies having any suicidal and/or homicidal ideations and does not present with any other emotional, behavioral or mental health complaints. Status: Patient is not a food service agent or dependent. Transition of care: patient was not received from another setting of care. 15:28 Acuity: BRAULIO Level 3 ms18 15:28 Method Of Arrival: Walkin/Carried/Asstd ms18 Triage Assessment: 15:31 General: Appears in no apparent distress, uncomfortable, Behavior is appropriate for ms18 age, cooperative. Pain: Location: left upper quadrant Pain currently is 9 out of 10 on a pain scale. HIV screening NA for this visit Offered previously. Neurological: No deficits noted. Respiratory: Airway is patent Respiratory effort is even, unlabored. GI: Abdomen is non- distended Denies diarrhea, nausea, vomiting. Derm: Skin is pink, warm & dry. Historical: - Allergies: no known allergies; - Home Meds: 1. BuSpar 10 mg Oral tab 1 tab 2 times per day 2. Coreg 3.125 mg Oral tab 1 tab 2 times per day 3. Coumadin 2 mg Oral tab once daily for has not been taking 4. gabapentin 800 mg Oral tab 1 tab twice a day 5. Lyrica 200 mg Oral 2 times per day out of 6. methadone 5 mg/5 mL Oral soln 40 mg daily 7. nephrovite 1 tab qd 8. omeprazole 20 mg Oral cpDR 1 cap once daily 9. oscal 500mg 1 tab bid 10. Renvela 800 mg oral tab 1 tab 3 times per day 11. Sensipar 30 mg oral tab 1 tab once daily 12. Xanax 2 mg Oral tab 1 tab 4 times per day - PMHx: CAD; Hypertension; Renal Failure with Dialysis; - PSHx: CABG; Dialysis Graft Construction, Leg; Dialysis Graft Construction, Arm; - Social history: Smoking status: Patient uses tobacco products, current every day smoker. No barriers to communication noted, The patient speaks fluent Bulgarian. - Family history: Not pertinent. - : The pt / caregiver states he / she is on anticoagulants: coumadin. Home medication list is obtained from the patient, [employer] import data. - Exposure Risk Screening:: None identified. Screenin:05 Screening information is obtained from the patient. Fall risk: No risks identified. ttb Assistance ADL's: requires no assistance with activities of daily living. Abuse/DV Screen: The patient / caregiver reports he/she is: not in a situation that causes fear, pain or injury. Nutritional screening: No deficits noted. Advance Directives: Currently, there is no health care proxy. home support is adequate. Assessment: 16:05 General: Appears uncomfortable, Behavior is anxious, appropriate for age, restless. ttb Neurological: Level of Consciousness is awake, alert. Cardiovascular: Chest pain is denied. Respiratory: No deficits noted. Airway is patent Respiratory effort is even, unlabored, Denies cough, shortness of breath. GI: Abdomen is flat, Reports constipation, lower abdominal pain, upper abd pain. Derm: Skin is normal, dusky. Injury Description: No known injury. 16:07 General: meds given per orders.. ttb 16:30 Reassessment: pt requests food d/t abd pain : aware NPO until CT resulted.. ttb 17:19 Reassessment: pain slightly improved. Pt ready for DC. . ttb 17:20 General: MEDICAID CAB REQUESTED AND SECURED PER REQUEST. ttb Vital Signs: 15:27 BP 114 / 75; Pulse 114; Resp 20; Temp 97.3; Pulse Ox 97% ; Weight 61.23 kg (R); Height elp 5 ft. 5 in. (165.10 cm) (R); Pain 10/10; 17:19 BP 133 / 75; Pulse 110; Resp 18; Temp 95.7(T); Pulse Ox 99% on R/A; Pain 6/10; ttb 15:27 Body Mass Index 22.46 (61.23 kg, 165.10 cm) elp Vitals: 15:27 Log In Time: July 03, 2016 at 15:25. elp ED Course: 15:26 Patient visited by Zena Lee PCA. elp 15:26 Patient moved to Waiting elp 15:27 Camila Webster is Private Physician. elp 15:28 Patient visited by Zena Lee PCA. elp 15:28 Patient moved to Pre RCE elp 15:30 Triage Initiated ms18 15:33 Patient moved to Triage 2 ms18 15:38 [facility] btw 15:38 Kd Carrillo MD is Attending Physician. btw 15:38 Patient visited by Carlos Bravo PA. btw 16:04 Patient moved to TR1 jb5 16:04 PT/INR Sent. jb5 16:04 Complete Comphrensive Metabolic Sent. jb5 16:04 CBC with Diff Sent. jb5 16:05 The patient / caregiver is instructed regarding the plan of care and ED course. Patient ttb has correct armband on for positive identification. 16:05 Labs drawn. (by ED staff). ttb 16:07 Patient visited by Lesli Fuller RN. ms18 16:07 Patient visited by Heather Jacobs, HARLAN. ttb 16:38 Patient visited by Heather Jacobs, HARLAN. ttb 16:38 Patient visited by Heather Jacobs, HARLAN. ttb 16:47 [facility] Payment Agreement was scanned into [employer] and attached to record. jp5 17:09 Camila Webster is Referral Physician. btw 17:10 CT ABD & PELVIS: No Contrast Returned. EDMS 17:11 Patient moved to PR ttb 17:19 No IV's were initiated during this patient's visit. No procedures done that require ttb assistance. 19:40 CT ABD & PELVIS: No Contrast Returned. EDMS 02 10:12 T-Sheet-- Draft Copy was scanned into [employer] and attached to record. mm15 Administered Medications: 07/03 16:05 Drug: Metoclopramide 10 mg [metoclopramide 5 mg/mL injection solution (2 mL)] Route: ttb IM; Site: left gluteus; 16:05 Drug: diphenhydrAMINE 50 mg [diphenhydramine 25 mg capsule (2 caps)] Route: PO; ttb 17:19 Drug: Magnesium Citrate 300 ml [magnesium citrate oral solution (300 mL)] Route: PO; ttb 17:19 Follow up: Response: Med's dispensed home ttb Order Results: Lab Order: CBC with Diff; SPEC'M 07/03/16 16:04 Test: WHITE BLOOD COUNT; Value: 6.5; Range: 4.0-10.0; Units: K/mm3; Status: F Test: RED BLOOD COUNT; Value: 4.38; Range: 4.30-6.10; Units: M/mm3; Status: F Test: HEMOGLOBIN; Value: 14.8; Range: 14.0-18.0; Units: g/dl; Status: F Test: HEMATOCRIT; Value: 46.0; Range: 42.0-52.0; Units: %; Status: F Test: MEAN CORPUSCULAR VOLUME; Value: 104.8; Range: 80.0-96.0; Abnormal: Above high normal; Units: fl; Status: F Test: MEAN CORPUSCULAR HEMOGLOBIN; Value: 33.8; Range: 27.0-33.0; Abnormal: Above high normal; Units: pg; Status: F Test: MEAN CORPUSCULAR HGB CONC; Value: 32.2; Range: 32.0-36.5; Units: g/dl; Status: F Test: RED CELL DISTRIBUTION WIDTH; Value: 13.3; Range: 11.5-14.5; Units: %; Status: F Test: PLATELET COUNT, AUTOMATED; Value: 145; Range: 150-450; Abnormal: Below low normal; Units: k/mm3; Status: F Test: NEUTROPHILS %; Value: 61.6; Range: 36.0-66.0; Units: %; Status: F Test: LYMPH %; Value: 20.4; Range: 24.0-44.0; Abnormal: Below low normal; Units: %; Status: F Test: MONO %; Value: 8.6; Range: 0.0-5.0; Abnormal: Above high normal; Units: %; Status: F Test: EOS %; Value: 5.4; Range: 0.0-3.0; Abnormal: Above high normal; Units: %; Status: F Test: BASO %; Value: 0.4; Range: 0.0-1.0; Units: %; Status: F Test: LARGE UNSTAINED CELL %; Value: 3.6; Range: 0.0-4.0; Units: %; Status: F Test: NEUTROPHILS #; Value: 4.0; Range: 1.8-7.7; Units: K/mm3; Status: F Test: LYMPH #; Value: 1.6; Range: 1.5-4.5; Units: K/mm3; Status: F Test: MONO #; Value: 0.6; Range: 0.0-0.8; Units: K/mm3; Status: F Test: EOS #; Value: 0.4; Range: 0.0-0.50; Units: K/mm3; Status: F Test: BASO #; Value: 0.0; Range: 0.0-0.2; Units: K/mm3; Status: F Test: LARGE UNSTAINED CELL #; Value: 0.2; Range: 0.0-0.4; Units: K/mm3; Status: F Lab Order: Complete Comphrensive Metabolic; SPEC'M 07/03/16 16:04 Test: GLUCOSE, FASTING; Value: 98; Range: 70-105; Units: MG/DL; Status: F Test: BLOOD UREA NITROGEN; Value: 77; Range: 7-18; Abnormal: Above high normal; Units: MG/DL; Status: F Test: CREATININE FOR GFR; Value: 11.80; Range: 0.70-1.30; Abnormal: Above high normal; Units: MG/DL; Status: F Test: GLOMERULAR FILTRATION RATE; Value: 5.1; Range: >60; Abnormal: Below low normal; Status: F Test: SODIUM LEVEL; Value: 138; Range: 136-145; Units: MEQ/L; Status: F Test: POTASSIUM SERUM; Value: 5.6; Range: 3.5-5.1; Abnormal: Above high normal; Units: MEQ/L; Status: F Test: CHLORIDE LEVEL; Value: 98; Range: 98-107; Units: MEQ/L; Status: F Test: CARBON DIOXIDE LEVEL; Value: 26; Range: 21-32; Units: MEQ/L; Status: F Test: ANION GAP; Value: 14; Range: 8-16; Units: MEQ/L; Status: F Test: CALCIUM LEVEL; Value: 8.4; Range: 8.5-10.1; Abnormal: Below low normal; Units: MG/DL; Status: F Test: AST/SGOT; Value: 28; Range: 15-37; Units: U/L; Status: F Test: ALT/SGPT; Value: 34; Range: 12-78; Units: U/L; Status: F Test: ALKALINE PHOSPHATASE; Value: 356; Range: 45-117; Abnormal: Above high normal; Units: U/L; Status: F Test: BILIRUBIN,TOTAL; Value: 0.5; Range: 0.2-1.0; Units: MG/DL; Status: F Test: TOTAL PROTEIN; Value: 7.2; Range: 6.4-8.2; Units: GM/DL; Status: F Test: ALBUMIN; Value: 3.3; Range: 3.2-5.2; Units: GM/DL; Status: F Test: ALBUMIN/GLOBULIN RATIO; Value: 0.85; Range: 1.00-1.93; Abnormal: Below low normal; Status: F Test Note: ; Units are mL/min/1.73 m2 Chronic Kidney Disease Staging per NKF: Stage I & II GFR >=60 Normal to Mildly Decreased Stage III GFR 30-59 Moderately Decreased Stage IV GFR 15-29 Severely Decreased Stage V GFR <15 Very Little GFR Left ESRD GFR <15 on MANAGER HI Lab Order: PT/INR; SPEC'M 07/03/16 16:04 Test: PROTHROMBIN TIME; Value: 15.1; Range: 12.3-14.5; Abnormal: Above high normal; Units: SECONDS; Status: F Test: INR; Value: 1.18; Status: F Test Note: ; THERAPUTIC HUMAN INR VALUES INDICATIONS NORMAL RANGES PROPHYLAXIS/TREATMENT OF: VENOUS THROMBOSIS 2.0-3.0 PULMONARY EMBOLISM 2.0-3.0 PREVENTION OF SYSTEMIC EMBOLISM FROM: TISSUE HEART VALVES 2.0-3.0 ACUTE MYOCARDIAL INFARCTION 2.0-3.0 VALVULAR HEART DISEASE 2.0-3.0 ATRIAL FIBRILLATION 2.0-3.0 MECHANICAL VALVES(HIGH RISK) 2.5-3.5 RECURRENT MYOCARDIAL INFARCTION 2.5-3.5 Radiology Order: CT ABD & PELVIS: No Contrast Test: CT ABD & PELVIS: No Contrast REASON FOR EXAMINATION: LUQ pain; CT study of the abdomen and pelvis with IV or oral contrast:; ; History: Left upper quadrant pain. Patient has a history of renal failure on; dialysis.; ; CT findings: Preliminary digital shale planer operator helper radiograph demonstrates air and stool in; a dilated colon. Dilated small bowel loops are noted as well. The lung bases; show a small amount of left pleural fluid and minimal plate-like atelectasis in; the left lower lobe.; ; There is a large quantity of formed stool throughout the colon including the; rectum and rectosigmoid colon. There is gaseous distension in addition to fecal; content within the colon. Moderate gaseous distension of dilated small bowel; loops is also seen. No evidence of free intraperitoneal air is noted. The liver; and the spleen are normal in size and homogeneous in texture. The gallbladder is; unremarkable. No pancreatic lesion is appreciated. There are multiple; collateral veins in the anterior abdominal wall subcutaneous space throughout the; abdomen and into the chest. The patient's [place] kidneys are profoundly atrophic; bilaterally without hydronephrosis. Prostate and seminal vesicles are; unremarkable. Bladder is largely empty. No focal GI tract lesion is seen. Bone; window settings show evidence of osteomalacia consistent with chronic renal; disease. No focal bony destructive lesion is seen. A normal appendix is seen.; ; Impression:; ; Constipation pattern with gas and stool distended colon. Dilated small bowel; loops also noted diffusely. No other obstructive lesion seen. Osteomalacia; consistent with renal osteodystrophy. Profoundly atrophic [place] kidneys; bilaterally. No evidence of free air. Collateral veins in the anterior; abdominal wall. A normal appendix is seen.; ; ; Signed by; Rich Rogel MD 07/03/2016 07:30 P; Outcome: 16:05 CT Study completed. ttb 17:10 Discharge ordered by Provider. btw 17:19 Discharge Assessment: Patient awake, alert and oriented x 3. No cognitive and/or ttb functional deficits noted. Patient verbalized understanding of disposition instructions. Patient awake and alert. patient administered narcotics - no. The following High Risk Discharge criteria are identified: None. Discharged to home ambulatory. Condition: stable Condition: improved. Discharge instructions given to patient, Instructed on discharge instructions, follow up and referral plans. medication usage, diet, Demonstrated understanding of instructions, medications, Pt was receptive of discharge instructions/ teaching. Property :Personal belongings accompany Pt. 17:25 Patient left the ED. ttb Signatures: Dispatcher [employer] EDMS Ni Santiago, GIS INSTRUCTOR GIS INSTRUCTOR jb5 Carlos Bravo PA PA btw Conner, Teresa, RN RN ttb Gabi Altman mm15 Zena Lee, GIS INSTRUCTOR GIS INSTRUCTOR Lesli Gamez RN RN ms18 Tony Boudreaux jp5 Chart Complete MTDD
--- NOTE | 2016-07-05 18:26 | EDDOCDS ---
Physician Documentation [facility] Name: Jas Khan Ii Age: 40 yrs Sex: Male : 1975 Arrival Date: 07/03/2016 Time: 15:25 Bed Private MD: Camila Webster P Disposition: 07/03/16 17:10 Discharged to Home/Self Care. Impression: Left upper quadrant abdominal tenderness, Constipation. - Condition is Stable. - Discharge Instructions: End-Stage Kidney Disease, Constipation, Adult, [id number], Abdominal Pain, Adult, [id number]. - Medication Reconciliation, Local Pharmacy Hours form. - Follow up: Camila Webster; When: As soon as possible; Reason: Further diagnostic work-up, Recheck today's complaints, Continuance of care. - Problem is an ongoing problem. - Symptoms are unchanged. Historical: - Allergies: no known allergies; - Home Meds: 1. BuSpar 10 mg Oral tab 1 tab 2 times per day 2. Coreg 3.125 mg Oral tab 1 tab 2 times per day 3. Coumadin 2 mg Oral tab once daily for has not been taking 4. gabapentin 800 mg Oral tab 1 tab twice a day 5. Lyrica 200 mg Oral 2 times per day out of 6. methadone 5 mg/5 mL Oral soln 40 mg daily 7. nephrovite 1 tab qd 8. omeprazole 20 mg Oral cpDR 1 cap once daily 9. oscal 500mg 1 tab bid 10. Renvela 800 mg oral tab 1 tab 3 times per day 11. Sensipar 30 mg oral tab 1 tab once daily 12. Xanax 2 mg Oral tab 1 tab 4 times per day - PMHx: CAD; Hypertension; Renal Failure with Dialysis; - PSHx: CABG; Dialysis Graft Construction, Leg; Dialysis Graft Construction, Arm; - Social history: Smoking status: Patient uses tobacco products, current every day smoker. No barriers to communication noted, The patient speaks fluent Macanese. - Family history: Not pertinent. - : The pt / caregiver states he / she is on anticoagulants: coumadin. Home medication list is obtained from the patient, [facility] import data. - Exposure Risk Screening:: None identified. Vital Signs: 07/03 15:27 BP 114 / 75; Pulse 114; Resp 20; Temp 97.3; Pulse Ox 97% ; Weight 61.23 kg / 134.99 lbs elp (R); Height 5 ft. 5 in. (165.10 cm) (R); Pain 10/10; 17:19 BP 133 / 75; Pulse 110; Resp 18; Temp 95.7(T); Pulse Ox 99% on R/A; Pain 6/10; ttb 15:27 Body Mass Index 22.46 (61.23 kg, 165.10 cm) elp MDM: 15:57 Metoclopramide 10 mg IM once ordered. btw 15:57 diphenhydrAMINE 50 mg PO once ordered. btw 15:59 CBC with Diff Ordered. EDMS 15:59 Complete Comphrensive Metabolic Ordered. EDMS 15:59 CT ABD & PELVIS: No Contrast Ordered. EDMS 15:59 PT/INR Ordered. EDMS 16:35 Financial registration complete. zo 16:47 [facility] Payment Agreement was scanned into [employer] and attached to record. jp5 16:47 Undo -Financial registration. jp5 16:47 Financial registration complete. jp5 16:48 CBC with Diff Reviewed. btw 16:48 Complete Comphrensive Metabolic Reviewed. btw 16:48 PT/INR Reviewed. btw 17:10 Magnesium Citrate Liquid 300 ml PO once; Dispense home with pt. ordered. btw 17:10 CT ABD & PELVIS: No Contrast Reviewed. btw 0204 10:12 T-Sheet-- Draft Copy was scanned into [employer] and attached to record. mm15 Administered Medications: 07/03 16:05 Drug: Metoclopramide 10 mg [metoclopramide 5 mg/mL injection solution (2 mL)] Route: ttb IM; Site: left gluteus; 16:05 Drug: diphenhydrAMINE 50 mg [diphenhydramine 25 mg capsule (2 caps)] Route: PO; ttb 17:19 Drug: Magnesium Citrate 300 ml [magnesium citrate oral solution (300 mL)] Route: PO; ttb 17:19 Follow up: Response: Med's dispensed home ttb Signatures: Dispatcher [employer] EDMS Antonio Vick Brandon, PA PA btw Heather Jacobs RN RN ttb Gabi Altman mm15 Lesli Fuller RN RN [id number] Tony Boudreaux jp5 The chart was reviewed and I authenticate all verbal orders and agree with the evaluation and treatment provided.Attachments: 16:47 [facility] Payment Agreement jp5 07/04 10:12 T-Sheet-- Draft Copy mm15 Chart Complete MTDD
== END 2016-07-03 17:25 | disposition home or self-care (01) ==
LOC: M ED 15:25
DX: K59.00 Constipation, unspecified (principal); I25.10 Atherosclerotic heart disease of native coronary artery without angina pectoris; I12.0 Hypertensive chronic kidney disease with stage 5 chronic kidney disease or end stage renal disease; N18.6 End stage renal disease; Z99.2 Dependence on renal dialysis; F17.210 Nicotine dependence, cigarettes, uncomplicated; Z95.5 Presence of coronary angioplasty implant and graft; Z79.899 Other long term (current) drug therapy
CPT/HCPCS: 36415; 74176; 80053; 85025; 85610; 96372; 99284; J2765

== ENCOUNTER → 2017-05-06 | Outpatient (CLI) | payer OTHER ==
[~2017-05-06] MED LIST changes: +ISOVUE-300 61% 50ML VIAL (Q9967) As Ordered ONE; +MIDAZOLAM INJ 2 MG/2 ML VIAL (J2250) As Ordered ONE; +RENA1TAB PO; -RENA800T7 PO; +fentaNYL 100 MCG/2 ML INJECTION (J3010) As Ordered ONE
--- NOTE | 2017-05-19 13:42 | REPIR ---
DATE OF PROCEDURE: 05/06/2017 PREPROCEDURE DIAGNOSIS: Endstage renal disease. Dysfunctional left superficial femoral artery, superficial femoral vein arteriovenous graft. POSTPROCEDURE DIAGNOSIS: Endstage renal disease. Dysfunctional left superficial femoral artery, superficial femoral vein arteriovenous graft. PROCEDURE: Left superficial femoral artery superficial femoral vein arteriovenous graft fistulogram, retrograde left superficial femoral artery angiogram, left superficial femoral artery angioplasty with 8 x 200 balloon, left le dialysis axis graft angioplasty o8 x 200 balloon. SURGEON: Dr. Andrea Eagle. DWARF TREE GROWER: Sakina Merchant and Cristi Almeida. ANESTHESIA: Local sedation with 2 mg versed, 100 mcg fentanyl, and 1 mL of 2% lidocaine. Sedation time was from 16:10 pm to 16:20 pm with the sedation and cardiopulmonary monitoring performed by the RN in the room under my direct supervision. I was present for and directed the entire case. COMPLICATIONS: None. DRAINS: None. SPECIMENS: None. FLUORO TIME: 2.222 minutes. CONTRAST: 7 mL. INDICATION: The patient is a 41-year-old male with endstage renal disease with dialysis through a left leg superficial femoral artery and superficial femoral vein arteriovenous graft who has had difficulty with excessive bleeding on de-cannulization, difficulty with cannulation of the arteriovenous limb and pulsatility within the graft. The patient will undergo a fistulogram and possible angioplasty and stent. The risks, benefits and alternative treatment options were discussed with the patient. DESCRIPTION OF PROCEDURE: The patient was taken to the angiography suite and placed supine on the angiography table and then prepped and draped in a sterile surgical fashion. The left leg graft was cannulated with a micropuncture needle after anesthetizing the overlying skin with 1% lidocaine. A fistulogram was performed through the micropuncture sheath showing an approximate 80% stenosis of the graft to superficial femoral artery anastomosis. This was angioplastied with an 8 x 200 balloon with a followup fistulogram showing resolution of the stenosis. A retrograde left femoral artery angiogram was performed showing no intervention required. The catheter and wires were removed. The sheath was removed and a #2-0 Prolene suture placed at the puncture site for hemostasis. Dressings were then applied. The patient tolerated the procedure well. All instrument, sponge and needle counts were correct at the end of the case. There were no complications. Dr. Eagle was present for and directed the entire case. The patient was transferred to the holding area and subsequently discharged in stable condition once the #2-0 Prolene suture was removed. RADIOLOGIC SUPERVISION INTERPRETATION: The fistulogram showed stenosis of the graft to femoral vein anastomosis which was angioplastied with an 8 x 200 balloon with good angiographic result on followup fistulogram.
== END | disposition home or self-care (01) ==
LOC: M IRPRO 13:39
PROVIDERS: ATTEND Surgery Vascular Surgery
DX: T82.858A Stenosis of other vascular prosthetic devices, implants and grafts, initial encounter (principal); N18.6 End stage renal disease
CPT/HCPCS: 36902; 99152; C1725; C1769; C1894; J2250; J3010; Q9967

== ENCOUNTER → 2017-08-26 | Outpatient (CLI) | payer OTHER ==
[~2017-08-26] MED LIST changes: -/AUGM875TA; -/NEPHROTA; -ACET65TA; -AMLO10TA; -CARV25TA PO; -CATA0.2T; -CIPRO; -CLON-412 PO; -CLON0.2T; -COLA100C2; -COLA50CA; -CORE12.5; -CORE25TA; -COUM1TAB14 PO; -COUM6TAB PO; -EPOGEN; +ISOVUE-300 61% 50ML VIAL (Q9967) As Ordered; -ISOVUE-300 61% 50ML VIAL (Q9967) As Ordered ONE; -KLON0.5T; -KLON2TAB; -KLON2TAB PO; -LYRI200C; -LYRI200C PO; -LYRI75CA; -METH10TA2; -METH40TA PO; -METH5TAB2; -METHADONE; +MIDAZOLAM INJ 2 MG/2 ML VIAL (J2250) As Ordered; -MIDAZOLAM INJ 2 MG/2 ML VIAL (J2250) As Ordered ONE; -MINOXIDIL; -NEPHROVITE; -No Historical Meds; -PRIL40CA PO; -RENA1TAB PO; -RENA800T; -RENAGEL; -VITATAB11 PO; -XANA3TAB; -[UNRECOGNIZED DRUG - CODE]; -[UNRECOGNIZED DRUG - OTHER]; +fentaNYL 100 MCG/2 ML INJECTION (J3010) As Ordered; -fentaNYL 100 MCG/2 ML INJECTION (J3010) As Ordered ONE; -loratidine; -minoxidil; -sensipar
== END | disposition home or self-care (01) ==
LOC: M IRPRO 14:21
DX: T82.858A Stenosis of other vascular prosthetic devices, implants and grafts, initial encounter (principal); I12.0 Hypertensive chronic kidney disease with stage 5 chronic kidney disease or end stage renal disease; N18.6 End stage renal disease; Z99.2 Dependence on renal dialysis
CPT/HCPCS: 36902

== ENCOUNTER → 2018-01-25 | Outpatient (CLI) | payer OTHER ==
[~2018-01-25] MED LIST changes: +LIDOCAINE 2% MDV 20 ML VIAL As Ordered
== END | disposition home or self-care (01) ==
LOC: M IRPRO 07:29
DX: T82.590A Other mechanical complication of surgically created arteriovenous fistula, initial encounter (principal); N18.6 End stage renal disease; Z99.2 Dependence on renal dialysis
CPT/HCPCS: 36901

== ENCOUNTER 2022-03-13 18:09 | Inpatient (IN) | payer MEDICARE, MEDICAID ==
[~2022-03-13] VITALS: Ht 167.6 cm; Wt 50.4 kg
[~2022-03-13 18:09] MED LIST changes: +/AUGM875TA; +ACET65TA; +AMLO10TA; +CARV25TA PO; +CATA0.2T; +CIPRO; +CLON-412 PO; +CLON0.2T; +COLA100C2; +COLA50CA; +CORE12.5; +CORE25TA; +COUM4TAB8 PO; +COUM6TAB10 PO; +EPOGEN; -ISOVUE-300 61% 50ML VIAL (Q9967) As Ordered; +KLON0.5T; +KLON2TAB; +KLON2TAB PO; -LIDOCAINE 2% MDV 20 ML VIAL As Ordered; +LYRI200C; +LYRI200C PO; +LYRI75CA; +METH10TA2; +METH40TA PO; +METH5TAB2; +METHADONE; -MIDAZOLAM INJ 2 MG/2 ML VIAL (J2250) As Ordered; +MINOXIDIL; +NEPH1TAB8; +NEPHROVITE; +No Historical Meds; +PRIL40CA PO; +RENA1TAB PO; +RENA800T; +RENAGEL; +VITATAB11 PO; +XANA3TAB; +[UNRECOGNIZED DRUG - CODE]; +[UNRECOGNIZED DRUG - OTHER]; -fentaNYL 100 MCG/2 ML INJECTION (J3010) As Ordered; +loratidine; +minoxidil; +sensipar
[2022-03-13] MEDS ORDERED: NICOTINE 21MG/24HR 1 EA TRANSDERMAL TD ONE (20:10)
[2022-03-13 20:57] LABS: BASO # 0.1 10^3/uL (0.0-0.2); BASO % 0.9 % (0.0-1.0); EOS # 0.1 10^3/uL (0.0-0.5); EOS % 2.1 % (0.0-3.0); HEMATOCRIT 37.1 % (42.0-52.0); MEAN CORPUSCULAR HEMOGLOBIN 36.1 pg (27.0-33.0); MEAN CORPUSCULAR HGB CONC 32.3 g/dl (32.0-36.5); MEAN CORPUSCULAR VOLUME 111.7 fl (80.0-96.0); MONO # 0.6 10^3/uL (0.0-0.8); MONO % 11.7 % (2.0-8.0); NEUTROPHILS # 3.5 10^3/uL (1.5-8.5); NEUTROPHILS % 66.1 % (36.0-66.0); PLATELET COUNT, AUTOMATED 163 10^3/uL (150-450); RED BLOOD COUNT 3.32 10^6/uL (4.30-6.10); WHITE BLOOD COUNT 5.3 10^3/uL (4.0-10.0)
[2022-03-13 21:13] LABS: INR 2.34
[2022-03-13] MEDS ORDERED: CLON2TAB7 PO (21:15)
[2022-03-13] MEDS ORDERED: CARV25TA PO (21:15)
[2022-03-13] MEDS ORDERED: METH10SO PO (21:15)
[2022-03-13] MEDS ORDERED: WARF-58 PO (21:15)
[2022-03-13] MEDS ORDERED: RENA1TAB PO (21:15)
[2022-03-13] MEDS ORDERED: CLONI1TA PO (21:15)
[2022-03-13] MEDS ORDERED: MED REC COMMENT (21:19)
[2022-03-13] MEDS ORDERED: HOME MED LIST COMPLETE! XX SCH (21:25)
[2022-03-13 21:29] LABS: RSV AMPLIFICATION NEGATIVE (NEGATIVE)
[2022-03-13 21:34] LABS: CPK CREATINE PHOSPHOKINASE 178 U/L (39-308)
[2022-03-13 21:35] LABS: CALCIUM LEVEL 10.3 MG/DL (8.5-10.1); CREATININE FOR GFR 9.2 MG/DL (0.70-1.30); GLOMERULAR FILTRATION RATE 6.6 (>60); POTASSIUM SERUM 4.4 MEQ/L (3.5-5.1)
[2022-03-14] MEDS ORDERED: ACETAMINOPHEN TAB 650MG DOSE (2X325MG) PO PRN (00:30)
[2022-03-14] MEDS ORDERED: WARFARIN SOD 3MG TAB PO ONE (00:30)
[2022-03-14] MEDS ORDERED: METHADONE 5MG TAB PO ONE (00:30)
[2022-03-14 02:30] VITALS: BP 162/94
[2022-03-14 06:00] VITALS: BP 111/65
[2022-03-14 06:56] LABS: HEMATOCRIT 32.9 % (42.0-52.0); HEMOGLOBIN 10.9 g/dl (13.5-17.5); MEAN CORPUSCULAR HEMOGLOBIN 36.6 pg (27.0-33.0); MEAN CORPUSCULAR HGB CONC 33.1 g/dl (32.0-36.5); MEAN CORPUSCULAR VOLUME 110.4 fl (80.0-96.0); PLATELET COUNT, AUTOMATED 142 10^3/uL (150-450); RED BLOOD COUNT 2.98 10^6/uL (4.30-6.10); WHITE BLOOD COUNT 4.2 10^3/uL (4.0-10.0)
[2022-03-14 07:06] LABS: INR 2.44; PROTHROMBIN TIME 26.9 SECONDS (12.5-14.5)
[2022-03-14 07:36] LABS: CREATININE FOR GFR 9.91 MG/DL (0.70-1.30); GLOMERULAR FILTRATION RATE 6.1 (>60); MAGNESIUM LEVEL 3.3 MG/DL (1.8-2.4); POTASSIUM SERUM 4.7 MEQ/L (3.5-5.1)
[2022-03-14] MEDS ORDERED: INFLUENZA QUADRIVALENT PF VACCINE 0.5ML SYRINGE IM.IMMUN ONE (09:00)
[2022-03-14] MEDS: CARVedilol 12.5 MG TAB PO SCH ×2 (09:57→20:10)
[2022-03-14] MEDS: cloNIDine 0.1MG TABLET PO SCH (09:58)
[2022-03-14] MEDS: clonazePAM 1 MG TAB PO SCH ×2 (09:58→20:10)
[2022-03-14] MEDS ORDERED: SODIUM CHLORIDE 0.9% 1000ML IV PRN (11:00)
[2022-03-14] MEDS ORDERED: LIDOCAINE 1% SDV 5ML VIAL SC PRN (11:00)
[2022-03-14] MEDS ORDERED: METHADONE 10MG TAB PO ONE (12:00)
[2022-03-14] MEDS: (RENVELA) SEVELAMER **CARBONate** 800 MG TAB PO SCH ×2 (12:17→17:04)
[2022-03-14] MEDS ORDERED: WARFARIN SOD 3MG TAB PO SCH (17:00)
[2022-03-14 21:40] VITALS: BP 115/68
[2022-03-15 06:00] VITALS: BP 122/64
[2022-03-15 08:04] LABS: HEMATOCRIT 35.5 % (42.0-52.0); HEMOGLOBIN 11.8 g/dl (13.5-17.5); MEAN CORPUSCULAR HEMOGLOBIN 36.4 pg (27.0-33.0); MEAN CORPUSCULAR HGB CONC 33.2 g/dl (32.0-36.5); MEAN CORPUSCULAR VOLUME 109.6 fl (80.0-96.0); PLATELET COUNT, AUTOMATED 154 10^3/uL (150-450); RED BLOOD COUNT 3.24 10^6/uL (4.30-6.10); WHITE BLOOD COUNT 3.9 10^3/uL (4.0-10.0)
[2022-03-15 08:14] LABS: INR 3.37; PROTHROMBIN TIME 34.6 SECONDS (12.5-14.5)
[2022-03-15] MEDS: clonazePAM 1 MG TAB PO SCH (08:30)
[2022-03-15] MEDS: (RENVELA) SEVELAMER **CARBONate** 800 MG TAB PO SCH ×3 (08:30→18:24)
[2022-03-15] MEDS: CARVedilol 12.5 MG TAB PO SCH (08:30)
[2022-03-15] MEDS: cloNIDine 0.1MG TABLET PO SCH (08:30)
[2022-03-15 08:32] LABS: CALCIUM LEVEL 10.4 MG/DL (8.5-10.1); CREATININE FOR GFR 7.06 MG/DL (0.70-1.30); MAGNESIUM LEVEL 2.9 MG/DL (1.8-2.4); POTASSIUM SERUM 4.3 MEQ/L (3.5-5.1)
[2022-03-15] MEDS: buPROPion **SR TABLET** (ZYBAN) 150MG PO SCH (09:00)
[2022-03-15] MEDS: OMEPRAZOLE 20MG CAP PO SCH (12:16)
[2022-03-15] MEDS ORDERED: BUPR15TASR PO (12:16)
[2022-03-15] MEDS ORDERED: WARF4TAB52 PO (12:45)
[2022-03-15] MEDS ORDERED: CARV6.25 PO (12:45)
[2022-03-15] MEDS ORDERED: DIALTAB2 PO (12:45)
[2022-03-15] MEDS ORDERED: CINA30TA4 PO (12:47)
[2022-03-15] MEDS ORDERED: MIRT-10 PO (12:47)
[2022-03-15] MEDS ORDERED: FAMO1TAB11 PO (12:47)
[2022-03-15] MEDS ORDERED: OMEP-173 PO (12:47)
[2022-03-15] MEDS ORDERED: MED REC COMMENT (12:49)
[2022-03-15] MEDS ORDERED: HOME MED LIST COMPLETE! XX SCH (12:50)
[2022-03-15] MEDS: CINACALCET 30 MG TAB (SENSIPAR) PO SCH ×2 (13:35→13:37)
[2022-03-15] MEDS: METHADONE 10MG TAB PO SCH (13:35)
[2022-03-15 14:00] VITALS: BP 123/79
[2022-03-15] MEDS ORDERED: WARFARIN SOD 3MG TAB PO SCH (17:00)
[2022-03-15] MEDS: MIRTAZAPINE 15 MG TAB PO SCH (20:05)
[2022-03-15] MEDS: CARVedilol 6.25 MG TAB PO SCH (20:06)
[2022-03-15 22:00] VITALS: BP 130/80
[2022-03-16 06:00] VITALS: BP 129/79
[2022-03-16 06:12] LABS: HEMATOCRIT 35.4 % (42.0-52.0); HEMOGLOBIN 11.8 g/dl (13.5-17.5); MEAN CORPUSCULAR HEMOGLOBIN 36.9 pg (27.0-33.0); MEAN CORPUSCULAR HGB CONC 33.3 g/dl (32.0-36.5); MEAN CORPUSCULAR VOLUME 110.6 fl (80.0-96.0); PLATELET COUNT, AUTOMATED 160 10^3/uL (150-450); WHITE BLOOD COUNT 5.5 10^3/uL (4.0-10.0)
[2022-03-16 06:49] LABS: INR 3.18; PROTHROMBIN TIME 33.1 SECONDS (12.5-14.5)
[2022-03-16 07:00] LABS: CALCIUM LEVEL 10.8 MG/DL (8.5-10.1); CREATININE FOR GFR 9.53 MG/DL (0.70-1.30); GLOMERULAR FILTRATION RATE 6.4 (>60); MAGNESIUM LEVEL 2.9 MG/DL (1.8-2.4)
[2022-03-16] MEDS: OMEPRAZOLE 20MG CAP PO SCH (09:00)
[2022-03-16] MEDS: (RENVELA) SEVELAMER **CARBONate** 800 MG TAB PO SCH ×3 (09:33→17:49)
[2022-03-16] MEDS: buPROPion **SR TABLET** (ZYBAN) 150MG PO SCH (09:33)
[2022-03-16] MEDS: CINACALCET 30 MG TAB (SENSIPAR) PO SCH (09:34)
[2022-03-16] MEDS: METHADONE 10MG TAB PO SCH (09:34)
[2022-03-16] MEDS: CARVedilol 6.25 MG TAB PO SCH ×2 (09:34→20:20)
[2022-03-16 10:52] LABS: HEPATITIS B CORE ANTIBODY IGM NEGATIVE (NEGATIVE); HEPATITIS B SURFACE ANTIBODY POSITIVE (POSITIVE); HEPATITIS B SURFACE ANTIGEN NEGATIVE (NEGATIVE)
[2022-03-16 10:54] LABS: HEPATITIS C VIRUS ABY INDEX > 11.0 INDEX (<0.8)
[2022-03-16] MEDS ORDERED: PILL CUTTER 1 EACH XX PRN (11:45)
[2022-03-16 14:00] VITALS: BP 146/87
[2022-03-16] MEDS ORDERED: FAMOTIDINE 20 MG TAB PO SCH (14:00)
[2022-03-16] MEDS: MIRTAZAPINE 15 MG TAB PO SCH (20:20)
[2022-03-16 20:32] VITALS: BP 150/91
[2022-03-17 06:00] VITALS: BP 125/71
[2022-03-17] MEDS ORDERED: LIDOCAINE 1% SDV 5ML VIAL SC PRN (06:00)
[2022-03-17] MEDS ORDERED: SODIUM CHLORIDE 0.9% 1000ML IV PRN (06:00)
[2022-03-17 06:01] LABS: HEMATOCRIT 35.5 % (42.0-52.0); HEMOGLOBIN 11.8 g/dl (13.5-17.5); MEAN CORPUSCULAR HEMOGLOBIN 36.4 pg (27.0-33.0); MEAN CORPUSCULAR HGB CONC 33.2 g/dl (32.0-36.5); MEAN CORPUSCULAR VOLUME 109.6 fl (80.0-96.0); PLATELET COUNT, AUTOMATED 161 10^3/uL (150-450); RED BLOOD COUNT 3.24 10^6/uL (4.30-6.10); WHITE BLOOD COUNT 5.1 10^3/uL (4.0-10.0)
[2022-03-17 06:21] LABS: INR 2.32; PROTHROMBIN TIME 25.9 SECONDS (12.5-14.5)
[2022-03-17] MEDS: (RENVELA) SEVELAMER **CARBONate** 800 MG TAB PO SCH ×3 (06:42→17:40)
[2022-03-17] MEDS: CINACALCET 30 MG TAB (SENSIPAR) PO SCH (06:42)
[2022-03-17] MEDS: OMEPRAZOLE 20MG CAP PO SCH (06:42)
[2022-03-17] MEDS: METHADONE 10MG TAB PO SCH (06:43)
[2022-03-17] MEDS: buPROPion **SR TABLET** (ZYBAN) 150MG PO SCH (06:43)
[2022-03-17 06:55] LABS: CALCIUM LEVEL 10.1 MG/DL (8.5-10.1); CREATININE FOR GFR 11.8 MG/DL (0.70-1.30); POTASSIUM SERUM 4.9 MEQ/L (3.5-5.1)
[2022-03-17] MEDS: NICOTINE 21MG/24HR 1 EA TRANSDERMAL TD SCH (07:52)
[2022-03-17] MEDS: CARVedilol 6.25 MG TAB PO SCH ×2 (08:04→20:42)
[2022-03-17] MEDS: MIRTAZAPINE 15 MG TAB PO SCH (20:41)
[2022-03-18 06:00] VITALS: BP 141/81
[2022-03-18 07:29] LABS: HEMATOCRIT 36.2 % (42.0-52.0); HEMOGLOBIN 11.7 g/dl (13.5-17.5); MEAN CORPUSCULAR HEMOGLOBIN 36.3 pg (27.0-33.0); MEAN CORPUSCULAR HGB CONC 32.3 g/dl (32.0-36.5); MEAN CORPUSCULAR VOLUME 112.4 fl (80.0-96.0); PLATELET COUNT, AUTOMATED 165 10^3/uL (150-450); RED BLOOD COUNT 3.22 10^6/uL (4.30-6.10); WHITE BLOOD COUNT 5.4 10^3/uL (4.0-10.0)
[2022-03-18 07:40] LABS: INR 1.6; PROTHROMBIN TIME 19.3 SECONDS (12.5-14.5)
[2022-03-18] MEDS: NICOTINE 21MG/24HR 1 EA TRANSDERMAL TD SCH (08:39)
[2022-03-18 08:40] VITALS: BP 141/81
[2022-03-18] MEDS: METHADONE 10MG TAB PO SCH (08:40)
[2022-03-18] MEDS: (RENVELA) SEVELAMER **CARBONate** 800 MG TAB PO SCH (08:40)
[2022-03-18] MEDS: OMEPRAZOLE 20MG CAP PO SCH (08:40)
[2022-03-18] MEDS: buPROPion **SR TABLET** (ZYBAN) 150MG PO SCH (08:40)
[2022-03-18] MEDS: CARVedilol 6.25 MG TAB PO SCH (08:40)
[2022-03-18] MEDS: CINACALCET 30 MG TAB (SENSIPAR) PO SCH ×2 (08:40→08:49)
[2022-03-18 08:57] LABS: CALCIUM LEVEL 11.3 MG/DL (8.5-10.1); CREATININE FOR GFR 7.93 MG/DL (0.70-1.30); GLOMERULAR FILTRATION RATE 7.9 (>60); MAGNESIUM LEVEL 2.7 MG/DL (1.8-2.4); POTASSIUM SERUM 4.5 MEQ/L (3.5-5.1)
== END 2022-03-18 11:55 | disposition home or self-care (01) | DRG 683 ==
LOC: M ED 18:09 → M ED INP 18:10 → ENRESERV 03-14 02:04 → M MS5PR 03-14 02:50 → OBSVTOIN 03-16 11:25
PROVIDERS: ADMIT Internal Medicine; ATTEND Internal Medicine
PROC: 5A1D70Z Performance of Urinary Filtration, Intermittent, Less than 6 Hours Per Day (ICD-10-PCS; principal; 2022-03-17)
DX: N18.6 End stage renal disease (principal); E87.1 Hypo-osmolality and hyponatremia; Z99.2 Dependence on renal dialysis; I25.10 Atherosclerotic heart disease of native coronary artery without angina pectoris; Z95.5 Presence of coronary angioplasty implant and graft; I12.0 Hypertensive chronic kidney disease with stage 5 chronic kidney disease or end stage renal disease; F17.210 Nicotine dependence, cigarettes, uncomplicated; F32.A Depression, unspecified; F41.9 Anxiety disorder, unspecified; Z20.822 Contact with and (suspected) exposure to COVID-19; Z79.01 Long term (current) use of anticoagulants; Z79.899 Other long term (current) drug therapy; Z79.891 Long term (current) use of opiate analgesic; K21.9 Gastro-esophageal reflux disease without esophagitis

== ENCOUNTER 2022-03-20 10:08 | Emergency (ER) | payer MEDICAID, MEDICARE ==
[~2022-03-20] VITALS: Ht 165.1 cm; Wt 53.8 kg
[~2022-03-20 10:08] MED LIST changes: +BUPR15TASR PO; +CARV6.25 PO; +CINA30TA4 PO; +CLON2TAB7 PO; +CLONI1TA PO; +DIALTAB2 PO; +FAMO1TAB11 PO; +MED REC COMMENT; +METH10SO PO; +MIRT-10 PO; +OMEP-173 PO; +WARF-58 PO; +WARF4TAB52 PO
[2022-03-20 10:09] VITALS: BP 143/80
[2022-03-20] MEDS ORDERED: METHADONE 10MG TAB PO ONE (11:55)
== END 2022-03-20 13:01 | disposition home or self-care (01) ==
LOC: M ED 10:08
DX: Z76.0 Encounter for issue of repeat prescription (principal)
CPT/HCPCS: 99284; S0109

== ENCOUNTER 2022-05-11 15:50 | Inpatient (IN) | payer MEDICARE, MEDICAID ==
[~2022-05-11] VITALS: Ht 165.1 cm; Wt 54.5 kg
[2022-05-12] MEDS ORDERED: NS 500 ML IV ONE (03:05)
[2022-05-12 03:30] LABS: BASO # 0.1 10^3/uL (0.0-0.2); BASO % 1.1 % (0.0-1.0); EOS # 0.4 10^3/uL (0.0-0.5); HEMATOCRIT 40.7 % (42.0-52.0); HEMOGLOBIN 13.1 g/dl (13.5-17.5); LYMPH % 13.7 % (24.0-44.0); MEAN CORPUSCULAR HEMOGLOBIN 35.4 pg (27.0-33.0); MEAN CORPUSCULAR HGB CONC 32.2 g/dl (32.0-36.5); MONO # 0.9 10^3/uL (0.0-0.8); NEUTROPHILS % 67.9 % (36.0-66.0); PLATELET COUNT, AUTOMATED 165 10^3/uL (150-450); WHITE BLOOD COUNT 7.4 10^3/uL (4.0-10.0)
[2022-05-12 03:56] LABS: CK-MB VALUE MASS 1.7 NG/ML (<3.6)
[2022-05-12 04:00] LABS: FREE T4 1.05 NG/DL (0.89-1.76)
[2022-05-12 04:01] LABS: THYROID STIMULATING HORMONE 1.388 uIU/ML (0.55-4.78)
[2022-05-12 04:33] LABS: BILIRUBIN,DIRECT 0.2 MG/DL (<0.4)
[2022-05-12 04:40] LABS: ALBUMIN 4.1 G/DL (3.2-5.2); BILIRUBIN,TOTAL 0.3 MG/DL (0.3-1.2); CALCIUM LEVEL 11.7 MG/DL (8.5-10.1); CREATININE FOR GFR 10.59 MG/DL (0.70-1.30); GLOMERULAR FILTRATION RATE 5.6 (>60); MB/CK RELATIVE INDEX 0.77 (< OR =4); POTASSIUM SERUM 6.1 MMOL/L (3.5-5.1); TOTAL PROTEIN 7.9 G/DL (5.7-8.2)
[2022-05-12] MEDS ORDERED: CALCIUM CHLORIDE 10% 1 GM/10 ML SYR IV ONE (04:45)
[2022-05-12] MEDS ORDERED: PATIROMER SORBITEX CALCIUM 8.4 GM POWDER PACKET (VELTASSA) PO ONE (04:45)
[2022-05-12] MEDS ORDERED: HumuLIN R (REGULAR) INSULIN (NovoLIN R) **100U/ML** PER UNIT IV ONE (04:45)
[2022-05-12] MEDS ORDERED: DEXTROSE 50% 50ML SYRINGE IV ONE (04:45)
[2022-05-12] MEDS ORDERED: DEXTROSE 50% 50ML SYRINGE IV STA (05:13)
[2022-05-12] MEDS ORDERED: METH10CO PO (06:09)
[2022-05-12] MEDS ORDERED: RENATAB5 PO (06:09)
[2022-05-12] MEDS ORDERED: SEVE800T13 PO (06:09)
[2022-05-12] MEDS ORDERED: ACETAMINOPHEN TAB 650MG DOSE (2X325MG) PO PRN (06:15)
[2022-05-12 07:59] LABS: HEMATOCRIT 36.6 % (42.0-52.0); HEMOGLOBIN 11.7 g/dl (13.5-17.5); MEAN CORPUSCULAR HEMOGLOBIN 35.2 pg (27.0-33.0); MEAN CORPUSCULAR VOLUME 110.2 fl (80.0-96.0); PLATELET COUNT, AUTOMATED 167 10^3/uL (150-450); RED BLOOD COUNT 3.32 10^6/uL (4.30-6.10); WHITE BLOOD COUNT 8.4 10^3/uL (4.0-10.0)
[2022-05-12] MEDS ORDERED: SODIUM CHLORIDE 0.9% 1000ML IV PRN (08:00)
[2022-05-12] MEDS ORDERED: HEPARIN 1,000UNITS/ML 10ML VIAL (FOR RADIOLOGY & DIALYSIS ONLY) IV PRN (08:00)
[2022-05-12] MEDS ORDERED: LIDOCAINE 1% SDV 5ML VIAL SC PRN (08:00)
[2022-05-12] MEDS ORDERED: HEPARIN 1,000UNITS/ML 10ML VIAL (FOR RADIOLOGY & DIALYSIS ONLY) XX SCH (08:00)
[2022-05-12 08:08] LABS: CALCIUM LEVEL 11.7 MG/DL (8.5-10.1); CREATININE FOR GFR 10.49 MG/DL (0.70-1.30); GLOMERULAR FILTRATION RATE 5.7 (>60); POTASSIUM SERUM 5.7 MMOL/L (3.5-5.1)
[2022-05-12] MEDS: CARVedilol 6.25 MG TAB PO SCH ×2 (08:28→22:26)
[2022-05-12] MEDS ORDERED: DEXTROSE 50% 50ML SYRINGE IV PRN (08:45)
[2022-05-12] MEDS ORDERED: GLUCOSE 4GM CHEW TABLET PO PRN (08:45)
[2022-05-12] MEDS ORDERED: GLUCAGON INJ 1MG VIAL SC PRN (08:45)
[2022-05-12] MEDS: (RENVELA) SEVELAMER **CARBONate** 800 MG TAB PO SCH ×3 (08:54→17:52)
[2022-05-12] MEDS ORDERED: HOME MED LIST COMPLETE! XX SCH (10:45)
[2022-05-12] MEDS: CINACALCET 30 MG TAB (SENSIPAR) PO SCH (13:21)
[2022-05-12 14:18] LABS: PTH INTACT 1039.6 PG/ML (18.5-88.0)
[2022-05-12 17:45] VITALS: BP 127/80
[2022-05-12] MEDS: METHADONE 10MG TAB PO SCH (17:51)
[2022-05-12 21:30] VITALS: BP 130/80
[2022-05-12 21:49] LABS: CALCIUM LEVEL 10.5 MG/DL (8.5-10.1); CREATININE FOR GFR 5.79 MG/DL (0.70-1.30); GLOMERULAR FILTRATION RATE 11.3 (>60)
[2022-05-12] MEDS ORDERED: MAALOX 30 ML SUSP *UDC PO ONE (22:00)
[2022-05-13 06:00] VITALS: BP 132/78
[2022-05-13 06:00] LABS: HEMATOCRIT 39.3 % (42.0-52.0); MEAN CORPUSCULAR HEMOGLOBIN 36.2 pg (27.0-33.0); MEAN CORPUSCULAR HGB CONC 33.1 g/dl (32.0-36.5); MEAN CORPUSCULAR VOLUME 109.5 fl (80.0-96.0); PLATELET COUNT, AUTOMATED 157 10^3/uL (150-450); RED BLOOD COUNT 3.59 10^6/uL (4.30-6.10); WHITE BLOOD COUNT 5.6 10^3/uL (4.0-10.0)
[2022-05-13 06:28] LABS: MAGNESIUM LEVEL 3.2 MG/DL (1.8-2.4)
[2022-05-13 06:35] LABS: ALBUMIN 3.4 G/DL (3.2-5.2); BILIRUBIN,TOTAL 0.5 MG/DL (0.3-1.2); CALCIUM LEVEL 10.7 MG/DL (8.5-10.1); CREATININE FOR GFR 6.64 MG/DL (0.70-1.30); GLOMERULAR FILTRATION RATE 9.7 (>60); POTASSIUM SERUM 5.6 MMOL/L (3.5-5.1); TOTAL PROTEIN 7.4 G/DL (5.7-8.2)
[2022-05-13] MEDS: CARVedilol 6.25 MG TAB PO SCH ×2 (09:34→22:06)
[2022-05-13] MEDS: (RENVELA) SEVELAMER **CARBONate** 800 MG TAB PO SCH ×3 (09:35→18:00)
[2022-05-13] MEDS: CINACALCET 30 MG TAB (SENSIPAR) PO SCH (09:35)
[2022-05-13] MEDS: METHADONE 10MG TAB PO SCH (09:35)
[2022-05-13] MEDS: D10W 1,000 ML IV SCH (09:51)
[2022-05-13] MEDS ORDERED: PATIROMER SORBITEX CALCIUM 8.4 GM POWDER PACKET (VELTASSA) PO ONE (10:00)
[2022-05-13 14:00] VITALS: BP 123/80
[2022-05-13 20:00] VITALS: BP 120/78
[2022-05-13] MEDS: HEPARIN SOD (PORCINE) 5000UNITS/ML 1ML VIAL/SYRINGE SQ SCH (22:03)
[2022-05-14 06:00] VITALS: BP 138/84
[2022-05-14] MEDS ORDERED: HEPARIN 1,000UNITS/ML 10ML VIAL (FOR RADIOLOGY & DIALYSIS ONLY) IV PRN (06:00)
[2022-05-14] MEDS ORDERED: HEPARIN 1,000UNITS/ML 10ML VIAL (FOR RADIOLOGY & DIALYSIS ONLY) XX SCH (06:00)
[2022-05-14] MEDS ORDERED: SODIUM CHLORIDE 0.9% 1000ML IV PRN (06:00)
[2022-05-14] MEDS ORDERED: LIDOCAINE 1% SDV 5ML VIAL SC PRN (06:00)
[2022-05-14] MEDS: METHADONE 10MG TAB PO SCH (06:52)
[2022-05-14] MEDS: CINACALCET 30 MG TAB (SENSIPAR) PO SCH (06:52)
[2022-05-14] MEDS: HEPARIN SOD (PORCINE) 5000UNITS/ML 1ML VIAL/SYRINGE SQ SCH ×2 (06:55→21:58)
[2022-05-14] MEDS: (RENVELA) SEVELAMER **CARBONate** 800 MG TAB PO SCH ×3 (06:56→18:21)
[2022-05-14] MEDS: CARVedilol 6.25 MG TAB PO SCH ×2 (06:58→21:59)
[2022-05-14] MEDS: D10W 1,000 ML IV SCH ×2 (06:58→21:58)
[2022-05-14 07:21] LABS: HEMATOCRIT 41.2 % (42.0-52.0); HEMOGLOBIN 13.4 g/dl (13.5-17.5); MEAN CORPUSCULAR HEMOGLOBIN 35.7 pg (27.0-33.0); MEAN CORPUSCULAR HGB CONC 32.5 g/dl (32.0-36.5); MEAN CORPUSCULAR VOLUME 109.9 fl (80.0-96.0); PLATELET COUNT, AUTOMATED 143 10^3/uL (150-450); RED BLOOD COUNT 3.75 10^6/uL (4.30-6.10); WHITE BLOOD COUNT 5.4 10^3/uL (4.0-10.0)
[2022-05-14 07:48] LABS: ALBUMIN 3.5 G/DL (3.2-5.2); BILIRUBIN,TOTAL 0.4 MG/DL (0.3-1.2); CALCIUM LEVEL 10.4 MG/DL (8.5-10.1); CREATININE FOR GFR 8.57 MG/DL (0.70-1.30); GLOMERULAR FILTRATION RATE 7.2 (>60); TOTAL PROTEIN 7.5 G/DL (5.7-8.2)
[2022-05-14 14:00] VITALS: BP 114/78
[2022-05-14] MEDS: PANTOPRAZOLE 40MG TAB (PROTONIX) PO SCH (18:20)
[2022-05-14 21:25] VITALS: BP 143/96
[2022-05-15 06:00] VITALS: BP 127/76
[2022-05-15 06:30] LABS: HEMATOCRIT 42.7 % (42.0-52.0); HEMOGLOBIN 14.3 g/dl (13.5-17.5); MEAN CORPUSCULAR HEMOGLOBIN 35.9 pg (27.0-33.0); MEAN CORPUSCULAR HGB CONC 33.5 g/dl (32.0-36.5); MEAN CORPUSCULAR VOLUME 107.3 fl (80.0-96.0); PLATELET COUNT, AUTOMATED 135 10^3/uL (150-450); RED BLOOD COUNT 3.98 10^6/uL (4.30-6.10); WHITE BLOOD COUNT 5.4 10^3/uL (4.0-10.0)
[2022-05-15 06:42] LABS: ALBUMIN 3.5 G/DL (3.2-5.2); BILIRUBIN,TOTAL 0.7 MG/DL (0.3-1.2); CREATININE FOR GFR 6.95 MG/DL (0.70-1.30); GLOMERULAR FILTRATION RATE 9.2 (>60); POTASSIUM SERUM 4.9 MMOL/L (3.5-5.1); TOTAL PROTEIN 7.7 G/DL (5.7-8.2)
[2022-05-15] MEDS: CINACALCET 30 MG TAB (SENSIPAR) PO SCH (09:02)
[2022-05-15] MEDS: PANTOPRAZOLE 40MG TAB (PROTONIX) PO SCH (09:02)
[2022-05-15] MEDS: (RENVELA) SEVELAMER **CARBONate** 800 MG TAB PO SCH ×3 (09:02→17:43)
[2022-05-15] MEDS: METHADONE 10MG TAB PO SCH (09:02)
[2022-05-15] MEDS: CARVedilol 6.25 MG TAB PO SCH ×2 (09:03→21:27)
[2022-05-15] MEDS: HEPARIN SOD (PORCINE) 5000UNITS/ML 1ML VIAL/SYRINGE SQ SCH ×2 (09:03→21:26)
[2022-05-15 14:00] VITALS: BP 138/62
[2022-05-15] MEDS ORDERED: PILL CUTTER 1 EACH XX PRN (17:00)
[2022-05-15] MEDS: FAMOTIDINE 20 MG TAB PO SCH (17:43)
[2022-05-15] MEDS: OMEPRAZOLE 20MG CAP PO SCH (17:44)
[2022-05-15] MEDS: D10W 1,000 ML IV SCH (18:17)
[2022-05-15 20:00] VITALS: BP 124/82
[2022-05-16 06:00] VITALS: BP 139/83
[2022-05-16 06:22] LABS: HEMATOCRIT 40.7 % (42.0-52.0); MEAN CORPUSCULAR HGB CONC 34.4 g/dl (32.0-36.5); MEAN CORPUSCULAR VOLUME 104.6 fl (80.0-96.0); PLATELET COUNT, AUTOMATED 139 10^3/uL (150-450); RED BLOOD COUNT 3.89 10^6/uL (4.30-6.10); WHITE BLOOD COUNT 6.1 10^3/uL (4.0-10.0)
[2022-05-16] MEDS ORDERED: HEPARIN 1,000UNITS/ML 10ML VIAL (FOR RADIOLOGY & DIALYSIS ONLY) IV PRN (06:50)
[2022-05-16] MEDS ORDERED: SODIUM CHLORIDE 0.9% 1000ML IV PRN (06:50)
[2022-05-16] MEDS ORDERED: LIDOCAINE 1% SDV 5ML VIAL SC PRN (06:50)
[2022-05-16] MEDS ORDERED: HEPARIN 1,000UNITS/ML 10ML VIAL (FOR RADIOLOGY & DIALYSIS ONLY) XX SCH (06:50)
[2022-05-16 06:55] LABS: ALBUMIN 3.4 G/DL (3.2-5.2); BILIRUBIN,TOTAL 0.5 MG/DL (0.3-1.2); CALCIUM LEVEL 10.4 MG/DL (8.5-10.1); CREATININE FOR GFR 9.4 MG/DL (0.70-1.30); GLOMERULAR FILTRATION RATE 6.5 (>60); POTASSIUM SERUM 4.5 MMOL/L (3.5-5.1); TOTAL PROTEIN 7.2 G/DL (5.7-8.2)
[2022-05-16] MEDS: (RENVELA) SEVELAMER **CARBONate** 800 MG TAB PO SCH ×2 (07:57→12:35)
[2022-05-16] MEDS: HEPARIN SOD (PORCINE) 5000UNITS/ML 1ML VIAL/SYRINGE SQ SCH ×2 (12:25→21:47)
[2022-05-16 12:35] VITALS: BP 129/89
[2022-05-16] MEDS: METHADONE 10MG TAB PO SCH (12:35)
[2022-05-16] MEDS: OMEPRAZOLE 20MG CAP PO SCH (12:36)
[2022-05-16] MEDS: CARVedilol 6.25 MG TAB PO SCH ×2 (12:36→21:48)
[2022-05-16] MEDS: PANTOPRAZOLE 40MG TAB (PROTONIX) PO SCH (12:36)
[2022-05-16] MEDS: FAMOTIDINE 20 MG TAB PO SCH (12:36)
[2022-05-16] MEDS: CINACALCET 30 MG TAB (SENSIPAR) PO SCH (12:41)
[2022-05-16 14:00] VITALS: BP 128/55
[2022-05-16 14:57] LABS: PHOSPHORUS LEVEL 7.3 MG/DL (2.5-4.9)
[2022-05-16 20:12] VITALS: BP 120/81
[2022-05-17] MEDS: D10W 1,000 ML IV SCH (00:48)
[2022-05-17 06:00] VITALS: BP 114/71
[2022-05-17 07:31] LABS: HEMATOCRIT 44.4 % (42.0-52.0); HEMOGLOBIN 14.6 g/dl (13.5-17.5); MEAN CORPUSCULAR HEMOGLOBIN 35.5 pg (27.0-33.0); MEAN CORPUSCULAR HGB CONC 32.9 g/dl (32.0-36.5); PLATELET COUNT, AUTOMATED 129 10^3/uL (150-450); RED BLOOD COUNT 4.11 10^6/uL (4.30-6.10); WHITE BLOOD COUNT 6.2 10^3/uL (4.0-10.0)
[2022-05-17 07:58] LABS: ALBUMIN 3.8 G/DL (3.2-5.2); BILIRUBIN,TOTAL 0.5 MG/DL (0.3-1.2); CALCIUM LEVEL 10.2 MG/DL (8.5-10.1); CREATININE FOR GFR 6.79 MG/DL (0.70-1.30); GLOMERULAR FILTRATION RATE 9.4 (>60); PHOSPHORUS LEVEL 5.9 MG/DL (2.5-4.9); POTASSIUM SERUM 4.3 MMOL/L (3.5-5.1); TOTAL PROTEIN 7.5 G/DL (5.7-8.2)
[2022-05-17] MEDS: SUCROFERRIC OXYHYDROXIDE 500MG CHEW TAB (VELPHORO) PO SCH ×3 (09:40→17:17)
[2022-05-17] MEDS: OMEPRAZOLE 20MG CAP PO SCH (09:48)
[2022-05-17] MEDS: CARVedilol 6.25 MG TAB PO SCH ×2 (09:49→21:54)
[2022-05-17] MEDS: HEPARIN SOD (PORCINE) 5000UNITS/ML 1ML VIAL/SYRINGE SQ SCH ×2 (09:49→21:51)
[2022-05-17] MEDS: PANTOPRAZOLE 40MG TAB (PROTONIX) PO SCH (09:49)
[2022-05-17] MEDS: CINACALCET 30 MG TAB (SENSIPAR) PO SCH (09:49)
[2022-05-17] MEDS: FAMOTIDINE 20 MG TAB PO SCH (09:49)
[2022-05-17] MEDS: METHADONE 10MG TAB PO SCH (11:34)
[2022-05-17 14:00] VITALS: BP 119/78
[2022-05-17 21:40] VITALS: BP 117/71
[2022-05-18 06:00] VITALS: BP 135/78
[2022-05-18 06:45] LABS: HEMATOCRIT 43.3 % (42.0-52.0); HEMOGLOBIN 14.4 g/dl (13.5-17.5); MEAN CORPUSCULAR HEMOGLOBIN 35.7 pg (27.0-33.0); MEAN CORPUSCULAR HGB CONC 33.3 g/dl (32.0-36.5); MEAN CORPUSCULAR VOLUME 107.4 fl (80.0-96.0); PLATELET COUNT, AUTOMATED 135 10^3/uL (150-450); RED BLOOD COUNT 4.03 10^6/uL (4.30-6.10); WHITE BLOOD COUNT 7.8 10^3/uL (4.0-10.0)
[2022-05-18 07:36] LABS: ALBUMIN 3.9 G/DL (3.2-5.2); BILIRUBIN,TOTAL 0.5 MG/DL (0.3-1.2); CALCIUM LEVEL 9.5 MG/DL (8.5-10.1); CREATININE FOR GFR 8.65 MG/DL (0.70-1.30); GLOMERULAR FILTRATION RATE 7.1 (>60); POTASSIUM SERUM 4.3 MMOL/L (3.5-5.1); TOTAL PROTEIN 7.8 G/DL (5.7-8.2)
[2022-05-18] MEDS: HEPARIN SOD (PORCINE) 5000UNITS/ML 1ML VIAL/SYRINGE SQ SCH ×2 (09:14→21:42)
[2022-05-18] MEDS: METHADONE 10MG TAB PO SCH (09:21)
[2022-05-18] MEDS: CINACALCET 30 MG TAB (SENSIPAR) PO SCH (09:21)
[2022-05-18] MEDS: SUCROFERRIC OXYHYDROXIDE 500MG CHEW TAB (VELPHORO) PO SCH ×3 (09:21→17:34)
[2022-05-18] MEDS: PANTOPRAZOLE 40MG TAB (PROTONIX) PO SCH (09:22)
[2022-05-18] MEDS: FAMOTIDINE 20 MG TAB PO SCH (09:22)
[2022-05-18] MEDS: OMEPRAZOLE 20MG CAP PO SCH (09:23)
[2022-05-18] MEDS: CARVedilol 6.25 MG TAB PO SCH ×2 (09:23→21:42)
[2022-05-18] MEDS: D10W 1,000 ML IV SCH (09:26)
[2022-05-18 14:00] VITALS: BP 136/83
[2022-05-18 21:00] VITALS: BP 131/81
[2022-05-19] MEDS: D10W 1,000 ML IV SCH (00:04)
[2022-05-19 06:00] VITALS: BP 131/80
[2022-05-19] MEDS: CINACALCET 30 MG TAB (SENSIPAR) PO SCH (06:28)
[2022-05-19] MEDS: PANTOPRAZOLE 40MG TAB (PROTONIX) PO SCH (06:29)
[2022-05-19] MEDS: OMEPRAZOLE 20MG CAP PO SCH (06:29)
[2022-05-19] MEDS: METHADONE 10MG TAB PO SCH (06:29)
[2022-05-19] MEDS: FAMOTIDINE 20 MG TAB PO SCH (06:33)
[2022-05-19 06:34] VITALS: BP 133/81
[2022-05-19] MEDS: CARVedilol 6.25 MG TAB PO SCH (06:34)
[2022-05-19] MEDS: HEPARIN SOD (PORCINE) 5000UNITS/ML 1ML VIAL/SYRINGE SQ SCH (06:34)
[2022-05-19 06:38] LABS: HEMATOCRIT 36.7 % (42.0-52.0); HEMOGLOBIN 12.6 g/dl (13.5-17.5); MEAN CORPUSCULAR HEMOGLOBIN 35.6 pg (27.0-33.0); MEAN CORPUSCULAR HGB CONC 34.3 g/dl (32.0-36.5); MEAN CORPUSCULAR VOLUME 103.7 fl (80.0-96.0); PLATELET COUNT, AUTOMATED 131 10^3/uL (150-450); RED BLOOD COUNT 3.54 10^6/uL (4.30-6.10); WHITE BLOOD COUNT 6.7 10^3/uL (4.0-10.0)
[2022-05-19] MEDS: SUCROFERRIC OXYHYDROXIDE 500MG CHEW TAB (VELPHORO) PO SCH ×4 (07:00→17:40)
[2022-05-19] MEDS ORDERED: LIDOCAINE 1% SDV 5ML VIAL SC PRN (07:20)
[2022-05-19] MEDS ORDERED: HEPARIN 1,000UNITS/ML 10ML VIAL (FOR RADIOLOGY & DIALYSIS ONLY) IV PRN (07:20)
[2022-05-19] MEDS ORDERED: HEPARIN 1,000UNITS/ML 10ML VIAL (FOR RADIOLOGY & DIALYSIS ONLY) XX SCH (07:20)
[2022-05-19] MEDS ORDERED: SODIUM CHLORIDE 0.9% 1000ML IV PRN (07:20)
[2022-05-19 07:37] LABS: ALBUMIN 3.2 G/DL (3.2-5.2); BILIRUBIN,TOTAL 0.4 MG/DL (0.3-1.2); CALCIUM LEVEL 8.9 MG/DL (8.5-10.1); CREATININE FOR GFR 10.53 MG/DL (0.70-1.30); GLOMERULAR FILTRATION RATE 5.7 (>60); POTASSIUM SERUM 4.4 MMOL/L (3.5-5.1); TOTAL PROTEIN 6.5 G/DL (5.7-8.2)
[2022-05-19] MEDS: ONDANSETRON 4MG TAB PO SCH ×2 (12:00→17:30)
[2022-05-19 13:25] LABS: HEMATOCRIT 38.5 % (42.0-52.0); HEMOGLOBIN 13.2 g/dl (13.5-17.5)
[2022-05-19 16:00] VITALS: BP 140/89
== END 2022-05-19 19:39 | disposition left against medical advice (07) | DRG 640 ==
LOC: M ED 15:50 → M ED INP 15:51 → OBSVTOIN 16:13 → ENRESERV 05-12 14:57 → M MSPAV 05-12 17:39
PROVIDERS: ADMIT Internal Medicine; ATTEND Family Medicine
PROC: 5A1D70Z Performance of Urinary Filtration, Intermittent, Less than 6 Hours Per Day (ICD-10-PCS; principal; 2022-05-12)
DX: E87.5 Hyperkalemia (principal); N18.6 End stage renal disease; I12.0 Hypertensive chronic kidney disease with stage 5 chronic kidney disease or end stage renal disease; F11.20 Opioid dependence, uncomplicated; E83.52 Hypercalcemia; I25.10 Atherosclerotic heart disease of native coronary artery without angina pectoris; R53.1 Weakness; L98.9 Disorder of the skin and subcutaneous tissue, unspecified; E16.2 Hypoglycemia, unspecified; D64.9 Anemia, unspecified; F15.10 Other stimulant abuse, uncomplicated; F17.210 Nicotine dependence, cigarettes, uncomplicated; R63.0 Anorexia; Z79.899 Other long term (current) drug therapy; Z99.2 Dependence on renal dialysis; Z95.1 Presence of aortocoronary bypass graft; Z65.2 Problems related to release from prison

== ENCOUNTER 2022-07-16 10:06 | Inpatient (IN) | payer MEDICARE, MEDICAID ==
[~2022-07-16] VITALS: Ht 165.1 cm; Wt 51.8 kg
[~2022-07-16 10:06] MED LIST changes: +METH10CO PO; +RENATAB5 PO; +SEVE800T13 PO
[2022-07-16 11:02] LABS: BASO # 0.1 10^3/uL (0.0-0.2); BASO % 0.6 % (0.0-1.0); EOS # 0.2 10^3/uL (0.0-0.5); EOS % 1.8 % (0.0-3.0); HEMOGLOBIN 12.6 g/dl (13.5-17.5); LYMPH # 0.6 10^3/uL (1.5-5.0); LYMPH % 6.5 % (24.0-44.0); MEAN CORPUSCULAR HGB CONC 32.3 g/dl (32.0-36.5); MEAN CORPUSCULAR VOLUME 108.3 fl (80.0-96.0); MONO # 0.6 10^3/uL (0.0-0.8); MONO % 6.5 % (2.0-8.0); NEUTROPHILS # 7.8 10^3/uL (1.5-8.5); NEUTROPHILS % 84.3 % (36.0-66.0); PLATELET COUNT, AUTOMATED 140 10^3/uL (150-450); WHITE BLOOD COUNT 9.3 10^3/uL (4.0-10.0)
[2022-07-16 11:29] LABS: THYROID STIMULATING HORMONE 2.083 uIU/ML (0.55-4.78); THYROXINE (T4) 7.3 UG/DL (4.5-10.9)
[2022-07-16 11:31] LABS: ALBUMIN 3.5 G/DL (3.2-5.2); ALKALINE PHOSPHATASE 248 U/L (46-116); ALT/SGPT 35 U/L (7.0-40); AST/SGOT 28 U/L (<34); BILIRUBIN,DIRECT < 0.1 MG/DL (<0.4); BILIRUBIN,TOTAL 0.2 MG/DL (0.3-1.2); BLOOD UREA NITROGEN 42 MG/DL (9-23); CALCIUM LEVEL 10.7 MG/DL (8.5-10.1); CARBON DIOXIDE LEVEL 28 MMOL/L (20-31); CHLORIDE LEVEL 97 MMOL/L (98-107); CREATININE FOR GFR 10.41 MG/DL (0.70-1.30); GLOMERULAR FILTRATION RATE 5.8 (>60); GLUCOSE, FASTING 114 MG/DL (60-100); MAGNESIUM LEVEL 2.5 MG/DL (1.8-2.4); POTASSIUM SERUM 5.4 MMOL/L (3.5-5.1); SODIUM LEVEL 138 MMOL/L (136-145); TOTAL PROTEIN 7.3 G/DL (5.7-8.2)
[2022-07-16 11:53] LABS: RSV AMPLIFICATION NEGATIVE (NEGATIVE)
[2022-07-16] MEDS ORDERED: LACTULOSE 20GM/30ML SYRUP UDC PO ONE (13:00)
[2022-07-16] MEDS ORDERED: HEPARIN 1,000UNITS/ML 10ML VIAL (FOR RADIOLOGY & DIALYSIS ONLY) IV PRN (13:05)
[2022-07-16] MEDS ORDERED: LIDOCAINE 1% SDV 5ML VIAL SC PRN (13:05)
[2022-07-16] MEDS ORDERED: HEPARIN 1,000UNITS/ML 10ML VIAL (FOR RADIOLOGY & DIALYSIS ONLY) XX SCH (13:05)
[2022-07-16] MEDS ORDERED: SODIUM CHLORIDE 0.9% 1000ML IV PRN (13:05)
[2022-07-16] MEDS ORDERED: OMEP-173 PO (14:02)
[2022-07-16] MEDS ORDERED: HOME MED LIST COMPLETE! XX SCH (14:05)
[2022-07-16 15:30] LABS: HEPATITIS B CORE ANTIBODY IGM NEGATIVE (NEGATIVE); HEPATITIS B SURFACE ANTIBODY POSITIVE (POSITIVE); HEPATITIS B SURFACE ANTIGEN NEGATIVE (NEGATIVE)
[2022-07-16 16:43] LABS: HEPATITIS C VIRUS ABY INDEX > 11.0 INDEX (<0.8)
[2022-07-16 18:50] VITALS: BP 90/64
[2022-07-16] MEDS: LACTULOSE 20GM/30ML SYRUP UDC PO SCH ×2 (18:59→23:54)
[2022-07-16 22:00] VITALS: BP 95/58
[2022-07-17] MEDS: LACTULOSE 20GM/30ML SYRUP UDC PO SCH ×3 (05:51→20:27)
[2022-07-17 05:58] VITALS: BP 109/64
[2022-07-17 06:15] LABS: HEMATOCRIT 38.8 % (42.0-52.0); HEMOGLOBIN 12.6 g/dl (13.5-17.5); MEAN CORPUSCULAR HEMOGLOBIN 35.2 pg (27.0-33.0); MEAN CORPUSCULAR HGB CONC 32.5 g/dl (32.0-36.5); MEAN CORPUSCULAR VOLUME 108.4 fl (80.0-96.0); PLATELET COUNT, AUTOMATED 134 10^3/uL (150-450); RED BLOOD COUNT 3.58 10^6/uL (4.30-6.10)
[2022-07-17 06:33] LABS: CALCIUM LEVEL 10.5 MG/DL (8.5-10.1); CREATININE FOR GFR 6.35 MG/DL (0.70-1.30); GLOMERULAR FILTRATION RATE 10.2 (>60)
[2022-07-17] MEDS ORDERED: DEXTROSE 50% 50ML SYRINGE IV PRN (07:05)
[2022-07-17] MEDS ORDERED: GLUCOSE 4GM CHEW TABLET PO PRN (07:05)
[2022-07-17] MEDS ORDERED: GLUCAGON INJ 1MG VIAL SC PRN (07:05)
[2022-07-17] MEDS ORDERED: DEXTROSE 50% 50ML SYRINGE As Ordered ONE (07:07)
[2022-07-17] MEDS ORDERED: PILL CUTTER 1 EACH XX PRN (08:45)
[2022-07-17] MEDS: OMEPRAZOLE 20MG CAP PO SCH (09:05)
[2022-07-17] MEDS: METHADONE 10MG TAB PO SCH (09:06)
[2022-07-17] MEDS ORDERED: BISACODYL 10MG SUPP PR ONE (09:15)
[2022-07-17 14:00] VITALS: BP 101/60
[2022-07-17] MEDS: BISACODYL 10MG SUPP PR SCH (20:29)
[2022-07-17 22:00] VITALS: BP 110/69
[2022-07-18 05:32] LABS: BASO # 0.1 10^3/uL (0.0-0.2); BASO % 0.8 % (0.0-1.0); EOS # 0.4 10^3/uL (0.0-0.5); EOS % 5.1 % (0.0-3.0); HEMATOCRIT 41.6 % (42.0-52.0); HEMOGLOBIN 13.5 g/dl (13.5-17.5); LYMPH # 1.8 10^3/uL (1.5-5.0); LYMPH % 24.7 % (24.0-44.0); MEAN CORPUSCULAR HEMOGLOBIN 35.3 pg (27.0-33.0); MEAN CORPUSCULAR HGB CONC 32.5 g/dl (32.0-36.5); MEAN CORPUSCULAR VOLUME 108.9 fl (80.0-96.0); MONO # 0.9 10^3/uL (0.0-0.8); MONO % 12.2 % (2.0-8.0); NEUTROPHILS # 4.1 10^3/uL (1.5-8.5); NEUTROPHILS % 56.8 % (36.0-66.0); PLATELET COUNT, AUTOMATED 127 10^3/uL (150-450); RED BLOOD COUNT 3.82 10^6/uL (4.30-6.10); WHITE BLOOD COUNT 7.3 10^3/uL (4.0-10.0)
[2022-07-18 06:00] VITALS: BP 109/69
[2022-07-18] MEDS ORDERED: SODIUM CHLORIDE 0.9% 1000ML IV PRN (06:00)
[2022-07-18] MEDS ORDERED: LIDOCAINE 1% SDV 5ML VIAL SC PRN (06:00)
[2022-07-18] MEDS ORDERED: HEPARIN 1,000UNITS/ML 10ML VIAL (FOR RADIOLOGY & DIALYSIS ONLY) IV PRN (06:00)
[2022-07-18] MEDS ORDERED: HEPARIN 1,000UNITS/ML 10ML VIAL (FOR RADIOLOGY & DIALYSIS ONLY) XX SCH (06:00)
[2022-07-18 06:02] LABS: CALCIUM LEVEL 10.3 MG/DL (8.5-10.1); CREATININE FOR GFR 8.73 MG/DL (0.70-1.30); GLOMERULAR FILTRATION RATE 7.1 (>60); POTASSIUM SERUM 4.6 MMOL/L (3.5-5.1)
[2022-07-18] MEDS: METHADONE 10MG TAB PO SCH (06:34)
[2022-07-18] MEDS: BISACODYL 10MG SUPP PR SCH (06:35)
[2022-07-18] MEDS: LACTULOSE 20GM/30ML SYRUP UDC PO SCH ×2 (06:35→14:28)
[2022-07-18] MEDS: OMEPRAZOLE 20MG CAP PO SCH (06:35)
[2022-07-18 14:00] VITALS: BP 93/59
== END 2022-07-18 16:15 | disposition left against medical advice (07) | DRG 640 ==
LOC: M ED 10:06 → M ED INP 13:22 → ENRESERV 14:27 → M MSPAV 14:44
PROVIDERS: ADMIT Internal Medicine; ATTEND Internal Medicine
DX: E87.5 Hyperkalemia (principal); N18.6 End stage renal disease; I12.0 Hypertensive chronic kidney disease with stage 5 chronic kidney disease or end stage renal disease; E11.22 Type 2 diabetes mellitus with diabetic chronic kidney disease; E16.2 Hypoglycemia, unspecified; E21.1 Secondary hyperparathyroidism, not elsewhere classified; I25.10 Atherosclerotic heart disease of native coronary artery without angina pectoris; K59.09 Other constipation; F41.9 Anxiety disorder, unspecified; F32.A Depression, unspecified; F17.210 Nicotine dependence, cigarettes, uncomplicated; Z20.822 Contact with and (suspected) exposure to COVID-19; Z79.899 Other long term (current) drug therapy; Z99.2 Dependence on renal dialysis; Z95.5 Presence of coronary angioplasty implant and graft

== ENCOUNTER 2022-08-31 11:56 | Inpatient (IN) | payer OTHER, MEDICAID ==
[~2022-08-31] VITALS: Ht 165.1 cm; Wt 58.4 kg
[2022-08-31] MEDS ORDERED: CONS10SO3 (12:08)
[2022-08-31] MEDS ORDERED: KLON2TAB PO (12:08)
[2022-08-31 13:41] LABS: BASO # 0.1 10^3/uL (0.0-0.2); BASO % 0.7 % (0.0-1.0); EOS # 0.1 10^3/uL (0.0-0.5); EOS % 1.1 % (0.0-3.0); HEMATOCRIT 32.2 % (42.0-52.0); HEMOGLOBIN 10.8 g/dl (13.5-17.5); LYMPH # 0.8 10^3/uL (1.5-5.0); LYMPH % 9.3 % (24.0-44.0); MEAN CORPUSCULAR HEMOGLOBIN 34.1 pg (27.0-33.0); MEAN CORPUSCULAR HGB CONC 33.5 g/dl (32.0-36.5); MEAN CORPUSCULAR VOLUME 101.6 fl (80.0-96.0); MONO # 1.1 10^3/uL (0.0-0.8); MONO % 12.2 % (2.0-8.0); NEUTROPHILS # 6.6 10^3/uL (1.5-8.5); NEUTROPHILS % 76.4 % (36.0-66.0); PLATELET COUNT, AUTOMATED 245 10^3/uL (150-450); RED BLOOD COUNT 3.17 10^6/uL (4.30-6.10); WHITE BLOOD COUNT 8.7 10^3/uL (4.0-10.0)
[2022-08-31 14:17] LABS: CALCIUM LEVEL 8.9 MG/DL (8.5-10.1); CREATININE FOR GFR 12.87 MG/DL (0.70-1.30); GLOMERULAR FILTRATION RATE 4.5 (>60); POTASSIUM SERUM 8.3 MMOL/L (3.5-5.1)
[2022-08-31] MEDS ORDERED: SODIUM CHLORIDE 0.9% 1000ML IV PRN (14:30)
[2022-08-31] MEDS ORDERED: LIDOCAINE 1% SDV 5ML VIAL SC PRN (14:30)
[2022-08-31] MEDS ORDERED: CALCIUM GLUCONATE 1,000MG/10ML VIAL (100MG/ML) IV ONE (14:45)
[2022-08-31] MEDS ORDERED: SODIUM BICARBONATE 8.4% INJ 50ML SYRINGE IV ONE (14:45)
[2022-08-31] MEDS ORDERED: HumuLIN R (REGULAR) INSULIN (NovoLIN R) **100U/ML** PER UNIT IV ONE (14:45)
[2022-08-31] MEDS ORDERED: PATIROMER SORBITEX CALCIUM 8.4 GM POWDER PACKET (VELTASSA) PO ONE (14:45)
[2022-08-31] MEDS ORDERED: ALBUTEROL SULFATE 2.5MG/0.5ML INH NEB SOLN INH ONE (14:45)
[2022-08-31] MEDS ORDERED: DEXTROSE 50% 50ML SYRINGE IV ONE (14:45)
[2022-08-31] MEDS ORDERED: DEXTROSE 50% 50ML SYRINGE IV STA ×2 (14:55→15:47)
[2022-08-31] MEDS ORDERED: CARV3.12 PO (14:59)
[2022-08-31] MEDS ORDERED: HOME MED LIST COMPLETE! XX SCH (15:00)
[2022-08-31] MEDS ORDERED: HumuLIN R (REGULAR) INSULIN (NovoLIN R) **100U/ML** PER UNIT IV STA (15:47)
[2022-08-31] MEDS ORDERED: GLUCAGON INJ 1MG VIAL SC PRN (15:50)
[2022-08-31] MEDS ORDERED: ACETAMINOPHEN TAB 650MG DOSE (2X325MG) PO PRN (15:50)
[2022-08-31] MEDS ORDERED: CALCIUM GLUCONATE 1,000 MG in D5W MINI-BAG PLUS 100 ML IV ONE (15:50)
[2022-08-31] MEDS ORDERED: DEXTROSE 50% 50ML SYRINGE IV PRN (15:50)
[2022-08-31] MEDS ORDERED: GLUCOSE 4GM CHEW TABLET PO PRN (15:50)
[2022-08-31 16:22] LABS: RSV AMPLIFICATION NEGATIVE (NEGATIVE)
[2022-08-31 19:16] LABS: FREE T4 0.6 NG/DL (0.89-1.76); THYROID STIMULATING HORMONE 1.891 uIU/ML (0.55-4.78)
[2022-08-31 21:09] VITALS: BP 114/72
[2022-08-31] MEDS: HEPARIN SOD (PORCINE) 5000UNITS/ML 1ML VIAL/SYRINGE SC SCH (22:00)
[2022-08-31] MEDS: NICOTINE 14 MG/24 HR TRANSDERMAL TD SCH (22:00)
[2022-08-31] MEDS ORDERED: clonazePAM 1 MG TAB PO ONE (22:00)
[2022-08-31 22:59] LABS: ALBUMIN 3.1 G/DL (3.2-5.2); ALKALINE PHOSPHATASE 232 U/L (46-116); ALT/SGPT < 9 U/L (7.0-40); AST/SGOT 11 U/L (<34); BILIRUBIN,TOTAL 0.3 MG/DL (0.3-1.2); BLOOD UREA NITROGEN 25 MG/DL (9-23); CALCIUM LEVEL 9.2 MG/DL (8.5-10.1); CARBON DIOXIDE LEVEL 29 MMOL/L (20-31); CHLORIDE LEVEL 88 MMOL/L (98-107); CREATININE FOR GFR 5.22 MG/DL (0.70-1.30); GLOMERULAR FILTRATION RATE 12.8 (>60); GLUCOSE, FASTING 83 MG/DL (60-100); POTASSIUM SERUM 4.4 MMOL/L (3.5-5.1); SODIUM LEVEL 128 MMOL/L (136-145); TOTAL PROTEIN 6.7 G/DL (5.7-8.2)
[2022-08-31] MEDS: CARVedilol 3.125 MG TAB PO SCH (23:21)
[2022-09-01] VITALS: BP 99/64
[2022-09-01 04:00] VITALS: BP 114/58
[2022-09-01] MEDS: HEPARIN SOD (PORCINE) 5000UNITS/ML 1ML VIAL/SYRINGE SC SCH ×2 (05:14→14:00)
[2022-09-01 06:09] LABS: HEMATOCRIT 32.4 % (42.0-52.0); HEMOGLOBIN 10.9 g/dl (13.5-17.5); MEAN CORPUSCULAR HEMOGLOBIN 34.3 pg (27.0-33.0); MEAN CORPUSCULAR HGB CONC 33.6 g/dl (32.0-36.5); MEAN CORPUSCULAR VOLUME 101.9 fl (80.0-96.0); PLATELET COUNT, AUTOMATED 219 10^3/uL (150-450); RED BLOOD COUNT 3.18 10^6/uL (4.30-6.10); WHITE BLOOD COUNT 5.7 10^3/uL (4.0-10.0)
[2022-09-01 06:34] LABS: ALBUMIN 2.7 G/DL (3.2-5.2); ALKALINE PHOSPHATASE 244 U/L (46-116); ALT/SGPT < 9 U/L (7.0-40); AST/SGOT 13 U/L (<34); BILIRUBIN,TOTAL 0.2 MG/DL (0.3-1.2); BLOOD UREA NITROGEN 38 MG/DL (9-23); CALCIUM LEVEL 8.7 MG/DL (8.5-10.1); CARBON DIOXIDE LEVEL 29 MMOL/L (20-31); CHLORIDE LEVEL 89 MMOL/L (98-107); CREATININE FOR GFR 6.33 MG/DL (0.70-1.30); GLOMERULAR FILTRATION RATE 10.2 (>60); GLUCOSE, FASTING 59 MG/DL (60-100); POTASSIUM SERUM 5.5 MMOL/L (3.5-5.1); SODIUM LEVEL 126 MMOL/L (136-145); TOTAL PROTEIN 5.9 G/DL (5.7-8.2)
[2022-09-01 08:07] VITALS: BP 104/64
[2022-09-01] MEDS ORDERED: LIDOCAINE 1% SDV 5ML VIAL SC PRN (08:20)
[2022-09-01] MEDS ORDERED: SODIUM CHLORIDE 0.9% 1000ML IV PRN (08:20)
[2022-09-01] MEDS ORDERED: OMEPRAZOLE 20MG CAP PO SCH (09:00)
[2022-09-01] MEDS: NICOTINE 14 MG/24 HR TRANSDERMAL TD SCH (09:00)
[2022-09-01] MEDS: CARVedilol 3.125 MG TAB PO SCH (09:00)
[2022-09-01 11:26] VITALS: BP 103/51
[2022-09-01 13:03] VITALS: BP 101/59
[2022-09-01 14:27] LABS: CALCIUM LEVEL 9.5 MG/DL (8.5-10.1); CREATININE FOR GFR 2.72 MG/DL (0.70-1.30); GLOMERULAR FILTRATION RATE 27.1 (>60); POTASSIUM SERUM 4.5 MMOL/L (3.5-5.1)
[2022-09-01] MEDS ORDERED: METHADONE 10MG TAB PO ONE ×2 (15:35→16:00)
[2022-09-01] MEDS ORDERED: PILL CUTTER 1 EACH XX PRN (15:50)
== END 2022-09-01 15:54 | disposition home or self-care (01) | DRG 640 ==
LOC: M ED 11:56 → M ED INP 15:47 → M PCU 21:07
PROVIDERS: ADMIT Family Medicine; ATTEND Family Medicine
PROC: 5A1D70Z Performance of Urinary Filtration, Intermittent, Less than 6 Hours Per Day (ICD-10-PCS; principal; 2022-08-31)
DX: E87.5 Hyperkalemia (principal); N18.6 End stage renal disease; I12.0 Hypertensive chronic kidney disease with stage 5 chronic kidney disease or end stage renal disease; F11.20 Opioid dependence, uncomplicated; E87.20 Acidosis, unspecified; E87.1 Hypo-osmolality and hyponatremia; Z99.2 Dependence on renal dialysis; E16.2 Hypoglycemia, unspecified; I25.10 Atherosclerotic heart disease of native coronary artery without angina pectoris; B19.20 Unspecified viral hepatitis C without hepatic coma; E83.52 Hypercalcemia; F17.210 Nicotine dependence, cigarettes, uncomplicated; Z95.5 Presence of coronary angioplasty implant and graft; Z20.822 Contact with and (suspected) exposure to COVID-19; Z79.899 Other long term (current) drug therapy

== ENCOUNTER 2022-10-01 06:59 | Inpatient (IN) | payer OTHER, MEDICAID ==
[~2022-10-01] VITALS: Ht 165.1 cm; Wt 58.1 kg
[~2022-10-01 06:59] MED LIST changes: +CARV3.12 PO; +CONS10SO3
[2022-10-01 08:17] LABS: BASO # 0.1 10^3/uL (0.0-0.2); BASO % 0.4 % (0.0-1.0); EOS # 0.4 10^3/uL (0.0-0.5); EOS % 2.2 % (0.0-3.0); HEMATOCRIT 38.2 % (42.0-52.0); HEMOGLOBIN 12.4 g/dl (13.5-17.5); LYMPH # 0.8 10^3/uL (1.5-5.0); LYMPH % 4.8 % (24.0-44.0); MEAN CORPUSCULAR HEMOGLOBIN 33.6 pg (27.0-33.0); MEAN CORPUSCULAR HGB CONC 32.5 g/dl (32.0-36.5); MEAN CORPUSCULAR VOLUME 103.5 fl (80.0-96.0); MONO # 1.1 10^3/uL (0.0-0.8); MONO % 6.5 % (2.0-8.0); NEUTROPHILS # 14.6 10^3/uL (1.5-8.5); NEUTROPHILS % 85.6 % (36.0-66.0); PLATELET COUNT, AUTOMATED 206 10^3/uL (150-450); RED BLOOD COUNT 3.69 10^6/uL (4.30-6.10); WHITE BLOOD COUNT 17.1 10^3/uL (4.0-10.0)
[2022-10-01 08:44] LABS: CK-MB VALUE MASS 3.5 NG/ML (<3.6)
[2022-10-01 08:56] LABS: CALCIUM LEVEL 9.7 MG/DL (8.5-10.1); CREATININE FOR GFR 11.96 MG/DL (0.70-1.30); GLOMERULAR FILTRATION RATE 4.9 (>60); MB/CK RELATIVE INDEX 1.08 (< OR =4); POTASSIUM SERUM 6.1 MMOL/L (3.5-5.1)
[2022-10-01] MEDS: clonazePAM 1 MG TAB PO SCH ×2 (09:00→21:16)
[2022-10-01] MEDS: CARVedilol 3.125 MG TAB PO SCH ×2 (09:00→21:00)
[2022-10-01] MEDS: OMEPRAZOLE 20MG CAP PO SCH ×2 (09:00→17:03)
[2022-10-01] MEDS ORDERED: HumuLIN R (REGULAR) INSULIN (NovoLIN R) **100U/ML** PER UNIT IV ONE (09:10)
[2022-10-01] MEDS ORDERED: SODIUM BICARBONATE 8.4% INJ 50ML SYRINGE IV ONE (09:10)
[2022-10-01] MEDS ORDERED: CALCIUM CHLORIDE 10% 1 GM/10 ML SYR IV ONE (09:10)
[2022-10-01] MEDS ORDERED: DEXTROSE 50% 50ML SYRINGE IV ONE (09:10)
[2022-10-01] MEDS ORDERED: PATIROMER SORBITEX CALCIUM 8.4 GM POWDER PACKET (VELTASSA) PO ONE (09:10)
[2022-10-01 09:24] LABS: MB/CK RELATIVE INDEX 1.04 (< OR =4)
[2022-10-01 09:25] LABS: RSV AMPLIFICATION NEGATIVE (NEGATIVE)
[2022-10-01] MEDS ORDERED: EQL50TAB2 PO (10:22)
[2022-10-01] MEDS ORDERED: HOME MED LIST COMPLETE! XX SCH (10:25)
[2022-10-01] MEDS ORDERED: HEPARIN 1,000UNITS/ML 10ML VIAL (FOR RADIOLOGY & DIALYSIS ONLY) XX SCH (11:00)
[2022-10-01] MEDS ORDERED: HEPARIN 1,000UNITS/ML 10ML VIAL (FOR RADIOLOGY & DIALYSIS ONLY) IV PRN (11:00)
[2022-10-01] MEDS ORDERED: SODIUM CHLORIDE 0.9% 1000ML IV PRN (11:00)
[2022-10-01] MEDS ORDERED: ceFAZolin SOD 2 GM in IV 1 EA IV ONE (11:20)
[2022-10-01] MEDS ORDERED: fentaNYL 100 MCG/2 ML INJECTION As Ordered ONE (11:48)
[2022-10-01] MEDS ORDERED: LIDOCAINE 1% MDV 20ML VIAL As Ordered ONE (11:48)
[2022-10-01] MEDS ORDERED: MIDAZOLAM INJ 2MG/2ML VIAL IV ONE (11:48)
[2022-10-01] MEDS ORDERED: MIDAZOLAM INJ 2MG/2ML VIAL As Ordered ONE (11:48)
[2022-10-01] MEDS ORDERED: fentaNYL 100 MCG/2 ML INJECTION IV ONE (11:48)
[2022-10-01] MEDS ORDERED: HEPARIN 1,000UNITS/ML 10ML VIAL (FOR RADIOLOGY & DIALYSIS ONLY) As Ordered ONE (11:52)
[2022-10-01] MEDS ORDERED: ceFAZolin 2 GM/D5W 50 ML IV BAG As Ordered ONE (12:10)
[2022-10-01] MEDS: (RENVELA) SEVELAMER **CARBONate** 800 MG TAB PO SCH ×2 (12:30→17:03)
[2022-10-01 16:45] VITALS: BP 100/57
[2022-10-01] MEDS ORDERED: ONDANSETRON 4MG 2ML VIAL IV PRN (17:20)
[2022-10-01 19:56] VITALS: BP 107/67
[2022-10-02] VITALS (8 sets, daily range): BP systolic 90–99; BP diastolic 50–63
[2022-10-02 06:49] LABS: BASO # 0.1 10^3/uL (0.0-0.2); BASO % 0.8 % (0.0-1.0); EOS # 0.4 10^3/uL (0.0-0.5); EOS % 3.9 % (0.0-3.0); HEMATOCRIT 37.4 % (42.0-52.0); HEMOGLOBIN 12.6 g/dl (13.5-17.5); LYMPH # 1.2 10^3/uL (1.5-5.0); MEAN CORPUSCULAR HEMOGLOBIN 34.4 pg (27.0-33.0); MEAN CORPUSCULAR HGB CONC 33.7 g/dl (32.0-36.5); MEAN CORPUSCULAR VOLUME 102.2 fl (80.0-96.0); MONO # 0.8 10^3/uL (0.0-0.8); MONO % 8.4 % (2.0-8.0); NEUTROPHILS # 6.7 10^3/uL (1.5-8.5); NEUTROPHILS % 73.5 % (36.0-66.0); PLATELET COUNT, AUTOMATED 170 10^3/uL (150-450); RED BLOOD COUNT 3.66 10^6/uL (4.30-6.10); WHITE BLOOD COUNT 9.1 10^3/uL (4.0-10.0)
[2022-10-02 07:18] LABS: CALCIUM LEVEL 9.2 MG/DL (8.5-10.1); CREATININE FOR GFR 7.4 MG/DL (0.70-1.30); GLOMERULAR FILTRATION RATE 8.5 (>60); POTASSIUM SERUM 4.9 MMOL/L (3.5-5.1)
[2022-10-02] MEDS: CARVedilol 3.125 MG TAB PO SCH ×2 (09:00→20:19)
[2022-10-02] MEDS: METHADONE 10MG TAB PO SCH (09:15)
[2022-10-02] MEDS: clonazePAM 1 MG TAB PO SCH ×2 (09:16→20:25)
[2022-10-02] MEDS: OMEPRAZOLE 20MG CAP PO SCH (09:16)
[2022-10-02] MEDS: (RENVELA) SEVELAMER **CARBONate** 800 MG TAB PO SCH ×3 (09:16→19:21)
[2022-10-02] MEDS: METHADONE 5MG TAB PO SCH (09:16)
[2022-10-03 03:58] VITALS: BP 90/52
[2022-10-03 05:30] LABS: BASO # 0.1 10^3/uL (0.0-0.2); BASO % 0.5 % (0.0-1.0); EOS # 0.4 10^3/uL (0.0-0.5); EOS % 3.3 % (0.0-3.0); HEMATOCRIT 35.5 % (42.0-52.0); HEMOGLOBIN 11.7 g/dl (13.5-17.5); LYMPH # 1.2 10^3/uL (1.5-5.0); LYMPH % 9.3 % (24.0-44.0); MEAN CORPUSCULAR VOLUME 103.2 fl (80.0-96.0); MONO % 7.3 % (2.0-8.0); NEUTROPHILS # 10.4 10^3/uL (1.5-8.5); NEUTROPHILS % 79.2 % (36.0-66.0); PLATELET COUNT, AUTOMATED 183 10^3/uL (150-450); RED BLOOD COUNT 3.44 10^6/uL (4.30-6.10); WHITE BLOOD COUNT 13.1 10^3/uL (4.0-10.0)
[2022-10-03 05:53] LABS: CALCIUM LEVEL 8.8 MG/DL (8.5-10.1); CREATININE FOR GFR 9.52 MG/DL (0.70-1.30); GLOMERULAR FILTRATION RATE 6.4 (>60); POTASSIUM SERUM 5.1 MMOL/L (3.5-5.1)
[2022-10-03] MEDS ORDERED: HEPARIN 1,000UNITS/ML 10ML VIAL (FOR RADIOLOGY & DIALYSIS ONLY) IV PRN (06:00)
[2022-10-03] MEDS ORDERED: HEPARIN 1,000UNITS/ML 10ML VIAL (FOR RADIOLOGY & DIALYSIS ONLY) XX SCH (06:00)
[2022-10-03] MEDS ORDERED: SODIUM CHLORIDE 0.9% 1000ML IV PRN (06:00)
[2022-10-03] MEDS: OMEPRAZOLE 20MG CAP PO SCH (06:19)
[2022-10-03 07:10] VITALS: BP 97/57
[2022-10-03] MEDS: METHADONE 5MG TAB PO SCH (07:37)
[2022-10-03] MEDS: METHADONE 10MG TAB PO SCH (07:37)
[2022-10-03] MEDS: (RENVELA) SEVELAMER **CARBONate** 800 MG TAB PO SCH ×3 (08:00→18:00)
[2022-10-03] MEDS: CARVedilol 3.125 MG TAB PO SCH ×2 (09:00→20:37)
[2022-10-03 12:00] VITALS: BP 97/42
[2022-10-03] MEDS: clonazePAM 1 MG TAB PO SCH ×3 (12:54→20:38)
[2022-10-03 16:20] VITALS: BP 115/73
[2022-10-03 19:39] VITALS: BP 122/52
[2022-10-03 23:45] VITALS: BP 95/54
[2022-10-04 03:56] VITALS: BP 97/48
[2022-10-04 06:15] LABS: BASO # 0.1 10^3/uL (0.0-0.2); BASO % 0.7 % (0.0-1.0); EOS # 0.3 10^3/uL (0.0-0.5); EOS % 3.2 % (0.0-3.0); HEMATOCRIT 39.3 % (42.0-52.0); LYMPH # 1.1 10^3/uL (1.5-5.0); LYMPH % 10.3 % (24.0-44.0); MEAN CORPUSCULAR HEMOGLOBIN 34.2 pg (27.0-33.0); MEAN CORPUSCULAR HGB CONC 33.1 g/dl (32.0-36.5); MEAN CORPUSCULAR VOLUME 103.4 fl (80.0-96.0); MONO # 0.9 10^3/uL (0.0-0.8); MONO % 8.9 % (2.0-8.0); NEUTROPHILS # 8.1 10^3/uL (1.5-8.5); NEUTROPHILS % 76.5 % (36.0-66.0); PLATELET COUNT, AUTOMATED 180 10^3/uL (150-450); WHITE BLOOD COUNT 10.6 10^3/uL (4.0-10.0)
[2022-10-04 06:54] LABS: CALCIUM LEVEL 9.4 MG/DL (8.5-10.1); CREATININE FOR GFR 6.3 MG/DL (0.70-1.30); GLOMERULAR FILTRATION RATE 10.3 (>60); POTASSIUM SERUM 4.8 MMOL/L (3.5-5.1)
[2022-10-04 07:28] VITALS: BP 104/53
[2022-10-04] MEDS: CARVedilol 3.125 MG TAB PO SCH ×2 (08:24→21:16)
[2022-10-04] MEDS: METHADONE 5MG TAB PO SCH (08:38)
[2022-10-04] MEDS: (RENVELA) SEVELAMER **CARBONate** 800 MG TAB PO SCH ×3 (08:38→17:41)
[2022-10-04] MEDS: OMEPRAZOLE 20MG CAP PO SCH (08:38)
[2022-10-04] MEDS: clonazePAM 1 MG TAB PO SCH ×2 (08:38→21:16)
[2022-10-04] MEDS: METHADONE 10MG TAB PO SCH (08:38)
[2022-10-04 11:46] VITALS: BP 111/55
[2022-10-04 20:40] VITALS: BP 137/65
[2022-10-05 06:00] VITALS: BP 102/55
[2022-10-05 07:23] LABS: BASO # 0.1 10^3/uL (0.0-0.2); BASO % 0.4 % (0.0-1.0); EOS # 0.3 10^3/uL (0.0-0.5); EOS % 2.3 % (0.0-3.0); HEMATOCRIT 35.4 % (42.0-52.0); HEMOGLOBIN 11.7 g/dl (13.5-17.5); LYMPH % 8.1 % (24.0-44.0); MEAN CORPUSCULAR HEMOGLOBIN 33.7 pg (27.0-33.0); MEAN CORPUSCULAR HGB CONC 33.1 g/dl (32.0-36.5); MONO % 12.4 % (2.0-8.0); NEUTROPHILS # 9.8 10^3/uL (1.5-8.5); NEUTROPHILS % 76.3 % (36.0-66.0); PLATELET COUNT, AUTOMATED 172 10^3/uL (150-450); RED BLOOD COUNT 3.47 10^6/uL (4.30-6.10); WHITE BLOOD COUNT 12.8 10^3/uL (4.0-10.0)
[2022-10-05 07:40] LABS: MONO # 1.6 10^3/uL (0.0-0.8)
[2022-10-05 08:04] LABS: CALCIUM LEVEL 9.5 MG/DL (8.5-10.1); CREATININE FOR GFR 8.15 MG/DL (0.70-1.30); GLOMERULAR FILTRATION RATE 7.6 (>60); POTASSIUM SERUM 5.2 MMOL/L (3.5-5.1)
[2022-10-05] MEDS: CARVedilol 3.125 MG TAB PO SCH ×2 (08:22→20:35)
[2022-10-05] MEDS: (RENVELA) SEVELAMER **CARBONate** 800 MG TAB PO SCH ×3 (08:31→17:17)
[2022-10-05] MEDS: METHADONE 5MG TAB PO SCH (08:32)
[2022-10-05] MEDS: METHADONE 10MG TAB PO SCH (08:32)
[2022-10-05] MEDS: clonazePAM 1 MG TAB PO SCH ×2 (08:32→20:34)
[2022-10-05] MEDS: OMEPRAZOLE 20MG CAP PO SCH (08:32)
[2022-10-05] MEDS ORDERED: HEPARIN 1,000UNITS/ML 10ML VIAL (FOR RADIOLOGY & DIALYSIS ONLY) IV PRN (11:35)
[2022-10-05] MEDS ORDERED: SODIUM CHLORIDE 0.9% 1000ML IV PRN (11:35)
[2022-10-05] MEDS ORDERED: HEPARIN 1,000UNITS/ML 10ML VIAL (FOR RADIOLOGY & DIALYSIS ONLY) XX SCH (11:35)
[2022-10-05 17:17] VITALS: BP 100/55
[2022-10-05 21:00] VITALS: BP 131/66
[2022-10-05 22:00] VITALS: BP 123/66
[2022-10-06 05:57] VITALS: BP 118/54
[2022-10-06 06:17] LABS: BASO # 0.1 10^3/uL (0.0-0.2); BASO % 0.7 % (0.0-1.0); EOS # 0.4 10^3/uL (0.0-0.5); EOS % 5.2 % (0.0-3.0); HEMATOCRIT 36.5 % (42.0-52.0); HEMOGLOBIN 11.6 g/dl (13.5-17.5); LYMPH % 13.3 % (24.0-44.0); MEAN CORPUSCULAR HEMOGLOBIN 33.4 pg (27.0-33.0); MEAN CORPUSCULAR HGB CONC 31.8 g/dl (32.0-36.5); MEAN CORPUSCULAR VOLUME 105.2 fl (80.0-96.0); MONO # 1.2 10^3/uL (0.0-0.8); MONO % 16.1 % (2.0-8.0); NEUTROPHILS % 64.4 % (36.0-66.0); PLATELET COUNT, AUTOMATED 169 10^3/uL (150-450); RED BLOOD COUNT 3.47 10^6/uL (4.30-6.10); WHITE BLOOD COUNT 7.7 10^3/uL (4.0-10.0)
[2022-10-06 06:30] LABS: CALCIUM LEVEL 9.6 MG/DL (8.5-10.1); CREATININE FOR GFR 6.23 MG/DL (0.70-1.30); GLOMERULAR FILTRATION RATE 10.4 (>60); POTASSIUM SERUM 5.2 MMOL/L (3.5-5.1)
[2022-10-06 07:31] VITALS: BP 130/63
[2022-10-06] MEDS: (RENVELA) SEVELAMER **CARBONate** 800 MG TAB PO SCH ×3 (07:55→19:24)
[2022-10-06] MEDS: OMEPRAZOLE 20MG CAP PO SCH (08:17)
[2022-10-06] MEDS: clonazePAM 1 MG TAB PO SCH ×2 (08:17→20:24)
[2022-10-06] MEDS: CARVedilol 3.125 MG TAB PO SCH ×2 (08:19→20:23)
[2022-10-06] MEDS: METHADONE 5MG TAB PO SCH (08:19)
[2022-10-06] MEDS: METHADONE 10MG TAB PO SCH (08:19)
[2022-10-06 09:59] LABS: INR 0.96
[2022-10-06 10:00] LABS: PARTIAL THROMBOPLASTIN TIME 25.9 SECONDS (24.8-34.2)
[2022-10-06 14:00] VITALS: BP 102/62
[2022-10-06] MEDS ORDERED: ISOVUE-300 61% 100ML VIAL As Ordered ONE (16:28)
[2022-10-06] MEDS ORDERED: MIDAZOLAM INJ 2MG/2ML VIAL As Ordered ONE ×2 (16:28→18:24)
[2022-10-06] MEDS ORDERED: fentaNYL 100 MCG/2 ML INJECTION As Ordered ONE ×2 (16:28→18:24)
[2022-10-06] MEDS ORDERED: HEPARIN 1,000UNITS/ML 10ML VIAL (FOR RADIOLOGY & DIALYSIS ONLY) As Ordered ONE (16:29)
[2022-10-06] MEDS ORDERED: LIDOCAINE 1% MDV 20ML VIAL As Ordered ONE (16:29)
[2022-10-06] MEDS ORDERED: ceFAZolin 2 GM/D5W 50 ML IV BAG As Ordered ONE (17:11)
[2022-10-06] MEDS ORDERED: ALTEPLASE 2MG/2ML VIAL As Ordered ONE (17:26)
[2022-10-06 19:17] VITALS: BP 114/69
[2022-10-07 05:31] VITALS: BP 97/56
[2022-10-07 06:20] LABS: BASO # 0.1 10^3/uL (0.0-0.2); BASO % 0.9 % (0.0-1.0); EOS # 0.4 10^3/uL (0.0-0.5); HEMATOCRIT 34.1 % (42.0-52.0); HEMOGLOBIN 11.1 g/dl (13.5-17.5); LYMPH # 0.9 10^3/uL (1.5-5.0); MEAN CORPUSCULAR HEMOGLOBIN 33.5 pg (27.0-33.0); MEAN CORPUSCULAR HGB CONC 32.6 g/dl (32.0-36.5); MONO # 1.1 10^3/uL (0.0-0.8); MONO % 16.1 % (2.0-8.0); NEUTROPHILS # 4.4 10^3/uL (1.5-8.5); NEUTROPHILS % 63.7 % (36.0-66.0); PLATELET COUNT, AUTOMATED 176 10^3/uL (150-450); RED BLOOD COUNT 3.31 10^6/uL (4.30-6.10); WHITE BLOOD COUNT 6.9 10^3/uL (4.0-10.0)
[2022-10-07 06:51] LABS: CREATININE FOR GFR 7.86 MG/DL (0.70-1.30); POTASSIUM SERUM 5.1 MMOL/L (3.5-5.1)
[2022-10-07] MEDS ORDERED: HEPARIN 1,000UNITS/ML 10ML VIAL (FOR RADIOLOGY & DIALYSIS ONLY) XX SCH (08:05)
[2022-10-07] MEDS ORDERED: SODIUM CHLORIDE 0.9% 1000ML IV PRN (08:05)
[2022-10-07] MEDS ORDERED: HEPARIN 1,000UNITS/ML 10ML VIAL (FOR RADIOLOGY & DIALYSIS ONLY) IV PRN (08:05)
[2022-10-07] MEDS ORDERED: LIDOCAINE 1% SDV 5ML VIAL SC PRN (08:05)
[2022-10-07 08:56] VITALS: BP 100/61
[2022-10-07] MEDS: (RENVELA) SEVELAMER **CARBONate** 800 MG TAB PO SCH ×2 (08:56→12:03)
[2022-10-07] MEDS: CARVedilol 3.125 MG TAB PO SCH (08:56)
[2022-10-07] MEDS: METHADONE 10MG TAB PO SCH (08:57)
[2022-10-07] MEDS: clonazePAM 1 MG TAB PO SCH (08:57)
[2022-10-07] MEDS: METHADONE 5MG TAB PO SCH (08:57)
[2022-10-07] MEDS: OMEPRAZOLE 20MG CAP PO SCH (08:58)
[2022-10-07 09:50] VITALS: BP 95/50
[2022-10-07] MEDS ORDERED: KLON2TAB PO (11:18)
[2022-10-07] MEDS ORDERED: ASPI81TAEC PO (11:18)
[2022-10-07] MEDS ORDERED: CRES10TA PO (11:18)
[2022-10-07] MEDS ORDERED: BLOOKIT XX (11:25)
[2022-10-07] MEDS ORDERED: MIDO5TA PO (11:26)
== END 2022-10-07 17:00 | disposition home or self-care (01) | DRG 270 ==
LOC: M ED 06:59 → M ED INP 10:31 → ENRESERV 12:27 → M PCU 16:41 → M MS5PR 10-04 17:49
PROVIDERS: ADMIT Internal Medicine Nephrology; ATTEND Internal Medicine
PROC: 06H033Z Insertion of Infusion Device into Inferior Vena Cava, Percutaneous Approach (ICD-10-PCS; 2022-10-01)
PROC: 5A1D70Z Performance of Urinary Filtration, Intermittent, Less than 6 Hours Per Day (ICD-10-PCS; 2022-10-01)
PROC: 067M3ZZ Dilation of Right Femoral Vein, Percutaneous Approach (ICD-10-PCS; 2022-10-06)
PROC: 3E03317 Introduction of Other Thrombolytic into Peripheral Vein, Percutaneous Approach (ICD-10-PCS; 2022-10-06)
PROC: 06CN3ZZ Extirpation of Matter from Left Femoral Vein, Percutaneous Approach (ICD-10-PCS; principal; 2022-10-06 10:00)
DX: T82.590A Other mechanical complication of surgically created arteriovenous fistula, initial encounter (principal); N18.6 End stage renal disease; E87.20 Acidosis, unspecified; F11.10 Opioid abuse, uncomplicated; D64.9 Anemia, unspecified; I25.10 Atherosclerotic heart disease of native coronary artery without angina pectoris; E21.2 Other hyperparathyroidism; Z95.5 Presence of coronary angioplasty implant and graft; D72.829 Elevated white blood cell count, unspecified; E87.5 Hyperkalemia; Z79.891 Long term (current) use of opiate analgesic; Z95.1 Presence of aortocoronary bypass graft; I95.89 Other hypotension; Z99.2 Dependence on renal dialysis; F41.9 Anxiety disorder, unspecified; F32.A Depression, unspecified; Z79.899 Other long term (current) drug therapy; Z79.82 Long term (current) use of aspirin; K59.00 Constipation, unspecified; B19.20 Unspecified viral hepatitis C without hepatic coma; I73.9 Peripheral vascular disease, unspecified; G25.3 Myoclonus; Y83.2 Surgical operation with anastomosis, bypass or graft as the cause of abnormal reaction of the patient, or of later complication, without mention of misadventure at the time of the procedure

== ENCOUNTER 2022-10-19 20:06 | Observation (INO) | payer OTHER, MEDICAID ==
[~2022-10-19] VITALS: Ht 165.1 cm; Wt 55.5 kg
[~2022-10-19 20:06] MED LIST changes: +ASPI81TAEC PO; +BLOOKIT XX; +CRES10TA PO; +EQL50TAB2 PO; +MIDO5TA PO
[2022-10-19 21:43] LABS: BASO # 0.1 10^3/uL (0.0-0.2); BASO % 0.6 % (0.0-1.0); EOS # 0.4 10^3/uL (0.0-0.5); EOS % 4.1 % (0.0-3.0); LYMPH % 9.4 % (24.0-44.0); MEAN CORPUSCULAR HEMOGLOBIN 33.5 pg (27.0-33.0); MEAN CORPUSCULAR HGB CONC 32.4 g/dl (32.0-36.5); MEAN CORPUSCULAR VOLUME 103.4 fl (80.0-96.0); MONO % 9.2 % (2.0-8.0); NEUTROPHILS # 8.2 10^3/uL (1.5-8.5); NEUTROPHILS % 76.3 % (36.0-66.0); PLATELET COUNT, AUTOMATED 286 10^3/uL (150-450); RED BLOOD COUNT 3.58 10^6/uL (4.30-6.10); WHITE BLOOD COUNT 10.7 10^3/uL (4.0-10.0)
[2022-10-19 21:54] LABS: INR 1.03; PROTHROMBIN TIME 13.7 SECONDS (12.5-14.5)
[2022-10-19 21:55] LABS: PARTIAL THROMBOPLASTIN TIME 30.7 SECONDS (24.8-34.2)
[2022-10-19 22:05] LABS: CK-MB VALUE MASS 2.5 NG/ML (<3.6)
[2022-10-19 22:06] LABS: LIPASE 41 U/L (12-53)
[2022-10-19 22:31] LABS: ALBUMIN 3.4 G/DL (3.2-5.2); ALKALINE PHOSPHATASE 277 U/L (46-116); ALT/SGPT 11 U/L (7.0-40); AST/SGOT 23 U/L (<34); BILIRUBIN,DIRECT < 0.1 MG/DL (<0.4); BILIRUBIN,TOTAL 0.2 MG/DL (0.3-1.2); BLOOD UREA NITROGEN 52 MG/DL (9-23); CALCIUM LEVEL 10.2 MG/DL (8.5-10.1); CARBON DIOXIDE LEVEL 22 MMOL/L (20-31); CHLORIDE LEVEL 98 MMOL/L (98-107); CPK CREATINE PHOSPHOKINASE 329 U/L (46-171); CREATININE FOR GFR 9.73 MG/DL (0.70-1.30); GLOMERULAR FILTRATION RATE 6.2 (>60); GLUCOSE, FASTING 103 MG/DL (60-100); MB/CK RELATIVE INDEX 0.75 (< OR =4); POTASSIUM SERUM 5.2 MMOL/L (3.5-5.1); SODIUM LEVEL 134 MMOL/L (136-145); TOTAL PROTEIN 6.9 G/DL (5.7-8.2)
[2022-10-19] MEDS ORDERED: LACTULOSE 20GM/30ML SYRUP UDC PO ONE (23:35)
[2022-10-20 00:37] LABS: CK-MB VALUE MASS 2.9 NG/ML (<3.6)
[2022-10-20 00:39] LABS: MB/CK RELATIVE INDEX 0.47 (< OR =4)
[2022-10-20 00:55] VITALS: BP 120/80
[2022-10-20] MEDS ORDERED: BACLOFEN 10 MG TAB PO ONE (01:05)
[2022-10-20] MEDS ORDERED: CARV6.25 PO (01:14)
[2022-10-20] MEDS ORDERED: MIDO5TA PO (01:14)
[2022-10-20] MEDS ORDERED: ROSU10TA6 PO (01:14)
[2022-10-20] MEDS ORDERED: NEPH1TAB PO (01:14)
[2022-10-20] MEDS ORDERED: ASPI-161 PO (01:14)
[2022-10-20] MEDS ORDERED: HOME MED LIST COMPLETE! XX SCH ×2 (01:15→12:30)
[2022-10-20] MEDS ORDERED: SINEMET 12.5MG/50MG PER 1/2 TABLET PO ONE (01:25)
[2022-10-20] MEDS ORDERED: ACETAMINOPHEN TAB 650MG DOSE (2X325MG) PO PRN (01:35)
[2022-10-20] MEDS ORDERED: MIDODRINE 5 MG TAB PO PRN (01:35)
[2022-10-20] MEDS ORDERED: SINEMET 25-100 MG TAB PO ONE (02:00)
[2022-10-20 04:17] VITALS: BP 114/74
[2022-10-20] MEDS ORDERED: CLON2TAB7 PO (06:37)
[2022-10-20 07:03] LABS: CALCIUM LEVEL 9.9 MG/DL (8.5-10.1); CREATININE FOR GFR 10.23 MG/DL (0.70-1.30); GLOMERULAR FILTRATION RATE 5.9 (>60); POTASSIUM SERUM 4.8 MMOL/L (3.5-5.1)
[2022-10-20 07:33] VITALS: BP 116/69
[2022-10-20] MEDS ORDERED: LIDOCAINE 1% SDV 5ML VIAL SC PRN (08:20)
[2022-10-20] MEDS ORDERED: SODIUM CHLORIDE 0.9% 1000ML IV PRN (08:20)
[2022-10-20] MEDS ORDERED: HEPARIN 1,000UNITS/ML 10ML VIAL (FOR RADIOLOGY & DIALYSIS ONLY) XX SCH (08:20)
[2022-10-20] MEDS ORDERED: HEPARIN 1,000UNITS/ML 10ML VIAL (FOR RADIOLOGY & DIALYSIS ONLY) IV PRN (08:20)
[2022-10-20 10:19] LABS: PHOSPHORUS LEVEL 8.4 MG/DL (2.5-4.9)
[2022-10-20] MEDS: METHADONE 10MG TAB PO SCH (12:27)
[2022-10-20] MEDS: (RENVELA) SEVELAMER **CARBONate** 800 MG TAB PO SCH ×2 (14:44→17:32)
[2022-10-20 14:45] VITALS: BP 112/72
[2022-10-20] MEDS: CARVedilol 6.25 MG TAB PO SCH ×2 (14:55→20:55)
[2022-10-20] MEDS: OMEPRAZOLE 20MG CAP PO SCH (14:58)
[2022-10-20] MEDS: ROSUVASTATIN 10 MG TAB (CRESTOR) PO SCH (14:58)
[2022-10-20] MEDS: ASPIRIN 81MG ENTERIC TABLET PO SCH (14:59)
[2022-10-20] MEDS: clonazePAM 1 MG TAB PO PRN (15:00)
[2022-10-20 15:55] VITALS: BP 107/73
[2022-10-20 19:28] VITALS: BP 111/73
[2022-10-21 03:23] VITALS: BP 100/61
[2022-10-21 06:02] LABS: HEMATOCRIT 36.4 % (42.0-52.0); HEMOGLOBIN 12.1 g/dl (13.5-17.5); MEAN CORPUSCULAR HEMOGLOBIN 34.2 pg (27.0-33.0); MEAN CORPUSCULAR HGB CONC 33.2 g/dl (32.0-36.5); MEAN CORPUSCULAR VOLUME 102.8 fl (80.0-96.0); PLATELET COUNT, AUTOMATED 240 10^3/uL (150-450); RED BLOOD COUNT 3.54 10^6/uL (4.30-6.10); WHITE BLOOD COUNT 6.6 10^3/uL (4.0-10.0)
[2022-10-21 06:22] LABS: ALBUMIN 2.9 G/DL (3.2-5.2); CREATININE FOR GFR 6.87 MG/DL (0.70-1.30); GLOMERULAR FILTRATION RATE 9.3 (>60); PHOSPHORUS LEVEL 8.4 MG/DL (2.5-4.9)
[2022-10-21 07:59] VITALS: BP 101/61
[2022-10-21] MEDS ORDERED: (RENVELA) SEVELAMER **CARBONate** 800 MG TAB PO SCH (08:00)
[2022-10-21] MEDS ORDERED: PILL CUTTER 1 EACH XX ONE (08:29)
[2022-10-21] MEDS: OMEPRAZOLE 20MG CAP PO SCH (08:38)
[2022-10-21] MEDS: ROSUVASTATIN 10 MG TAB (CRESTOR) PO SCH (08:38)
[2022-10-21] MEDS: METHADONE 10MG TAB PO SCH (08:38)
[2022-10-21] MEDS: ASPIRIN 81MG ENTERIC TABLET PO SCH (08:38)
[2022-10-21 09:00] VITALS: BP 101/61
[2022-10-21] MEDS: CARVedilol 6.25 MG TAB PO SCH (09:00)
[2022-10-21] MEDS: clonazePAM 1 MG TAB PO PRN (11:36)
[2022-10-21 11:48] VITALS: BP 101/63
== END 2022-10-21 13:09 | disposition short-term general hospital (02) ==
LOC: M ED 20:06 → M ED INP 10-20 00:03 → M PCU 10-20 00:52
PROVIDERS: ADMIT Internal Medicine; ATTEND Internal Medicine
DX: T82.868A Thrombosis due to vascular prosthetic devices, implants and grafts, initial encounter (principal); N18.6 End stage renal disease; R74.8 Abnormal levels of other serum enzymes; R00.0 Tachycardia, unspecified; N25.81 Secondary hyperparathyroidism of renal origin; I25.10 Atherosclerotic heart disease of native coronary artery without angina pectoris; Z95.1 Presence of aortocoronary bypass graft; F17.210 Nicotine dependence, cigarettes, uncomplicated; F11.10 Opioid abuse, uncomplicated; Z79.891 Long term (current) use of opiate analgesic; Z79.82 Long term (current) use of aspirin; Z79.899 Other long term (current) drug therapy; E83.39 Other disorders of phosphorus metabolism; D64.9 Anemia, unspecified; K74.60 Unspecified cirrhosis of liver
CPT/HCPCS: 36415; 36569; 80048; 80076; 82140; 82550; 82553; 83605; 83690; 84100; 84443; 84484; 85025; 85610; 85730; 87040; 87486; 87581; 87633; 87798; 93005; 93041; 99285; C1752; G0257

== ENCOUNTER 2022-10-23 15:40 | Inpatient (IN) | payer OTHER, MEDICAID ==
[~2022-10-23] VITALS: Ht 165.1 cm; Wt 59.2 kg
[~2022-10-23 15:40] MED LIST changes: +ASPI-161 PO; +NEPH1TAB PO; +ROSU10TA6 PO
[2022-10-24 05:30] VITALS: BP 94/58
[2022-10-24] MEDS ORDERED: MOM 30ML SUSPENSION UDC PO PRN (05:40)
[2022-10-24] MEDS ORDERED: HOME MED LIST COMPLETE! XX SCH (06:20)
[2022-10-24] MEDS ORDERED: MIDODRINE 5 MG TAB PO PRN (06:30)
[2022-10-24 06:50] LABS: HEMATOCRIT 35.4 % (42.0-52.0); HEMOGLOBIN 11.8 g/dl (13.5-17.5); MEAN CORPUSCULAR HEMOGLOBIN 33.5 pg (27.0-33.0); MEAN CORPUSCULAR HGB CONC 33.3 g/dl (32.0-36.5); MEAN CORPUSCULAR VOLUME 100.6 fl (80.0-96.0); PLATELET COUNT, AUTOMATED 188 10^3/uL (150-450); RED BLOOD COUNT 3.52 10^6/uL (4.30-6.10)
[2022-10-24 07:13] LABS: CALCIUM LEVEL 9.3 MG/DL (8.5-10.1); CREATININE FOR GFR 8.92 MG/DL (0.70-1.30); GLOMERULAR FILTRATION RATE 6.9 (>60); POTASSIUM SERUM 5.2 MMOL/L (3.5-5.1)
[2022-10-24] MEDS ORDERED: HEPARIN 1,000UNITS/ML 10ML VIAL (FOR RADIOLOGY & DIALYSIS ONLY) XX SCH (07:20)
[2022-10-24] MEDS ORDERED: HEPARIN 1,000UNITS/ML 10ML VIAL (FOR RADIOLOGY & DIALYSIS ONLY) IV PRN (07:20)
[2022-10-24] MEDS ORDERED: SODIUM CHLORIDE 0.9% 1000ML IV PRN (07:20)
[2022-10-24 07:41] VITALS: BP 98/62
[2022-10-24 07:54] VITALS: BP 98/62
[2022-10-24] MEDS ORDERED: CARVedilol 6.25 MG TAB PO SCH (09:00)
[2022-10-24] MEDS ORDERED: ROSUVASTATIN 10 MG TAB (CRESTOR) PO SCH (09:00)
[2022-10-24] MEDS ORDERED: OMEPRAZOLE 20MG CAP PO SCH (09:00)
[2022-10-24] MEDS ORDERED: DOCUSATE SODIUM 100MG CAPSULE PO SCH (09:00)
[2022-10-24 12:35] VITALS: BP 107/60
[2022-10-24] MEDS ORDERED: SELF1KIT MC (13:49)
[2022-10-24] MEDS ORDERED: HEPARIN SOD (PORCINE) 5000UNITS/ML 1ML VIAL/SYRINGE SC SCH (14:00)
[2022-10-24] MEDS ORDERED: METHADONE 10MG TAB PO ONE (14:15)
== END 2022-10-24 15:22 | disposition home or self-care (01) | DRG 683 ==
LOC: ENRESERV 15:42 → M PCU 10-24 05:37
PROVIDERS: ADMIT Family Medicine; ATTEND Family Medicine
PROC: 5A1D70Z Performance of Urinary Filtration, Intermittent, Less than 6 Hours Per Day (ICD-10-PCS; principal; 2022-10-24)
DX: N18.6 End stage renal disease (principal); E87.1 Hypo-osmolality and hyponatremia; N25.81 Secondary hyperparathyroidism of renal origin; K74.60 Unspecified cirrhosis of liver; I25.10 Atherosclerotic heart disease of native coronary artery without angina pectoris; K73.9 Chronic hepatitis, unspecified; D64.9 Anemia, unspecified; F11.90 Opioid use, unspecified, uncomplicated; F17.210 Nicotine dependence, cigarettes, uncomplicated; I12.0 Hypertensive chronic kidney disease with stage 5 chronic kidney disease or end stage renal disease; E87.5 Hyperkalemia; K21.9 Gastro-esophageal reflux disease without esophagitis; E78.5 Hyperlipidemia, unspecified; Z59.00 Homelessness unspecified; Z99.2 Dependence on renal dialysis; Z79.82 Long term (current) use of aspirin; Z79.899 Other long term (current) drug therapy; Z95.5 Presence of coronary angioplasty implant and graft

== ENCOUNTER 2022-11-24 15:25 | Observation (INO) | payer MEDICARE, MEDICAID ==
[~2022-11-24] VITALS: Ht 165.1 cm; Wt 55.5 kg
[~2022-11-24 15:25] MED LIST changes: +SELF1KIT MC
[2022-11-24 17:41] LABS: BASO # 0.1 10^3/uL (0.0-0.2); BASO % 0.9 % (0.0-1.0); EOS # 0.2 10^3/uL (0.0-0.5); HEMATOCRIT 39.5 % (42.0-52.0); HEMOGLOBIN 12.7 g/dl (13.5-17.5); LYMPH # 1.2 10^3/uL (1.5-5.0); LYMPH % 13.1 % (24.0-44.0); MEAN CORPUSCULAR HEMOGLOBIN 33.1 pg (27.0-33.0); MEAN CORPUSCULAR HGB CONC 32.2 g/dl (32.0-36.5); MEAN CORPUSCULAR VOLUME 102.9 fl (80.0-96.0); MONO % 10.9 % (2.0-8.0); NEUTROPHILS # 6.8 10^3/uL (1.5-8.5); NEUTROPHILS % 72.8 % (36.0-66.0); PLATELET COUNT, AUTOMATED 293 10^3/uL (150-450); RED BLOOD COUNT 3.84 10^6/uL (4.30-6.10); WHITE BLOOD COUNT 9.3 10^3/uL (4.0-10.0)
[2022-11-24 18:18] LABS: MAGNESIUM LEVEL 2.5 MG/DL (1.8-2.4); PHOSPHORUS LEVEL 10.9 MG/DL (2.5-4.9)
[2022-11-24 19:08] LABS: ALBUMIN 3.8 G/DL (3.2-5.2); ALKALINE PHOSPHATASE 247 U/L (46-116); ALT/SGPT 11 U/L (7.0-40); AST/SGOT < 8 U/L (<34); BILIRUBIN,DIRECT < 0.1 MG/DL (<0.4); BILIRUBIN,TOTAL < 0.2 MG/DL (0.3-1.2); BLOOD UREA NITROGEN 88 MG/DL (9-23); CALCIUM LEVEL 10.7 MG/DL (8.5-10.1); CARBON DIOXIDE LEVEL 17 MMOL/L (20-31); CHLORIDE LEVEL 98 MMOL/L (98-107); CREATININE FOR GFR 16.41 MG/DL (0.70-1.30); GLOMERULAR FILTRATION RATE 3.4 (>60); GLUCOSE, FASTING 41 MG/DL (60-100); POTASSIUM SERUM 7.6 MMOL/L (3.5-5.1); SODIUM LEVEL 133 MMOL/L (136-145); THYROID STIMULATING HORMONE 1.711 uIU/ML (0.55-4.78); TOTAL PROTEIN 7.3 G/DL (5.7-8.2)
[2022-11-24] MEDS ORDERED: SODIUM BICARBONATE 8.4% INJ 50ML SYRINGE IV ONE (19:20)
[2022-11-24] MEDS ORDERED: HumuLIN R (REGULAR) INSULIN (NovoLIN R) **100U/ML** PER UNIT IV ONE (19:20)
[2022-11-24] MEDS ORDERED: DEXTROSE 50% 50ML SYRINGE IV ONE (19:20)
[2022-11-24] MEDS ORDERED: CALCIUM GLUCONATE 1,000MG/10ML VIAL (100MG/ML) IV ONE (19:20)
[2022-11-24 19:27] LABS: OSMOLALITY SERUM 314 MOSM/KG (275-295)
[2022-11-24] MEDS ORDERED: PATIROMER SORBITEX CALCIUM 8.4 GM POWDER PACKET (VELTASSA) PO ONE (20:10)
[2022-11-24] MEDS ORDERED: SODIUM CHLORIDE 0.9% 1000ML IV PRN (20:55)
[2022-11-24] MEDS ORDERED: HEPARIN 1,000UNITS/ML 10ML VIAL (FOR RADIOLOGY & DIALYSIS ONLY) XX SCH (20:55)
[2022-11-24] MEDS ORDERED: HEPARIN 1,000UNITS/ML 10ML VIAL (FOR RADIOLOGY & DIALYSIS ONLY) IV PRN (20:55)
[2022-11-24] MEDS ORDERED: HOME MED LIST COMPLETE! XX SCH (22:35)
[2022-11-24] MEDS ORDERED: DEXTROSE 50% 50ML SYRINGE IV STA (23:12)
[2022-11-24] MEDS ORDERED: ACETAMINOPHEN TAB 650MG DOSE (2X325MG) PO PRN (23:15)
[2022-11-24] MEDS ORDERED: IPRATROPIUM 0.5MG/ALBUTEROL 2.5MG INH SOL UD 3ML (DUONEB) INH PRN (23:15)
[2022-11-24] MEDS ORDERED: clonazePAM 1 MG TAB PO PRN (23:15)
[2022-11-24] MEDS ORDERED: MIDODRINE 5 MG TAB PO PRN (23:15)
[2022-11-25] VITALS (7 sets, daily range): BP systolic 58–94; BP diastolic 30–58; TEMP 97–97.3; O2SAT 99–100
[2022-11-25] MEDS ORDERED: NS 250 ML IV ONE (02:30)
[2022-11-25] MEDS ORDERED: MIDODRINE 5 MG TAB PO STA (02:31)
[2022-11-25] MEDS ORDERED: HEPARIN SOD (PORCINE) 5000UNITS/ML 1ML VIAL/SYRINGE SC SCH (06:00)
[2022-11-25 06:38] LABS: ALBUMIN 3.5 G/DL (3.2-5.2); ALKALINE PHOSPHATASE 234 U/L (46-116); ALT/SGPT 10 U/L (7.0-40); AST/SGOT < 8 U/L (<34); BILIRUBIN,TOTAL < 0.2 MG/DL (0.3-1.2); BLOOD UREA NITROGEN 47 MG/DL (9-23); CALCIUM LEVEL 9.4 MG/DL (8.5-10.1); CARBON DIOXIDE LEVEL 26 MMOL/L (20-31); CHLORIDE LEVEL 93 MMOL/L (98-107); CREATININE FOR GFR 10.35 MG/DL (0.70-1.30); GLOMERULAR FILTRATION RATE 5.8 (>60); GLUCOSE, FASTING 119 MG/DL (60-100); MAGNESIUM LEVEL 2.1 MG/DL (1.8-2.4); POTASSIUM SERUM 5.3 MMOL/L (3.5-5.1); SODIUM LEVEL 134 MMOL/L (136-145); TOTAL PROTEIN 6.7 G/DL (5.7-8.2)
[2022-11-25] MEDS ORDERED: (RENVELA) SEVELAMER **CARBONate** 800 MG TAB PO SCH (08:00)
[2022-11-25] MEDS ORDERED: PILL CUTTER 1 EACH XX ONE (08:15)
[2022-11-25] MEDS ORDERED: ASPIRIN 81MG ENTERIC TABLET PO SCH (09:00)
[2022-11-25] MEDS ORDERED: ROSUVASTATIN 10 MG TAB (CRESTOR) PO SCH (09:00)
[2022-11-25] MEDS ORDERED: METHADONE 10MG TAB PO SCH (09:00)
[2022-11-25] MEDS ORDERED: CARVedilol 6.25 MG TAB PO SCH (09:00)
[2022-11-25] MEDS ORDERED: OMEPRAZOLE 20MG CAP PO SCH (09:00)
[2022-11-25] MEDS ORDERED: VELT1POW PO (10:25)
== END 2022-11-25 12:40 | disposition home or self-care (01) ==
LOC: EDBD 15:25 → M ED 15:25 → M ED INP 22:04 → M PCU 11-25 01:55
PROVIDERS: ADMIT Internal Medicine; ATTEND Internal Medicine
DX: E87.5 Hyperkalemia (principal); N18.6 End stage renal disease; I12.0 Hypertensive chronic kidney disease with stage 5 chronic kidney disease or end stage renal disease; K21.9 Gastro-esophageal reflux disease without esophagitis; M25.561 Pain in right knee; Z79.891 Long term (current) use of opiate analgesic; Z79.82 Long term (current) use of aspirin; Z79.899 Other long term (current) drug therapy
CPT/HCPCS: 36415; 70450; 72125; 73564; 80048; 80053; 80076; 82140; 83735; 83930; 84100; 84443; 85025; 87635; 93005; 93041; 94760; 96374; 96375; 97161; 97165; 99285; G0257; G0378; J0612; J1815

== ENCOUNTER 2022-12-01 10:26 | Emergency (ER) | payer MEDICARE, MEDICAID ==
[~2022-12-01] VITALS: Ht 165.1 cm; Wt 58.5 kg
[~2022-12-01 10:26] MED LIST changes: +VELT1POW PO
[2022-12-01 12:32] LABS: BASO # 0.1 10^3/uL (0.0-0.2); BASO % 0.8 % (0.0-1.0); EOS # 0.4 10^3/uL (0.0-0.5); EOS % 5.3 % (0.0-3.0); HEMATOCRIT 33.3 % (42.0-52.0); HEMOGLOBIN 10.8 g/dl (13.5-17.5); LYMPH # 0.9 10^3/uL (1.5-5.0); LYMPH % 11.3 % (24.0-44.0); MEAN CORPUSCULAR HEMOGLOBIN 32.8 pg (27.0-33.0); MEAN CORPUSCULAR HGB CONC 32.4 g/dl (32.0-36.5); MEAN CORPUSCULAR VOLUME 101.2 fl (80.0-96.0); MONO % 13.7 % (2.0-8.0); NEUTROPHILS # 5.2 10^3/uL (1.5-8.5); NEUTROPHILS % 68.6 % (36.0-66.0); PLATELET COUNT, AUTOMATED 254 10^3/uL (150-450); RED BLOOD COUNT 3.29 10^6/uL (4.30-6.10); WHITE BLOOD COUNT 7.5 10^3/uL (4.0-10.0)
[2022-12-01] MEDS ORDERED: PATIROMER SORBITEX CALCIUM 8.4 GM POWDER PACKET (VELTASSA) PO ONE (12:35)
[2022-12-01 12:45] LABS: INR 1.2; PROTHROMBIN TIME 15.5 SECONDS (12.5-14.5)
[2022-12-01 14:17] LABS: CALCIUM LEVEL 8.6 MG/DL (8.5-10.1); CREATININE FOR GFR 14.89 MG/DL (0.70-1.30); GLOMERULAR FILTRATION RATE 3.8 (>60); POTASSIUM SERUM 7.1 MMOL/L (3.5-5.1)
[2022-12-01] MEDS ORDERED: HumuLIN R (REGULAR) INSULIN (NovoLIN R) **100U/ML** PER UNIT IV ONE (14:40)
[2022-12-01] MEDS ORDERED: CALCIUM CHLORIDE 10% 1 GM/10 ML SYR IV ONE (14:40)
[2022-12-01] MEDS ORDERED: DEXTROSE 50% 50ML SYRINGE IV ONE (14:40)
[2022-12-01] MEDS ORDERED: SODIUM BICARBONATE 8.4% INJ 50ML SYRINGE IV ONE (14:40)
[2022-12-01 15:13] LABS: CALCIUM LEVEL 9.6 MG/DL (8.5-10.1); CREATININE FOR GFR 15.03 MG/DL (0.70-1.30); GLOMERULAR FILTRATION RATE 3.8 (>60); POTASSIUM SERUM 7.2 MMOL/L (3.5-5.1)
[2022-12-01] MEDS ORDERED: clonazePAM 1 MG TAB PO ONE (15:15)
[2022-12-01 16:02] VITALS: BP 137/80; TEMP 97.9; O2SAT 100
== END 2022-12-01 16:07 | disposition short-term general hospital (02) ==
LOC: M ED 10:26
DX: T82.49XA Other complication of vascular dialysis catheter, initial encounter (principal); E87.6 Hypokalemia; N18.6 End stage renal disease; I25.10 Atherosclerotic heart disease of native coronary artery without angina pectoris; Z86.19 Personal history of other infectious and parasitic diseases; F11.20 Opioid dependence, uncomplicated; Z95.1 Presence of aortocoronary bypass graft; Z79.82 Long term (current) use of aspirin; Z79.899 Other long term (current) drug therapy
CPT/HCPCS: 36415; 80047; 80048; 85025; 85610; 87635; 93005; 96374; 96375; 99285; J1815

== ENCOUNTER 2022-12-10 10:18 | Inpatient (IN) | payer MEDICARE, MEDICAID ==
[~2022-12-10] VITALS: Ht 165.1 cm; Wt 53.7 kg
[2022-12-10 11:46] LABS: BASO # 0.1 10^3/uL (0.0-0.2); BASO % 0.7 % (0.0-1.0); EOS # 0.1 10^3/uL (0.0-0.5); EOS % 1.1 % (0.0-3.0); HEMOGLOBIN 11.4 g/dl (13.5-17.5); LYMPH # 0.7 10^3/uL (1.5-5.0); LYMPH % 7.2 % (24.0-44.0); MEAN CORPUSCULAR HEMOGLOBIN 33.1 pg (27.0-33.0); MEAN CORPUSCULAR HGB CONC 32.6 g/dl (32.0-36.5); MEAN CORPUSCULAR VOLUME 101.7 fl (80.0-96.0); MONO # 0.7 10^3/uL (0.0-0.8); MONO % 6.7 % (2.0-8.0); NEUTROPHILS # 8.1 10^3/uL (1.5-8.5); NEUTROPHILS % 83.9 % (36.0-66.0); PLATELET COUNT, AUTOMATED 282 10^3/uL (150-450); RED BLOOD COUNT 3.44 10^6/uL (4.30-6.10); WHITE BLOOD COUNT 9.7 10^3/uL (4.0-10.0)
[2022-12-10 12:06] LABS: INR 1.21; PROTHROMBIN TIME 15.6 SECONDS (12.5-14.5)
[2022-12-10 13:38] LABS: ALBUMIN 3.1 G/DL (3.2-5.2); ALKALINE PHOSPHATASE 203 U/L (46-116); ALT/SGPT 28 U/L (7.0-40); AST/SGOT 76 U/L (<34); BILIRUBIN,DIRECT < 0.1 MG/DL (<0.4); BILIRUBIN,TOTAL 0.2 MG/DL (0.3-1.2); BLOOD UREA NITROGEN 78 MG/DL (9-23); CARBON DIOXIDE LEVEL 21 MMOL/L (20-31); CHLORIDE LEVEL 95 MMOL/L (98-107); CREATININE FOR GFR 17.57 MG/DL (0.70-1.30); GLOMERULAR FILTRATION RATE 3.1 (>60); GLUCOSE, FASTING 121 MG/DL (60-100); MAGNESIUM LEVEL 2.3 MG/DL (1.8-2.4); PHOSPHORUS LEVEL 11.7 MG/DL (2.5-4.9); POTASSIUM SERUM 6.1 MMOL/L (3.5-5.1); SODIUM LEVEL 135 MMOL/L (136-145); TOTAL PROTEIN 6.3 G/DL (5.7-8.2)
[2022-12-10] MEDS ORDERED: SODIUM CHLORIDE 0.9% 1000ML IV PRN (13:45)
[2022-12-10] MEDS ORDERED: HEPARIN 1,000UNITS/ML 10ML VIAL (FOR RADIOLOGY & DIALYSIS ONLY) IV PRN (13:45)
[2022-12-10] MEDS ORDERED: HEPARIN 1,000UNITS/ML 10ML VIAL (FOR RADIOLOGY & DIALYSIS ONLY) XX SCH (13:45)
[2022-12-10] MEDS ORDERED: MED REC IN PROGRESS XX SCH ×2 (14:35→22:50)
[2022-12-10] MEDS ORDERED: MED REC CURRENTLY UNOBTAINABLE XX SCH (14:50)
[2022-12-10 18:09] VITALS: BP 119/78; TEMP 97.5; O2SAT 100
[2022-12-10 20:00] VITALS: BP 104/62; TEMP 97.9; O2SAT 98
[2022-12-10] MEDS ORDERED: VELT1POW PO (22:35)
[2022-12-11] VITALS: BP 92/64; TEMP 97.5; O2SAT 96
[2022-12-11 03:46] VITALS: BP 114/64; TEMP 98; O2SAT 97
[2022-12-11 06:31] LABS: HEMATOCRIT 36.5 % (42.0-52.0); MEAN CORPUSCULAR HEMOGLOBIN 33.1 pg (27.0-33.0); MEAN CORPUSCULAR HGB CONC 32.9 g/dl (32.0-36.5); MEAN CORPUSCULAR VOLUME 100.6 fl (80.0-96.0); PLATELET COUNT, AUTOMATED 287 10^3/uL (150-450); RED BLOOD COUNT 3.63 10^6/uL (4.30-6.10)
[2022-12-11] MEDS ORDERED: MIDODRINE 5 MG TAB PO PRN (06:50)
[2022-12-11] MEDS ORDERED: clonazePAM 1 MG TAB PO PRN (06:50)
[2022-12-11 07:06] LABS: CALCIUM LEVEL 9.5 MG/DL (8.5-10.1); CREATININE FOR GFR 11.91 MG/DL (0.70-1.30); GLOMERULAR FILTRATION RATE 4.9 (>60); POTASSIUM SERUM 5.3 MMOL/L (3.5-5.1)
[2022-12-11] MEDS ORDERED: (RENVELA) SEVELAMER **CARBONate** 800 MG TAB PO SCH (08:00)
[2022-12-11] MEDS ORDERED: LIDOCAINE 1% SDV 5ML VIAL SC PRN (08:10)
[2022-12-11] MEDS ORDERED: HEPARIN 1,000UNITS/ML 10ML VIAL (FOR RADIOLOGY & DIALYSIS ONLY) XX SCH (08:10)
[2022-12-11] MEDS ORDERED: HEPARIN 1,000UNITS/ML 10ML VIAL (FOR RADIOLOGY & DIALYSIS ONLY) IV PRN (08:10)
[2022-12-11] MEDS ORDERED: SODIUM CHLORIDE 0.9% 1000ML IV PRN (08:10)
[2022-12-11] MEDS: CARVedilol 6.25 MG TAB PO SCH ×2 (08:15→08:19)
[2022-12-11 08:19] VITALS: BP 114/64
[2022-12-11 08:50] VITALS: BP 105/63; TEMP 97; O2SAT 98
[2022-12-11] MEDS ORDERED: PATIROMER SORBITEX CALCIUM 8.4 GM POWDER PACKET (VELTASSA) PO SCH (09:00)
[2022-12-11] MEDS ORDERED: METHADONE 10MG TAB PO SCH (09:00)
[2022-12-11] MEDS ORDERED: ROSUVASTATIN 10 MG TAB (CRESTOR) PO SCH (09:00)
[2022-12-11] MEDS ORDERED: OMEPRAZOLE 20MG CAP PO SCH (09:00)
[2022-12-11] MEDS ORDERED: ASPIRIN 81MG ENTERIC TABLET PO SCH (09:00)
[2022-12-11] MEDS ORDERED: PATIROMER SORBITEX CALCIUM 8.4 GM POWDER PACKET (VELTASSA) PO ONE (09:00)
[2022-12-11 14:20] LABS: CALCIUM LEVEL 9.9 MG/DL (8.5-10.1); CREATININE FOR GFR 6.36 MG/DL (0.70-1.30); GLOMERULAR FILTRATION RATE 10.1 (>60)
== END 2022-12-11 14:09 | disposition home or self-care (01) | DRG 640 ==
LOC: EDBD 10:18 → M ED 10:18 → M ED INP 14:11 → ENRESERV 14:50 → M PCU 15:37
PROVIDERS: ADMIT General Practice; ATTEND General Practice
PROC: 5A1D70Z Performance of Urinary Filtration, Intermittent, Less than 6 Hours Per Day (ICD-10-PCS; principal; 2022-12-11)
DX: E87.5 Hyperkalemia (principal); N18.6 End stage renal disease; F11.20 Opioid dependence, uncomplicated; I25.10 Atherosclerotic heart disease of native coronary artery without angina pectoris; K21.9 Gastro-esophageal reflux disease without esophagitis; F41.9 Anxiety disorder, unspecified; F17.210 Nicotine dependence, cigarettes, uncomplicated; Z66 Do not resuscitate; E87.1 Hypo-osmolality and hyponatremia; E87.20 Acidosis, unspecified; D64.9 Anemia, unspecified; E83.52 Hypercalcemia; Z99.2 Dependence on renal dialysis; Z95.5 Presence of coronary angioplasty implant and graft; Z20.822 Contact with and (suspected) exposure to COVID-19; Z59.00 Homelessness unspecified; Z79.82 Long term (current) use of aspirin; Z79.899 Other long term (current) drug therapy

== ENCOUNTER 2022-12-21 23:55 | Emergency (ER) | payer MEDICARE, MEDICAID ==
[~2022-12-21] VITALS: Ht 152.4 cm; Wt 53.9 kg
[2022-12-21 23:55] VITALS: BP 105/64; TEMP 98.2; O2SAT 100
[~2022-12-21 23:55] MED LIST changes: +CLON-952 PO; -KLON2TAB PO
[2022-12-22 00:41] LABS: BASO # 0.1 10^3/uL (0.0-0.2); BASO % 0.5 % (0.0-1.0); EOS # 0.2 10^3/uL (0.0-0.5); EOS % 1.8 % (0.0-3.0); HEMATOCRIT 37.6 % (42.0-52.0); HEMOGLOBIN 12.2 g/dl (13.5-17.5); LYMPH # 0.9 10^3/uL (1.5-5.0); LYMPH % 9.7 % (24.0-44.0); MEAN CORPUSCULAR HEMOGLOBIN 32.4 pg (27.0-33.0); MEAN CORPUSCULAR HGB CONC 32.4 g/dl (32.0-36.5); MEAN CORPUSCULAR VOLUME 99.7 fl (80.0-96.0); MONO # 0.7 10^3/uL (0.0-0.8); MONO % 7.4 % (2.0-8.0); NEUTROPHILS # 7.4 10^3/uL (1.5-8.5); NEUTROPHILS % 80.3 % (36.0-66.0); PLATELET COUNT, AUTOMATED 337 10^3/uL (150-450); RED BLOOD COUNT 3.77 10^6/uL (4.30-6.10); WHITE BLOOD COUNT 9.2 10^3/uL (4.0-10.0)
[2022-12-22 01:07] LABS: ALBUMIN 3.4 G/DL (3.2-5.2); ALKALINE PHOSPHATASE 264 U/L (46-116); ALT/SGPT 15 U/L (7.0-40); AST/SGOT 20 U/L (<34); BILIRUBIN,TOTAL < 0.2 MG/DL (0.3-1.2); BLOOD UREA NITROGEN 74 MG/DL (9-23); CALCIUM LEVEL 10.1 MG/DL (8.5-10.1); CARBON DIOXIDE LEVEL 28 MMOL/L (20-31); CHLORIDE LEVEL 89 MMOL/L (98-107); CREATININE FOR GFR 11.87 MG/DL (0.70-1.30); GLOMERULAR FILTRATION RATE 4.9 (>60); GLUCOSE, FASTING 132 MG/DL (60-100); PHOSPHORUS LEVEL 9.3 MG/DL (2.5-4.9); POTASSIUM SERUM 5.3 MMOL/L (3.5-5.1); SODIUM LEVEL 133 MMOL/L (136-145); TOTAL PROTEIN 7.1 G/DL (5.7-8.2)
== END 2022-12-22 05:24 | disposition left against medical advice (07) ==
LOC: M ED 23:55
DX: Z53.21 Procedure and treatment not carried out due to patient leaving prior to being seen by health care provider (principal)

== ENCOUNTER 2022-12-25 23:55 | Emergency (ER) | payer MEDICARE, MEDICAID ==
[~2022-12-25] VITALS: Ht 165.1 cm; Wt 54.7 kg
[~2022-12-25 23:55] MED LIST changes: -CLON-952 PO; +KLON2TAB PO
[2022-12-25 23:57] VITALS: BP 121/73; TEMP 97.6; O2SAT 99
== END 2022-12-26 06:15 | disposition left against medical advice (07) ==
LOC: M ED 23:55
DX: Z53.21 Procedure and treatment not carried out due to patient leaving prior to being seen by health care provider (principal)

== ENCOUNTER 2023-01-12 17:09 | Emergency (ER) | payer MEDICARE, MEDICAID ==
[~2023-01-12] VITALS: Ht 165.1 cm; Wt 52.1 kg
[~2023-01-12 17:09] MED LIST changes: +CLON-952 PO; -KLON2TAB PO
[2023-01-12] MEDS ORDERED: ACETAMINOPHEN 500 MG TAB PO ONE (21:50)
[2023-01-12] MEDS ORDERED: clonazePAM 1 MG TAB PO ONE (21:50)
[2023-01-12 23:26] VITALS: BP 100/51; TEMP 96.7; O2SAT 95
== END 2023-01-12 23:50 | disposition home or self-care (01) ==
LOC: M ED 17:09
DX: S73.101A Unspecified sprain of right hip, initial encounter (principal); X50.0XXA Overexertion from strenuous movement or load, initial encounter; Y92.009 Unspecified place in unspecified non-institutional (private) residence as the place of occurrence of the external cause; I10 Essential (primary) hypertension; N18.9 Chronic kidney disease, unspecified; F19.10 Other psychoactive substance abuse, uncomplicated; Z98.61 Coronary angioplasty status; Z95.1 Presence of aortocoronary bypass graft; Z79.82 Long term (current) use of aspirin; Z79.899 Other long term (current) drug therapy

== ENCOUNTER 2023-01-26 10:16 | Inpatient (IN) | payer MEDICARE, MEDICAID ==
[~2023-01-26] VITALS: Ht 165.1 cm; Wt 50.1 kg
[2023-01-26 13:57] LABS: CALCIUM LEVEL 10.4 MG/DL (8.5-10.1); CREATININE FOR GFR 17.28 MG/DL (0.70-1.30); GLOMERULAR FILTRATION RATE 3.2 (>60); POTASSIUM SERUM 7.2 MMOL/L (3.5-5.1)
[2023-01-26] MEDS ORDERED: LIDOCAINE 1% SDV 5ML VIAL SC PRN (14:35)
[2023-01-26] MEDS ORDERED: HEPARIN 1,000UNITS/ML 10ML VIAL (FOR RADIOLOGY & DIALYSIS ONLY) XX SCH (14:35)
[2023-01-26] MEDS ORDERED: HEPARIN 1,000UNITS/ML 10ML VIAL (FOR RADIOLOGY & DIALYSIS ONLY) IV PRN (14:35)
[2023-01-26] MEDS ORDERED: SODIUM CHLORIDE 0.9% 1000ML IV PRN (14:35)
[2023-01-26 15:07] LABS: HEMATOCRIT 31.5 % (42.0-52.0); HEMOGLOBIN 10.5 g/dl (13.5-17.5); MEAN CORPUSCULAR HEMOGLOBIN 33.1 pg (27.0-33.0); MEAN CORPUSCULAR HGB CONC 33.3 g/dl (32.0-36.5); MEAN CORPUSCULAR VOLUME 99.4 fl (80.0-96.0); PLATELET COUNT, AUTOMATED 274 10^3/uL (150-450); RED BLOOD COUNT 3.17 10^6/uL (4.30-6.10); WHITE BLOOD COUNT 7.7 10^3/uL (4.0-10.0)
[2023-01-26] MEDS ORDERED: MAALOX 30 ML SUSP *UDC PO PRN (15:10)
[2023-01-26] MEDS ORDERED: MOM 30ML SUSPENSION UDC PO PRN (15:10)
[2023-01-26] MEDS ORDERED: ACETAMINOPHEN TAB 650MG DOSE (2X325MG) PO PRN (15:10)
[2023-01-26] MEDS ORDERED: MED REC CURRENTLY UNOBTAINABLE XX SCH (16:25)
[2023-01-26] MEDS ORDERED: CONS10SO3 PO (18:22)
[2023-01-26] MEDS ORDERED: HOME MED LIST COMPLETE! XX SCH (18:25)
[2023-01-26] MEDS ORDERED: CARVedilol 6.25 MG TAB PO SCH (21:00)
[2023-01-26] MEDS ORDERED: NICOTINE 21MG/24HR 1 EA TRANSDERMAL TD SCH (21:00)
[2023-01-26 21:15] VITALS: BP 105/82; TEMP 98.3; O2SAT 98
[2023-01-26] MEDS: OMEPRAZOLE 20MG CAP PO SCH (21:22)
[2023-01-26] MEDS: HEPARIN SOD (PORCINE) 5000UNITS/ML 1ML VIAL/SYRINGE SQ SCH (21:23)
[2023-01-26] MEDS: ASPIRIN 81MG ENTERIC TABLET PO SCH (21:36)
[2023-01-26] MEDS: METHADONE 10MG TAB PO SCH (21:37)
[2023-01-26] MEDS: clonazePAM 1 MG TAB PO PRN (21:39)
[2023-01-26 23:34] VITALS: BP 144/81; TEMP 98; O2SAT 97
[2023-01-27 03:54] VITALS: BP 101/58; TEMP 97.6; O2SAT 99
[2023-01-27] MEDS ORDERED: HEPARIN 1,000UNITS/ML 10ML VIAL (FOR RADIOLOGY & DIALYSIS ONLY) IV PRN (07:25)
[2023-01-27] MEDS ORDERED: SODIUM CHLORIDE 0.9% 1000ML IV PRN (07:25)
[2023-01-27] MEDS ORDERED: HEPARIN 1,000UNITS/ML 10ML VIAL (FOR RADIOLOGY & DIALYSIS ONLY) XX SCH (07:25)
[2023-01-27 07:35] VITALS: BP 111/71; TEMP 97.7; O2SAT 98
[2023-01-27] MEDS ORDERED: PILL CUTTER 1 EACH XX ONE (08:15)
[2023-01-27 08:28] LABS: BASO # 0.1 10^3/uL (0.0-0.2); BASO % 1.3 % (0.0-1.0); EOS # 0.5 10^3/uL (0.0-0.5); EOS % 8.5 % (0.0-3.0); HEMATOCRIT 39.5 % (42.0-52.0); LYMPH # 0.7 10^3/uL (1.5-5.0); LYMPH % 11.5 % (24.0-44.0); MEAN CORPUSCULAR HGB CONC 31.9 g/dl (32.0-36.5); MEAN CORPUSCULAR VOLUME 100.3 fl (80.0-96.0); MONO % 17.3 % (2.0-8.0); NEUTROPHILS # 3.7 10^3/uL (1.5-8.5); NEUTROPHILS % 61.1 % (36.0-66.0); PLATELET COUNT, AUTOMATED 268 10^3/uL (150-450); RED BLOOD COUNT 3.94 10^6/uL (4.30-6.10)
[2023-01-27 08:30] LABS: HEMOGLOBIN 12.6 g/dl (13.5-17.5)
[2023-01-27 08:44] LABS: ALBUMIN 2.8 G/DL (3.2-5.2); CALCIUM LEVEL 11.2 MG/DL (8.5-10.1); CREATININE FOR GFR 10.13 MG/DL (0.70-1.30); GLOMERULAR FILTRATION RATE 5.9 (>60); PHOSPHORUS LEVEL 10.3 MG/DL (2.5-4.9); POTASSIUM SERUM 5.9 MMOL/L (3.5-5.1)
[2023-01-27] MEDS: OMEPRAZOLE 20MG CAP PO SCH (09:00)
[2023-01-27] MEDS ORDERED: ROSUVASTATIN 10 MG TAB (CRESTOR) PO SCH (09:00)
[2023-01-27] MEDS ORDERED: CINACALCET 30 MG TAB (SENSIPAR) PO SCH (09:00)
[2023-01-27] MEDS: ASPIRIN 81MG ENTERIC TABLET PO SCH (09:00)
[2023-01-27] MEDS: HEPARIN SOD (PORCINE) 5000UNITS/ML 1ML VIAL/SYRINGE SQ SCH (09:00)
[2023-01-27] MEDS: METHADONE 10MG TAB PO SCH (09:01)
[2023-01-27] MEDS ORDERED: PATIROMER SORBITEX CALCIUM 8.4 GM POWDER PACKET (VELTASSA) PO SCH (12:00)
[2023-01-27 14:23] VITALS: BP 116/81; TEMP 97.1; O2SAT 99
[2023-01-27] MEDS: clonazePAM 1 MG TAB PO PRN (16:37)
== END 2023-01-27 18:28 | disposition home or self-care (01) | DRG 640 ==
LOC: M ED 10:16 → M ED INP 16:10 → M PCU 21:20
PROVIDERS: ADMIT Internal Medicine; ATTEND Internal Medicine
PROC: 5A1D70Z Performance of Urinary Filtration, Intermittent, Less than 6 Hours Per Day (ICD-10-PCS; principal; 2023-01-26)
DX: E87.5 Hyperkalemia (principal); N18.6 End stage renal disease; F11.20 Opioid dependence, uncomplicated; I25.10 Atherosclerotic heart disease of native coronary artery without angina pectoris; E87.20 Acidosis, unspecified; I73.9 Peripheral vascular disease, unspecified; E21.2 Other hyperparathyroidism; M25.551 Pain in right hip; K21.9 Gastro-esophageal reflux disease without esophagitis; F17.210 Nicotine dependence, cigarettes, uncomplicated; F41.9 Anxiety disorder, unspecified; D63.1 Anemia in chronic kidney disease; Z66 Do not resuscitate; Z79.82 Long term (current) use of aspirin; Z79.899 Other long term (current) drug therapy; Z95.5 Presence of coronary angioplasty implant and graft; Z99.2 Dependence on renal dialysis

== ENCOUNTER 2023-02-05 13:56 | Emergency (ER) | payer MEDICARE, MEDICAID ==
[~2023-02-05] VITALS: Ht 165.1 cm; Wt 50.0 kg
[~2023-02-05 13:56] MED LIST changes: +CONS10SO3 PO
[2023-02-05] MEDS ORDERED: clonazePAM 1 MG TAB PO ONE (16:50)
[2023-02-05] MEDS ORDERED: NEPH1TAB PO (16:52)
[2023-02-05] MEDS ORDERED: OMEP-173 PO (16:52)
[2023-02-05] MEDS ORDERED: ASPI-161 PO (16:52)
[2023-02-05 17:05] VITALS: BP 121/76; TEMP 97.8; O2SAT 100
== END 2023-02-05 17:18 | disposition home or self-care (01) ==
LOC: M ED 13:56
DX: Z76.0 Encounter for issue of repeat prescription (principal); I25.2 Old myocardial infarction; I10 Essential (primary) hypertension; K21.9 Gastro-esophageal reflux disease without esophagitis; F19.10 Other psychoactive substance abuse, uncomplicated; E78.5 Hyperlipidemia, unspecified; F15.10 Other stimulant abuse, uncomplicated; Z79.82 Long term (current) use of aspirin; Z79.83 Long term (current) use of bisphosphonates; Z79.899 Other long term (current) drug therapy

== ENCOUNTER 2023-02-11 17:56 | Emergency (ER) | payer MEDICARE, MEDICAID ==
[~2023-02-11] VITALS: Ht 165.1 cm; Wt 51.0 kg
[2023-02-11] MEDS ORDERED: clonazePAM 1 MG TAB PO ONE (21:15)
[2023-02-11 21:50] VITALS: BP 120/69; TEMP 97.2; O2SAT 100
== END 2023-02-11 21:55 | disposition home or self-care (01) ==
LOC: M ED 17:56
DX: T82.868A Thrombosis due to vascular prosthetic devices, implants and grafts, initial encounter (principal); R22.33 Localized swelling, mass and lump, upper limb, bilateral; I25.2 Old myocardial infarction; I10 Essential (primary) hypertension; G40.909 Epilepsy, unspecified, not intractable, without status epilepticus; M54.50 Low back pain, unspecified; K21.9 Gastro-esophageal reflux disease without esophagitis; E78.5 Hyperlipidemia, unspecified; F19.10 Other psychoactive substance abuse, uncomplicated; F41.9 Anxiety disorder, unspecified; F17.200 Nicotine dependence, unspecified, uncomplicated; Z79.82 Long term (current) use of aspirin; Z79.83 Long term (current) use of bisphosphonates; Z79.899 Other long term (current) drug therapy

== ENCOUNTER 2023-03-23 11:03 | Observation (INO) | payer MEDICARE, MEDICAID ==
[~2023-03-23] VITALS: Ht 165.1 cm; Wt 53.4 kg
[2023-03-23] MEDS ORDERED: KETOROLAC 60MG 2ML VIAL IM ONE (12:50)
[2023-03-23 13:43] LABS: CALCIUM LEVEL 9.7 MG/DL (8.5-10.1); CREATININE FOR GFR 11.76 MG/DL (0.70-1.30); POTASSIUM SERUM 7.1 MMOL/L (3.5-5.1)
[2023-03-23] MEDS: HEPARIN SOD (PORCINE) 5000UNITS/ML 1ML VIAL/SYRINGE SC SCH ×2 (14:00→20:23)
[2023-03-23] MEDS ORDERED: SODIUM CHLORIDE 0.9% 1000ML IV PRN (14:15)
[2023-03-23] MEDS ORDERED: HEPARIN 1,000UNITS/ML 10ML VIAL (FOR RADIOLOGY & DIALYSIS ONLY) XX SCH (14:15)
[2023-03-23] MEDS ORDERED: PATIROMER SORBITEX CALCIUM 8.4 GM POWDER PACKET (VELTASSA) PO ONE (14:15)
[2023-03-23] MEDS ORDERED: HEPARIN 1,000UNITS/ML 10ML VIAL (FOR RADIOLOGY & DIALYSIS ONLY) IV PRN (14:15)
[2023-03-23 14:34] LABS: BASO % 0.4 % (0.0-1.0); EOS # 0.1 10^3/uL (0.0-0.5); EOS % 0.6 % (0.0-3.0); HEMATOCRIT 31.2 % (42.0-52.0); HEMOGLOBIN 10.1 g/dl (13.5-17.5); LYMPH # 0.8 10^3/uL (1.5-5.0); LYMPH % 7.5 % (24.0-44.0); MEAN CORPUSCULAR HEMOGLOBIN 31.9 pg (27.0-33.0); MEAN CORPUSCULAR HGB CONC 32.4 g/dl (32.0-36.5); MEAN CORPUSCULAR VOLUME 98.4 fl (80.0-96.0); MONO # 1.1 10^3/uL (0.0-0.8); MONO % 10.2 % (2.0-8.0); NEUTROPHILS # 8.8 10^3/uL (1.5-8.5); NEUTROPHILS % 80.7 % (36.0-66.0); PLATELET COUNT, AUTOMATED 304 10^3/uL (150-450); RED BLOOD COUNT 3.17 10^6/uL (4.30-6.10); WHITE BLOOD COUNT 10.9 10^3/uL (4.0-10.0)
[2023-03-23 14:51] LABS: MAGNESIUM LEVEL 2.3 MG/DL (1.8-2.4); PHOSPHORUS LEVEL 9.2 MG/DL (2.5-4.9)
[2023-03-23] MEDS ORDERED: MED REC IN PROGRESS XX SCH (15:10)
[2023-03-23] MEDS ORDERED: ASPI81TA26 PO (15:23)
[2023-03-23] MEDS ORDERED: NEPH1TAB PO (15:25)
[2023-03-23] MEDS ORDERED: OMEP-173 PO (15:26)
[2023-03-23] MEDS ORDERED: HOME MED LIST COMPLETE! XX SCH (15:30)
[2023-03-23] MEDS: ATORVASTATIN 20 MG TAB PO SCH (17:11)
[2023-03-23] MEDS: OMEPRAZOLE 20MG CAP PO SCH (17:11)
[2023-03-23] MEDS: ASPIRIN 81MG ENTERIC TABLET PO SCH (17:11)
[2023-03-23] MEDS: (RENVELA) SEVELAMER **CARBONate** 800 MG TAB PO SCH (17:12)
[2023-03-23 20:03] VITALS: BP 138/88; TEMP 98.1; O2SAT 92
[2023-03-23] MEDS: CARVedilol 6.25 MG TAB PO SCH (20:22)
[2023-03-23] MEDS: clonazePAM 1 MG TAB PO SCH (20:22)
[2023-03-24] MEDS: HEPARIN SOD (PORCINE) 5000UNITS/ML 1ML VIAL/SYRINGE SC SCH (05:08)
[2023-03-24 06:00] VITALS: BP 106/58; TEMP 98.8; O2SAT 98
[2023-03-24 06:30] LABS: HEMATOCRIT 27.7 % (42.0-52.0); HEMOGLOBIN 8.8 g/dl (13.5-17.5); MEAN CORPUSCULAR HEMOGLOBIN 31.8 pg (27.0-33.0); MEAN CORPUSCULAR HGB CONC 31.8 g/dl (32.0-36.5); PLATELET COUNT, AUTOMATED 263 10^3/uL (150-450); RED BLOOD COUNT 2.77 10^6/uL (4.30-6.10); WHITE BLOOD COUNT 9.8 10^3/uL (4.0-10.0)
[2023-03-24 07:03] LABS: CALCIUM LEVEL 9.3 MG/DL (8.5-10.1); CREATININE FOR GFR 6.78 MG/DL (0.70-1.30); GLOMERULAR FILTRATION RATE 9.4 (>60); PHOSPHORUS LEVEL 8.1 MG/DL (2.5-4.9); POTASSIUM SERUM 5.1 MMOL/L (3.5-5.1)
[2023-03-24 08:28] VITALS: BP 111/71
[2023-03-24] MEDS: ATORVASTATIN 20 MG TAB PO SCH (08:28)
[2023-03-24] MEDS: ASPIRIN 81MG ENTERIC TABLET PO SCH (08:28)
[2023-03-24] MEDS: CARVedilol 6.25 MG TAB PO SCH (08:28)
[2023-03-24] MEDS: (RENVELA) SEVELAMER **CARBONate** 800 MG TAB PO SCH (08:28)
[2023-03-24] MEDS: clonazePAM 1 MG TAB PO SCH (08:29)
[2023-03-24] MEDS: OMEPRAZOLE 20MG CAP PO SCH (08:29)
[2023-03-24] MEDS ORDERED: PILL CUTTER 1 EACH XX PRN (10:50)
[2023-03-24] MEDS ORDERED: METHADONE 10MG TAB PO SCH (10:50)
[2023-03-24] MEDS ORDERED: ATOR40TA75 PO (10:51)
[2023-03-24] MEDS ORDERED: CARV6.25 PO (10:51)
[2023-03-24] MEDS ORDERED: SEVE800T13 PO (10:51)
== END 2023-03-24 11:34 | disposition home or self-care (01) ==
LOC: M ED 12:53 → M ED INP 15:12 → ENRESERV 16:26 → M MSPAV 16:59
PROVIDERS: ADMIT Internal Medicine; ATTEND Internal Medicine
DX: E87.5 Hyperkalemia (principal); N18.6 End stage renal disease; Z91.199 Patient's noncompliance with other medical treatment and regimen due to unspecified reason; E21.2 Other hyperparathyroidism; D63.8 Anemia in other chronic diseases classified elsewhere; B18.2 Chronic viral hepatitis C; Z95.1 Presence of aortocoronary bypass graft; I25.10 Atherosclerotic heart disease of native coronary artery without angina pectoris; K21.9 Gastro-esophageal reflux disease without esophagitis; F41.9 Anxiety disorder, unspecified; Z79.82 Long term (current) use of aspirin; Z79.899 Other long term (current) drug therapy
CPT/HCPCS: 36415; 80047; 80048; 83735; 84100; 85025; 85027; 87635; 93005; 99285; G0257; G0378